=== PATIENT | female | born 1965 | race Caucasian/White ===

== ENCOUNTER → 2018-02-02 12:35 | Outpatient (CLI) | payer BC, SELFPAY ==
--- NOTE | 2018-02-02 12:40 | BI_ITS ---
MAMMOGRAPHY - BILATERAL SCREENING REASON FOR EXAM: Female, 52 years old. Routine annual screening examination. PERTINENT HISTORY: Aunt with breast cancer. TECHNIQUE: Digital bilateral breast good (3D mammographic acquisition) in the CC and MLO projections. 2-D mediolateral oblique (MLO) and craniocaudad (CC) views of both breasts were obtained. CAD: Full Field Digital Mammography with Computer Added Detection was performed. COMPARISON: Comparison is made with prior outside examination dated January 31, 2017. FINDINGS: Breast Composition: The breasts are extremely dense, which lowers the sensitivity of mammography. There are no dominant masses or suspicious calcifications. No other significant abnormalities are identified. There has been no significant change since the prior study. BI/SCREENING MAMM (CAD), BILAT IMPRESSION: Stable bilateral screening mammogram. Yearly follow-up mammogram recommended. (A) ASSESSMENT CATEGORY: BIRADS Category 1: Negative. A letter regarding these results will be sent to the patient by the facility within 30 days. Approximately 10% of breast cancers are not detected by mammography. A normal mammogram should not delay biopsy of a clinically suspicious abnormality. [id number] Electronically Signed: Parag Lai MD at 15:39 EST Tel [phone], Service support ,
== END ==
PROVIDERS: Visit Provider Obstetrics & Gynecology
DX: Z12.31 Encounter for screening mammogram for malignant neoplasm of breast (principal)
CPT/HCPCS: 77063; 77067

== ENCOUNTER → 2018-11-16 | Outpatient (CLI) | payer BC, SELFPAY ==
[2018-04-27 15:17] VITALS: BMI 30.4
[2018-11-16 17:30] LABS: Absolute Lymphocyte Count 2.49 X10^3/uL (0.83-4.51); Absolute Neutrophil Count 4.4 X10^3/uL (2.0-7.7); Basophil# 0.04 X10^3/uL; Basophil% 0.5 % (0-1); Eosinophil# 0.24 X10^3/uL; Eosinophils% 3.1 % (0-5); Hematocrit 43.7 % (37-47); Hemoglobin 14.9 g/dL (12.0-15.0); Lymphocyte # 2.49 X10^3/ul (4.0); Lymphocyte % 32.5 % (19-41); Mean Corp Hgb Conc 34.1 g/dL (32-36); Mean Corpuscular Volume 93.8 fL (81-99); Mean Platelet Vol. 10.4 fl (6.2-12.0); Monocyte# 0.48 X10^3/uL; Monocyte% 6.3 % (0-10); NRBC Flagged by Analyzer 0 % (0-5); Neutrophil % 57.3 % (47-70); Platelet Count 224 K/mm3 (150-450); RBC Distribution Width CV 11.9 % (11.6-14.6); RBC Distribution Width SD 40.6 fl (35.1-43.9); Red Blood Count 4.66 M/mm3 (4.2-5.4); White Blood Count 7.7 K/mm3 (4.4-11.0)
[2018-11-16 17:56] LABS: AST(SGOT) 21 U/L (15-37); Alanine Aminotransfer ALT/SGPT 28 U/L (13-56); Albumin, Serum 3.5 g/dL (3.2-5.0); Alkaline Phosphatase 62 U/L (45-117); Anion Gap 7 (5-15); BUN 20 mg/dL (7-18); BUN/Creat Ratio 23.6 RATIO (10-20); Calcium,Total 8.5 mg/dL (8.5-10.1); Chloride 108 mmol/L (98-107); Creatinine, Serum 0.85 mg/dL (0.55-1.02); EST Glomerular Filtration Rate 74 mL/min (>60); Est Glom Filt Rate - Afr Amer 90 mL/min (>60); Ferritin 294 ng/mL (8-252); Globulin 3.5 g/dL (2.2-4.2); Glucose 86 mg/dL (74-106); Potassium 3.9 mmol/L (3.5-5.1); Sodium Level 141 mmol/L (136-145)
[2018-11-23 12:50] LABS: Anti-Nuclear Antibody Test Negative (.)
== END | disposition home or self-care (01) ==
LOC: MTLAB 15:22
PROVIDERS: Family Provider Internal Medicine; PCP Internal Medicine; Referring Provider Physician Assistant; Visit Provider Physician Assistant
DX: L65.9 Nonscarring hair loss, unspecified (principal)
CPT/HCPCS: 36415; 80053; 82728; 85025; 86038

== ENCOUNTER → 2018-12-02 | Outpatient (CLI) | payer BC, SELFPAY ==
[2018-04-27 15:17] VITALS: BMI 30.4
[2018-12-02 14:26] LABS: T3 Uptake 35 % (30-39); T4 Free Direct 0.93 ng/dL (0.76-1.46); T4 Total, Thyroxin 8.1 ug/dL (4.8-13.9); T7 / Free Thyroxin Index 2.8 (1.4-4.5); Thyroid Stim Hormone (TSH) 2.08 uIU/mL (0.358-3.74)
== END | disposition home or self-care (01) ==
LOC: LAB.FUTURE 12:33
PROVIDERS: Family Provider Internal Medicine; PCP Internal Medicine; Referring Provider Physician Assistant; Visit Provider Physician Assistant
DX: L65.9 Nonscarring hair loss, unspecified (principal); L82.1 Other seborrheic keratosis; D18.01 Hemangioma of skin and subcutaneous tissue
CPT/HCPCS: 36415; 84436; 84439; 84443; 84479

== ENCOUNTER → 2019-02-03 12:55 | Outpatient (CLI) | payer OTHER, SELFPAY ==
[2018-04-27 15:17] VITALS: BMI 30.4
--- NOTE | 2019-02-03 12:59 | BI_ITS ---
MAMMOGRAPHY - BILATERAL SCREENING 3-D TOMOSYNTHESIS REASON FOR EXAM: Female, 53 years old. PERTINENT HISTORY: No significant family history. TECHNIQUE: 2-D mammograms and 3-D Tomosynthesis of the breast (s) were performed. CAD was performed. COMPARISON: February 02, 2018 FINDINGS: The breast composition is of heterogeneously dense fibroglandular tissue that may obscure subtle lesions. No dense spiculated masses or suspicious microcalcifications are identified. No architectural distortion is identified. There is no skin thickening or retraction. There has been no significant change since the prior study of February 02, 2018. BI/SCREEN MAMM (CAD) W/GEOFF BILAT IMPRESSION: No mammographic signs of malignancy. Routine yearly mammograms recommended. ASSESSMENT CATEGORY: BIRADS Category 1: Negative. A letter regarding these results will be sent to the patient by the facility within 30 days. FOLLOW UP RECOMMENDATION: Yearly follow up mammogram recommended. (A) Approximately 10% of breast cancers are not detected by mammography. A normal mammogram should not delay biopsy of a clinically suspicious abnormality. Electronically Signed: José Miguel Harman, at 13:20 EST Tel , Service support ,
== END ==
PROVIDERS: Family Provider Internal Medicine; PCP Internal Medicine; Referring Provider Obstetrics & Gynecology; Visit Provider Obstetrics & Gynecology
DX: Z12.31 Encounter for screening mammogram for malignant neoplasm of breast (principal)
CPT/HCPCS: 77063; 77067

== ENCOUNTER → 2019-09-22 12:44 | Outpatient (CLI) | payer OTHER, SELFPAY ==
[2019-03-25 15:23] VITALS: BMI 30.4
--- NOTE | 2019-09-22 12:49 | RAD_ITS ---
STUDY: X-RAY - RIGHT KNEE REASON FOR EXAM: Female, 54 years old. CHRONIC PAIN, NO INJURY TECHNIQUE: 4 view(s) of the knee. COMPARISON: None. FINDINGS: Normal visualized distal femur. Normal visualized proximal tibia and fibula. Normal proximal tibiofibular articulation. Normal medial femorotibial compartment. Normal lateral femorotibial compartment. There is moderate degenerative arthrosis of the patellofemoral articulation. The soft tissue structures are unremarkable. RAD/Knee 4 or More Views IMPRESSION: Isolated patellofemoral compartment arthrosis possibly from patellofemoral maltracking. MRI may be useful. Electronically Signed: Franky Dewitt MD at 13:25 EDT Tel , Service support ,
--- NOTE | 2019-09-22 12:49 | RAD_ITS ---
STUDY: X-RAY - LEFT KNEE REASON FOR EXAM: Female, 54 years old. CHRONIC PAIN, NO INJURY TECHNIQUE: 4 view(s) of the knee. COMPARISON: None. FINDINGS: Normal visualized distal femur. Normal visualized proximal tibia and fibula. Normal proximal tibiofibular articulation. Normal medial femorotibial compartment. Normal lateral femorotibial compartment. There is moderate degenerative arthrosis of the patellofemoral articulation. The soft tissue structures are unremarkable. RAD/Knee 4 or More Views IMPRESSION: Isolated patellofemoral compartment arthrosis possibly from patellofemoral maltracking. MRI may be useful. Electronically Signed: Franky Dewitt MD at 13:24 EDT Tel , Service support ,
[2019-09-22 16:24] LABS: Absolute Lymphocyte Count 2.44 X10^3/uL (0.83-4.51); Basophil# 0.03 X10^3/uL; Basophil% 0.4 % (0-1); Eosinophil# 0.25 X10^3/uL; Eosinophils% 3.4 % (0-5); Hematocrit 44.2 % (37-47); Hemoglobin 14.9 g/dL (12.0-15.0); Lymphocyte # 2.44 X10^3/ul (4.0); Lymphocyte % 33.6 % (19-41); Mean Corp Hgb Conc 33.7 g/dL (32-36); Mean Corpuscular Hgb 31.8 pg (27.0-32.0); Mean Corpuscular Volume 94.4 fL (81-99); Mean Platelet Vol. 10.2 fl (6.2-12.0); Monocyte% 6.9 % (0-10); NRBC Flagged by Analyzer 0 % (0-5); Neutrophil # 4.03 X10^3/uL (2.7-7.7); Neutrophil % 55.6 % (47-70); Platelet Count 246 K/mm3 (150-450); RBC Distribution Width CV 12.1 % (11.6-14.6); Red Blood Count 4.68 M/mm3 (4.2-5.4); White Blood Count 7.3 K/mm3 (4.4-11.0)
[2019-09-22 16:27] LABS: Vitamin B12 836 pg/mL (211-911); Vitamin D,25 Hydroxy 31.2 ng/mL
[2019-09-22 16:40] LABS: ALB/GLOB Ratio 1.1 RATIO (0.9-2.4); AST(SGOT) 23 U/L (15-37); Alanine Aminotransfer ALT/SGPT 31 U/L (13-56); Albumin, Serum 3.7 g/dL (3.2-5.0); Alkaline Phosphatase 55 U/L (45-117); Anion Gap 4 (5-15); BUN 12 mg/dL (7-18); BUN/Creat Ratio 16.8 RATIO (10-20); Chloride 110 mmol/L (98-107); Creatinine, Serum 0.72 mg/dL (0.55-1.02); EST Glomerular Filtration Rate 90 mL/min (>60); Est Glom Filt Rate - Afr Amer 108 mL/min (>60); Globulin 3.3 g/dL (2.2-4.2); Glucose 85 mg/dL (74-106); Potassium 3.9 mmol/L (3.5-5.1); Sodium Level 141 mmol/L (136-145); T4 Free Direct 1.02 ng/dL (0.76-1.46)
== END ==
PROVIDERS: PCP Family Medicine; Referring Provider Family Medicine; Visit Provider Family Medicine
DX: R53.83 Other fatigue (principal); E04.1 Nontoxic single thyroid nodule; M25.561 Pain in right knee; M25.562 Pain in left knee
CPT/HCPCS: 36415; 73564; 80053; 82306; 82607; 84439; 84443; 85025

== ENCOUNTER → 2019-10-04 09:05 | Outpatient (CLI) | payer OTHER, SELFPAY ==
[2019-03-25 15:23] VITALS: BMI 30.4
--- NOTE | 2019-10-04 09:12 | US_ITS ---
STUDY: THYROID ULTRASOUND REASON FOR EXAM: Female, 54 years old. NODULE FELT BY DOCTOR TECHNIQUE: Ultrasound evaluation of the thyroid was performed with real-time and static smith-scale imaging. COMPARISON: None. FINDINGS: RIGHT LOBE: The right lobe of the thyroid gland measures 4.2 x 1.5 x 1.9 cm. There is a homogeneous echotexture. Several primarily hypoechoic nodules are seen measuring 3 mm, 5 mm, and 10 mm. LEFT LOBE: The left lobe of the thyroid gland measures 4.2 x 1.8 x 1.4 cm. There is a homogeneous echotexture. There is a 1.5 cm solid lower pole nodule. ISTHMUS: The isthmus measures 3 mm . The regional lymph nodes are normal. US/Thyroid IMPRESSION: Several nodules as above including a dominant 1.5 cm nodule of the left lobe for which ultrasound-guided biopsy should be considered. Electronically Signed: Paras Ravi MD at 19:28 EDT , Service support ,
== END ==
PROVIDERS: PCP Family Medicine; Referring Provider Family Medicine; Visit Provider Family Medicine
DX: E04.1 Nontoxic single thyroid nodule (principal)
CPT/HCPCS: 76536

== ENCOUNTER → 2019-10-20 12:19 | Outpatient (CLI) | payer OTHER, SELFPAY ==
--- NOTE | 2019-10-20 08:50 | ASPS_PTH ---
PATIENT: MARCEL DUBON LOC: [facility] U#:[id number] AGE/SX: 59/F ROOM: RE10/20/[address]: Dr. Hayden Teran MD : 1965 BED: DIS: SPEC #: [id number] RECD: 10/20/19 12:12 STATUS: RUTHANN TESSY #: [id number] IZAIAH: 10/20/19 08:[address]: Hayden Teran DEPT: CYTOLOGY RECD BY: Armando Becker ENTERED: 10/20/19 12:31 SP TYPE: ASPIRATION OTHR DR: Dr. Alexander King MD Tissues: A - Thyroid gland, NOS B - Thyroid gland, NOS Procedures: Special Stain Group II Cytology Other HEADER OPERATION: Ultrasound-guided fine needle aspiration bilateral thyroid PRE-OP DIAGNOSIS: Multinodular goiter TISSUE SUBMITTED: A - Fine needle aspiration right thyroid slides x12, B - Fine needle aspiration left thyroid slides x12 DIAGNOSIS CYTOLOGY A. Right thyroid nodule, ultrasound-guided FNA (smears): Consistent with benign colloid nodule. Adequate for evaluation. B. Left thyroid nodule, ultrasound-guided FNA (smears): Consistent with benign follicular/colloid nodule with cystic changes. Adequate for evaluation. See comment. GEORGE:wero 10/21/19 COMMENT Correlation with clinical, radiologic findings and appropriate follow up are necessary. CYTOLOGY STUDY Slides are reviewed. CYTOLOGY GROSS A - Received are 12 smears labeled with the patient's name and designated per the requisition as right thyroid. Submitted for staining. B - Received are 12 smears labeled with the patient's name and designated per the requisition as left thyroid. Submitted for staining. / wero 10/20/19 TC:5 CPT: 74445 x2
[2019-10-20 08:54] VITALS: BMI 30.4
== END ==
PROVIDERS: PCP Family Medicine; Referring Provider Surgery; Visit Provider Surgery
DX: E04.2 Nontoxic multinodular goiter (principal)
CPT/HCPCS: 88161; 88313

== ENCOUNTER 2019-11-02 13:30 | Outpatient (RCR) | payer OTHER, SELFPAY ==
[2019-03-25 15:23] VITALS: BMI 30.4
--- NOTE | 2019-09-29 15:21 | HP.PTEVAL ---
Patient's Visit Information MARCEL DUBON is a 54 year old F referred to Physical Therapy by Dr. Alexander King MD with a diagnosis of B patellofemoral syndrome. Date of Evaluation: 09/29/19 Physical Therapist: Dino Arellano, PT, ATC - Visit Plan Frequency: 2-3x /Week Duration: 3 Weeks Plan: B LE stretching (IT band and HS's), strengthening (hip abd, VMO), balance and proprio, core strengthening, bike, and HEP - Subjective Pt reports B knee pain for several years. Pt [place] and attributes this pain to the type of work she has always had to do. Pt denies knees giving out, locking up, or popping in knees. Pt reports she does have a lot of crepitus in her knees. Pt reports running or squatting increases her pain. Pt also notes knee pain with stair negotiation. Pt denies any tingling or numbness in LE's. Pt reports sleep difficulty secondary to pain. 5/10 pain at rest, 7/10 pain at worst - Pain B knees Pain Intensity (Out of 10): 5 Pain Intensity Range: 7 - Objective Neuro: B LE sensation is WNL to light touch. B achilles reflex= 2/3. Palpation: Pt c/o pain on the medial joint line of B knees. Sig crepitus noted with B knee ROM. Pain on lateral border of B patellas. MMT: B knees 4+/5 throughout. ROM: R knee 0-126; L knee 0-128. Special testing: Pos Mcconnels sign - Goals Goal 1:: Decrease B knee pain x 50% to aid with sleep Goal Time Frame: 2-4 Weeks Goal 2:: Increase B knee strength x 1 grade to aid with work requirements Goal Time Frame: 2-4 Weeks Goal 3:: Increase B LE flexibility x 1 grade to aid with decreasing pain Goal Time Frame: 2-4 Weeks Goal 4:: I with HEP Goal Time Frame: 2-4 Weeks - Rehabilitation Potential Physical Therapy Diagnosis: B knee pain, weakness, and limited flexibility in B knees secondary to patellofemoral syndrome Rehabilitation Potential: Good - Anticipated Interventions Patient/Client Instruction: Educate patient on: Condition, Plan of Care For the Purpose of:: To improve self management Therapeutic Exercise to Include: Strength training, Endurance training, Balance training, Active ROM, Dynamic Lumbar Stabilization For the Purpose of:: To decrease pain, To increase ROM, To improve muscle performance and motor function Cryotherapy (ice pack, ice massage): Yes For the Purpose of:: To decrease pain Thank you for the opportunity to evaluate your patient. For Medicare and Medicare HMO plans, please review the plan of care and approve it. It will need to be FAXED BACK to us at [phone] for Medicare purposes. For Medicare only, by signing this I certify the plan of care. Please let me know if there are questions or concerns regarding this plan of care. Physician Signature: Date:
--- NOTE | 2019-10-22 17:07 | HP.PTREVAL ---
Dr. Alexander King MD, It has been my pleasure to treat MARCEL DUBON over the last 8 visits for B patellofemoral syndrome. Please see the progress note below for an update on the physical therapy plan of care! Subjective: Pt. reports being 60-70% better overall. Pt. has sore Objective/Function: ROM: Pt. has good ROM of B knees without increase in symptoms. Pt. does have some tigthness with end range B knee flexion but no pain. Pt. had great HS length and hip flexor length. MMT: 5/5 strength throughout, except hip abd 4+/5, and B hip ER/IR is 4/5. Gait: pt. had good gait pattern without increase in symptoms. STAIRS: Pt. is able to negotiate without HR, but does have increased B knee pain with descending. Squat: pt. has decent knee positoning with squating increased pain at ~70deg of knee flexion bilaterally. Increased tolerance with sumo squat positioning. Pt. is able to sleep throughout the night without incerase in symptoms, mo longer waking her up at night. Plan Plan: I would recommend that she come back for 2 visits with focus on hip ER/IR and abduction strengthening. She is doing well with HS and quad strength at this point in time. COnt. to progress HEP for all around B knee strengthening. She is going to alternate gym, but appears to be working mostly on cardio. Goals Goal 1:: Decrease B knee pain x 50% to aid with sleep Goal Time Frame: 2-4 Weeks Goal Progress: Progressing Goal 2:: Increase B knee strength x 1 grade to aid with work requirements Goal Time Frame: 2-4 Weeks Goal Progress: Progressing Goal 3:: Increase B LE flexibility x 1 grade to aid with decreasing pain Goal Time Frame: 2-4 Weeks Goal Progress: Goal Met Goal 4:: I with HEP Goal Time Frame: 2-4 Weeks Anticipated Interventions Patient/Client Instruction: Educate patient on: Condition, Plan of Care For the Purpose of:: To improve self management Therapeutic Exercise to Include: Strength training, Endurance training, Balance training, Active ROM, Dynamic Lumbar Stabilization For the Purpose of:: To decrease pain, To increase ROM, To improve muscle performance and motor function Cryotherapy (ice pack, ice massage): Yes For the Purpose of:: To decrease pain Please do not hesitate to contact me at [phone] by phone or if you have questions or concerns regarding this new plan of care! Sincerely, Alejo Hernández DPT
--- NOTE | 2019-11-02 16:33 | HP.PTDCSUM ---
It has been my pleasure to treat MARCEL DUBON referred by Dr. Alexander King MD, with the diagnosis of B patellofemoral syndrome for a total of 10 visit(s). Discharge Date: Please see the following information for a summary of their discharge status. Subjective: Minor pain today B knees Pain Intensity (Out of 10): 3 % Improvement: 75 Objective/Function: B knee pain is 3/10. B knee MMT: 5/5 throughout. B LE flexibility has improved. I with HEP, Rx goals achieved Goal 1:: Decrease B knee pain x 50% to aid with sleep Goal Progress: Goal Met Goal 2:: Increase B knee strength x 1 grade to aid with work requirements Goal Progress: Goal Met Goal 3:: Increase B LE flexibility x 1 grade to aid with decreasing pain Goal Progress: Goal Met Goal 4:: I with HEP Goal Progress: Goal Met Plan: Discharge If there are questions or concerns regarding this patient's physical therapy, please feel free to call me at [phone]. Thank you for the referral of this patient. Sincerely, Dino Arellano, PT, ATC
== END 2019-11-02 19:00 | disposition home or self-care (01) ==
LOC: PT 13:30
PROVIDERS: PCP Family Medicine; Referring Provider Family Medicine; Visit Provider Family Medicine
DX: M17.0 Bilateral primary osteoarthritis of knee (principal)
CPT/HCPCS: 97110; 97140; 97161; 97164

== ENCOUNTER → 2020-03-24 16:42 | Outpatient (CLI) | payer OTHER, SELFPAY ==
[2019-10-20 08:54] VITALS: BMI 30.4
[2020-03-24 18:09] LABS: Vitamin B12 910 pg/mL (211-911)
[2020-03-24 18:56] LABS: Thyroid Stim Hormone (TSH) 1.69 uIU/mL (0.358-3.74)
== END ==
PROVIDERS: PCP Family Medicine; Referring Provider Family Medicine; Visit Provider Family Medicine
DX: Q38.2 Macroglossia (principal); L65.9 Nonscarring hair loss, unspecified
CPT/HCPCS: 36415; 82607; 82746; 84443

== ENCOUNTER → 2020-04-12 12:56 | Outpatient (CLI) | payer OTHER, SELFPAY ==
[2019-10-20 08:54] VITALS: BMI 30.4
[2020-04-04 13:25] VITALS: BMI 25.7
--- NOTE | 2020-04-12 12:58 | BI_ITS ---
MAMMOGRAPHY - BILATERAL SCREENING REASON FOR EXAM: Female, 54 years old. Routine annual screening examination. PERTINENT HISTORY: Aunts with breast cancer. TECHNIQUE: Digital bilateral breast geoff (3D mammographic acquisition) in the CC and MLO projections. 2-D mediolateral oblique (MLO) and craniocaudad (CC) views of both breasts were obtained. CAD: Full Field Digital Mammography with Computer Added Detection was performed. COMPARISON: Comparison is made with prior study dated 02/03/2019 and 02/02/2018. FINDINGS: Breast Composition: The breasts are extremely dense, which lowers the sensitivity of mammography. There are no dominant masses or suspicious calcifications. No other significant abnormalities are identified. There has been no significant change since the prior study. BI/SCRN MAMM (CAD)W/GEOFF BILAT IMPRESSION: Stable bilateral screening mammogram. Yearly follow-up mammogram recommended. (A) ASSESSMENT CATEGORY: BIRADS Category 1: Negative. A letter regarding these results will be sent to the patient by the facility within 30 days. Approximately 10% of breast cancers are not detected by mammography. A normal mammogram should not delay biopsy of a clinically suspicious abnormality. [id number] Electronically Signed: Parag Lai MD at 13:43 EST , Service support ,
== END ==
PROVIDERS: PCP Family Medicine; Referring Provider Nurse Practitioner Women's Health; Visit Provider Nurse Practitioner Women's Health
DX: Z12.31 Encounter for screening mammogram for malignant neoplasm of breast (principal)
CPT/HCPCS: 77063; 77067

== ENCOUNTER → 2020-07-06 10:19 | Outpatient (CLI) | payer OTHER, SELFPAY ==
[2020-04-04 13:25] VITALS: BMI 25.7
[2020-07-06 10:26] LABS: Lyme Ab Screen Interpretation REF LAB
[2020-07-06 12:17] LABS: Erythrocyte Sedimentation Rate 2 mm/hr (0-30)
[2020-07-06 12:26] LABS: Rheumatoid Factor < 10.0 IU/mL (<15)
[2020-07-07 16:08] LABS: SJOGREN'S Anti-SS-A test < 0.2 AI (0.0-0.9); SJOGREN'S Anti-SS-B test < 0.2 AI (0.0-0.9)
[2020-07-07 16:47] LABS: ANTINUCLEAR ANTIBODIES DIRECT Negative (Negative)
[2020-07-07 16:48] LABS: Lyme Scn Total Ab w/Rflx <0.91 ISR (0.00-0.90)
== END ==
PROVIDERS: PCP Family Medicine; Referring Provider Family Medicine; Visit Provider Family Medicine
DX: M25.50 Pain in unspecified joint (principal)
CPT/HCPCS: 36415; 85652; 86038; 86235; 86431; 86618

== ENCOUNTER → 2020-12-07 10:16 | Outpatient (CLI) | payer OTHER, SELFPAY ==
[2020-12-07 12:38] LABS: ALB/GLOB Ratio 1.1 RATIO (0.9-2.4); AST(SGOT) 12 U/L (15-37); Alanine Aminotransfer ALT/SGPT 25 U/L (13-56); Albumin, Serum 3.4 g/dL (3.2-5.0); Alkaline Phosphatase 51 U/L (45-117); Anion Gap 4 (5-15); BUN 16 mg/dL (7-18); BUN/Creat Ratio 24.3 RATIO (10-20); Calcium,Total 8.7 mg/dL (8.5-10.1); Chloride 108 mmol/L (98-107); Creatinine, Serum 0.66 mg/dL (0.55-1.02); EST Glomerular Filtration Rate 98 mL/min (>60); Est Glom Filt Rate - Afr Amer 119 mL/min (>60); Globulin 3.1 g/dL (2.2-4.2); Glucose 92 mg/dL (74-106); Potassium 3.8 mmol/L (3.5-5.1); Protein, Total 6.5 g/dL (6.4-8.2); Sodium Level 140 mmol/L (136-145)
[2020-12-13 14:26] LABS: Zinc, Plasma or Serum 116 ug/dL (44-115)
== END ==
PROVIDERS: Psychiatry & Neurology Neurology; PCP Family Medicine; Referring Provider Family Medicine; Visit Provider Family Medicine
DX: K14.6 Glossodynia (principal)
CPT/HCPCS: 36415; 80053; 84630

== ENCOUNTER → 2020-12-12 12:17 | Outpatient (CLI) | payer OTHER, SELFPAY ==
--- NOTE | 2020-12-12 12:20 | MRI_ITS ---
EXAM: MR HEAD WITHOUT AND WITH INTRAVENOUS CONTRAST CLINICAL INDICATION: Tardive Dyskinesia: Rt Ear Pain TECHNIQUE: Multiplanar and multisequence MR images of the brain were obtained without and with intravenous contrast. This report was created using [employer] Simple[employer] Fast [employer] Elegant Tablet Sales App report GigDropper technology. CONTRAST: 16ml Dotarem via IV COMPARISON: None. FINDINGS: BRAIN AND EXTRA-AXIAL SPACES: 16 x 18 mm lesion along the left cerebellar extra-axial space. Series 11 image 9. There is no underlying cerebellar edema. However, there is mass effect upon the left cerebral hemisphere. No intra- or extra-axial hemorrhage. No evidence of acute infarct. There is preservation of the smith/white matter interface. Ventricles are appropriate for age. No hydrocephalus. Basal cisterns are patent. SELLA: Unremarkable. Normal sella turcica, pituitary gland, infundibular stalk, optic chiasm and hypothalamus. AUDITORY SYSTEM: Unremarkable. The internal auditory canals are patent. BONES/JOINTS: Unremarkable. No discrete lytic or blastic abnormalities. SINUSES: Unremarkable as visualized. Clear. MASTOID AIR CELLS: Unremarkable as visualized. Clear. ORBITS: Unremarkable as visualized. Both globes, extraocular muscles, optic nerves and retrobulbar fat appear unremarkable. VASCULATURE: Unremarkable as visualized. Normal flow voids in the major intracranial circulation. MRI/Brain W/WO Contrast IMPRESSION: Findings suggesting a left Tentorial meningioma. Electronically Signed: Dino Ku MD at 14:09 EDT , Service support ,
== END ==
PROVIDERS: PCP Family Medicine; Referring Provider Psychiatry & Neurology Neurology; Visit Provider Psychiatry & Neurology Neurology
DX: G24.01 Drug induced subacute dyskinesia (principal); H92.01 Otalgia, right ear
CPT/HCPCS: 70553; A9575

== ENCOUNTER → 2021-01-18 14:40 | Outpatient (CLI) | payer OTHER, SELFPAY ==
--- NOTE | 2021-01-18 14:42 | RAD_ITS ---
STUDY: XR Wrist Min 3 Views REASON FOR EXAM: Female, 55 years old. PAIN TECHNIQUE: XR Wrist Min 3 Views COMPARISON: None. FINDINGS: There are no acute findings of the visualized distal radius and ulna. There are no acute findings of the radiocarpal articulation. Normal distal radioulnar articulation. Normal carpal bones. Normal carpal articulations. There are no acute findings of the carpometacarpal articulation of the thumb. Normal second through fifth carpometacarpal articulations. There are no acute findings of the visualized metacarpal bones. The soft tissue structures are unremarkable. RAD/Wrist min 3 Views IMPRESSION: There are no acute findings of the wrist. Electronically Signed: Dino Ku MD at 16:53 EST , Service support ,
--- NOTE | 2021-01-18 14:42 | RAD_ITS ---
STUDY: XR Shoulder Min 2 Views REASON FOR EXAM: Female, 55 years old. PAIN TECHNIQUE: XR Shoulder Min 2 Views COMPARISON: None. FINDINGS: Normal glenohumeral articulation. There is degenerative arthrosis of the acromioclavicular joint without inferior osseous spur formation. Normal acromion. Normal humeral head and visualized proximal humerus. There is periarticular soft tissue calcification consistent with a calcific tendinitis. Normal visualized pulmonary apex. RAD/Shoulder min 2 Views IMPRESSION: There is periarticular soft tissue calcification consistent with a calcific tendinitis. Electronically Signed: Dino Ku MD at 16:53 EST , Service support ,
== END ==
PROVIDERS: PCP Family Medicine; Referring Provider Family Medicine; Visit Provider Family Medicine
DX: M25.511 Pain in right shoulder (principal); M25.531 Pain in right wrist
CPT/HCPCS: 73030; 73110

== ENCOUNTER → 2021-03-01 11:36 | Outpatient (CLI) | payer OTHER, SELFPAY ==
--- NOTE | 2021-03-01 11:38 | RAD_ITS ---
INDICATION: neck pain EXAMINATION/TECHNIQUE: X-RAY - XR Spine Cervical 2 or 3 Views COMPARISON: None. FINDINGS: VERTEBRAE: Preserved vertebral body height. No fracture. No spondylolisthesis. Preservation of the normal cervical lordosis. No significant facet arthropathy. DISCS: Minimal intervertebral disc height loss C4-5 C5-6 levels with trace degenerative endplate changes. Intact odontoid process and normal C1-C2 lateral patellar alignment. NECK SOFT TISSUES: No prevertebral soft tissue widening. LUNG APICES: Clear. RAD/Cerv Spine 2 or 3 Views IMPRESSION: No evidence of acute fracture or spondylolisthesis. Electronically Signed: Kashif Madrid DO at 22:00 EST Tel , Service support ,
== END ==
PROVIDERS: PCP Family Medicine; Referring Provider Psychiatry & Neurology Neurology; Visit Provider Psychiatry & Neurology Neurology
DX: M54.2 Cervicalgia (principal)
CPT/HCPCS: 72040

== ENCOUNTER 2021-03-21 17:14 | Outpatient (CLI) | payer OTHER, SELFPAY | END 2021-03-21 23:59 | disposition short-term general hospital (02) | PROVIDERS: PCP Family Medicine; Referring Provider Family Medicine; Visit Provider Family Medicine | DX: U07.1 COVID-19 (principal); B34.9 Viral infection, unspecified | CPT/HCPCS: 87635; U0003; U0005 ==

== ENCOUNTER 2021-04-13 11:42 | Outpatient (CLI) | payer OTHER, SELFPAY ==
--- NOTE | 2021-04-13 11:44 | BI_ITS ---
MAMMOGRAPHY - BILATERAL SCREENING REASON FOR EXAM: Female, 55 years old. Routine annual screening examination. PERTINENT HISTORY: Grandmother with breast cancer. Aunts with breast cancer. TECHNIQUE: Digital bilateral breast geoff (3D mammographic acquisition) in the CC and MLO projections. 2-D mediolateral oblique (MLO) and craniocaudad (CC) views of both breasts were obtained. CAD: Full Field Digital Mammography with Computer Added Detection was performed. COMPARISON: Comparison is made with prior study dated 04/12/2020 and 02/03/2019. FINDINGS: Breast Composition: The breasts are extremely dense, which lowers the sensitivity of mammography. There are no dominant masses or suspicious calcifications. No other significant abnormalities are identified. There has been no significant change since the prior study. BI/SCRN MAMM (CAD)W/GEOFF BILAT IMPRESSION: Stable bilateral screening mammogram. Yearly follow-up mammogram recommended. (A) ASSESSMENT CATEGORY: BIRADS Category 1: Negative. A letter regarding these results will be sent to the patient by the facility within 30 days. Approximately 10% of breast cancers are not detected by mammography. A normal mammogram should not delay biopsy of a clinically suspicious abnormality. [id number] Electronically Signed: Parag Lai MD at 11:17 EST ,
== END 2021-04-13 23:59 | disposition short-term general hospital (02) ==
LOC: OPBI 11:42
PROVIDERS: PCP Family Medicine; Referring Provider Nurse Practitioner Women's Health; Visit Provider Nurse Practitioner Women's Health
DX: Z12.31 Encounter for screening mammogram for malignant neoplasm of breast (principal)
CPT/HCPCS: 77063; 77067

== ENCOUNTER 2021-05-31 14:31 | Outpatient (CLI) | payer OTHER, SELFPAY ==
[2021-06-04 08:19] LABS: Vitamin D 1,25-Dihydroxy 50.4 pg/mL (19.9-79.3)
== END 2021-05-31 23:59 | disposition home or self-care (01) ==
LOC: MTLAB 14:31
PROVIDERS: PCP Family Medicine; Referring Provider Psychiatry & Neurology Neurology; Visit Provider Psychiatry & Neurology Neurology
DX: K14.6 Glossodynia (principal)
CPT/HCPCS: 36415; 82652

== ENCOUNTER 2021-06-18 15:19 | Outpatient (CLI) | payer OTHER, SELFPAY ==
--- NOTE | 2021-06-18 15:33 | MRI_ITS ---
STUDY: MRI BRAIN WITH AND WITHOUT CONTRAST REASON FOR EXAM: Female, 56 years old. intracranial meningioma follow-up scan TECHNIQUE: Standardized multiplanar fat and water weighted pulse sequences were obtained. IV 16mL DOTAREM was administered for the contrast portion of the examination. COMPARISON: MRI of the brain dated December 12, 2020 FINDINGS: Normal size of the ventricles and extra-axial spaces for the patient''s age. Normal white matter tracts of the supratentorial brain. Normal T2* images of the brain without demonstrated susceptibility artifact. There is no demonstrated hemosiderin stain. There is no evidence for recent intracranial ischemia or other cause of cytotoxic edema on diffusion weighted imaging (DWI). Normal bilateral basal ganglia. Normal thalami. There is no extra-axial fluid accumulation. Normal flow voids within the major intracranial circulation suggesting patency by spin echo criteria. Normal venous enhancement. There is no enhancing intra-axial or extra-axial abnormality. Normal sella turcica, pituitary gland, infundibular stalk, optic chiasm and hypothalamus. Normal tectal plate and pineal gland. Normal midbrain, jayy and medulla. Stable benign 1.76 x 1.74 cm small meningioma in the posterior midline extra-axial space of the left cerebellar lobe. Normal remaining aspects of the cerebellum. Normal basal cisterns. Normal bilateral temporal bones. Normal bilateral internal auditory canals. No demonstrated orbital abnormality, within the constraints of a routine brain study. Normal visualized paranasal sinuses. Normal calvarium and skull base. Normal visualized soft tissue structures. Normal visualized upper cervical spine. MRI/Brain W/WO Contrast IMPRESSION: 1. Stable benign 1.76 x 1.74 cm small meningioma in the posterior midline extra-axial space of the left cerebellar lobe. Normal remaining aspects of the cerebellum. Electronically Signed: Armando Magdaleno MD at 13:50 EDT ,
== END 2021-06-18 23:59 | disposition home or self-care (01) ==
PROVIDERS: PCP Family Medicine; Visit Provider Psychiatry & Neurology Neurology
DX: D32.0 Benign neoplasm of cerebral meninges (principal)
CPT/HCPCS: 70553; A9581

== ENCOUNTER → 2021-07-31 | Outpatient (CLI) | payer OTHER, SELFPAY ==
--- NOTE | 2021-07-31 10:11 | RAD_ITS ---
EXAM: XR RIGHT KNEE, 3 VIEWS CLINICAL INDICATION: PAIN TECHNIQUE: Three views of the right knee. This report was created using [employer] report generation technology. COMPARISON: None. FINDINGS: BONES/JOINTS: Mild posterior periarticular osteophytes of the patella on the lateral view. No acute fracture. No subluxation. Normal alignment. Preservation of the joint space. No sclerotic or destructive changes observed. SOFT TISSUES: Unremarkable. No soft tissue swelling or gas. No radiopaque foreign body. RAD/Knee 3 Views IMPRESSION: Mild degenerative change involving patellofemoral joint. Otherwise unremarkable exam. Electronically Signed: Amanda Dhillon MD at 5:08 EDT ,
--- NOTE | 2021-07-31 10:11 | RAD_ITS ---
STUDY: X-RAY - LEFT KNEE REASON FOR EXAM: Female, 56 years old. PAIN TECHNIQUE: 3 view(s) of the knee. COMPARISON: Left knee x-rays 09/22/2019. FINDINGS: BONES: No fracture demonstrated. Degenerative changes predominantly at the patellofemoral joint space. Mild spurring at the tibial spines. JOINTS: No dislocation. SOFT TISSUES: Unremarkable. RAD/Knee 3 Views IMPRESSION: Degenerative changes. No evidence of fracture. Electronically Signed: Chelsie Ramey MD at 6:45 EDT ,
== END | disposition home or self-care (01) ==
LOC: MTRAD 10:10
PROVIDERS: PCP Family Medicine; Referring Provider Family Medicine; Visit Provider Family Medicine
DX: M25.561 Pain in right knee (principal); M25.562 Pain in left knee
CPT/HCPCS: 73562

== ENCOUNTER → 2021-10-03 | Outpatient (CLI) | payer OTHER, SELFPAY ==
[2021-10-03 17:40] LABS: Absolute Lymphocyte Count 2.55 X10^3/uL (0.83-4.51); Absolute Neutrophil Count 4.9 X10^3/uL (2.0-7.7); Basophil# 0.04 X10^3/uL; Basophil% 0.5 % (0-1); Eosinophil# 0.25 X10^3/uL; Hematocrit 42.2 % (37-47); Hemoglobin 14.3 g/dL (12.0-15.0); Lymphocyte # 2.55 X10^3/ul (0.83-4.51); Lymphocyte % 30.5 % (19-41); Mean Corp Hgb Conc 33.9 g/dL (32-36); Mean Corpuscular Hgb 31.6 pg (27.0-32.0); Mean Corpuscular Volume 93.2 fL (81-99); Mean Platelet Vol. 9.9 fl (6.2-12.0); Monocyte# 0.56 X10^3/uL; Monocyte% 6.7 % (0-10); NRBC Flagged by Analyzer 0 % (0-5); Neutrophil # 4.92 X10^3/uL (2.7-7.7); Neutrophil % 58.9 % (47-70); Platelet Count 248 K/mm3 (150-450); RBC Distribution Width CV 11.9 % (11.6-14.6); RBC Distribution Width SD 40.6 fl (35.1-43.9); Red Blood Count 4.53 M/mm3 (4.2-5.4); White Blood Count 8.4 K/mm3 (4.4-11.0)
[2021-10-03 18:16] LABS: ALB/GLOB Ratio 1.2 RATIO (0.9-2.4); AST(SGOT) 17 U/L (15-37); Alanine Aminotransfer ALT/SGPT 24 U/L (13-56); Albumin, Serum 3.6 g/dL (3.2-5.0); Alkaline Phosphatase 55 U/L (45-117); Anion Gap 4 (5-15); BUN 19 mg/dL (7-18); BUN/Creat Ratio 25.5 RATIO (10-20); Calcium,Total 8.7 mg/dL (8.5-10.1); Chloride 108 mmol/L (98-107); Creatinine, Serum 0.74 mg/dL (0.55-1.02); EST Glomerular Filtration Rate 85 mL/min (>60); Est Glom Filt Rate - Afr Amer 103 mL/min (>60); Globulin 3.1 g/dL (2.2-4.2); Glucose 112 mg/dL (74-106); Potassium 3.6 mmol/L (3.5-5.1); Protein, Total 6.7 g/dL (6.4-8.2); Sodium Level 140 mmol/L (136-145); T4 Free Direct 0.94 ng/dL (0.76-1.46); Thyroid Stim Hormone (TSH) 1.38 uIU/mL (0.358-3.74)
[2021-10-04 13:58] LABS: Hemoglobin A1c 5.1 % (3.8-5.6)
== END | disposition home or self-care (01) ==
PROVIDERS: PCP Family Medicine; Referring Provider Family Medicine; Visit Provider Family Medicine
DX: E04.2 Nontoxic multinodular goiter (principal)
CPT/HCPCS: 36415; 80053; 83036; 84439; 84443; 85025

== ENCOUNTER → 2021-10-12 | Outpatient (CLI) | payer OTHER, SELFPAY ==
--- NOTE | 2021-10-12 11:59 | US_ITS ---
INDICATION: NODULES EXAMINATION: Ultrasound US Thyroid (eg thyroid, parathyroid, parotid) TECHNIQUE: Anderson scale and color doppler imaging was performed of the thyroid gland. COMPARISON: 10/20/2019.. FINDINGS: FINDINGS: RIGHT THYROID LOBE: The right lobe of the thyroid gland is unremarkable in size demonstrates homogeneous echogenicity with unremarkable vascularity, The right lobe of the thyroid gland measures 4.5 x 1.7 x 1.9 cm. Multiple colloid cysts measuring less than 0.5 cm are visualized in the right lobe. There is a single nodule visualized in the midpole of the right lobe, #1- Location: Midpole Size: 0.6 x 0.6 x 0.6 cm Composition: 0 Echogenicity: 0 Shape: 0 Margins: 0 Echogenic Foci: The Total points 0, TIRADS level TR1 LEFT THYROID LOBE: The left lobe of the thyroid gland is unremarkable in size demonstrating homogenous echogenicity and unremarkable vascularity. The left lobe of the thyroid gland measures 3.5 x 1.7 x 1.4 cm. Multiple colloid cysts measuring less than 0.5 cm are visualized in the left lobe. A single nodule is visualized within the lower pole of the left lobe, this nodule demonstrates increased vascularity. #2- Location: Lower pole Size: 1.5 x 1.5 x 1.2. Composition: 2 Echogenicity: 1 Shape: 0 Margins: 0 Echogenic Foci: 0 Total points 3, TIRADS level TR3 ISTHMUS: The isthmus demonstrates homogenous echogenicity and measures 0.3 cm in AP diameter. No evidence of nodules within the isthmus. US/Thyroid IMPRESSION: Enlargement of both lobes of the thyroid gland. A 0.6 cm TR 1 nodule is visualized in the midpole of the right lobe. A 1.5 cm TR 3 hypervascular nodule in the lower pole of the left lobe. TI-RADS follow up recommendations: TR1: Benign (0pts) No FNA biopsy. TR2: Not suspicious (2 pts) No FNA biopsy. TR3: Mildly suspicious (3 pts) FNA biopsy if nodule at least 2.5cm; follow if at least 1.5cm. TR4: Moderately suspicious (4-6 pts) FNA biopsy if nodule at least 1.5cm; follow if at least 1 cm. TR5: Highly suspicious (at least 7 pts) FNA if nodule at least 1cm; follow if at least 0.5cm. Electronically Signed: Jovany Valdez MD at 16:10 EDT Reading Location ID and State: [facility] / [place] Tel , Service support ,
== END | disposition home or self-care (01) ==
PROVIDERS: PCP Family Medicine; Referring Provider Family Medicine; Visit Provider Family Medicine
DX: E04.2 Nontoxic multinodular goiter (principal)
CPT/HCPCS: 76536

== ENCOUNTER → 2022-03-26 | Outpatient (CLI) | payer OTHER, SELFPAY ==
--- NOTE | 2022-03-26 08:49 | BI_ITS ---
MAMMOGRAPHY - BILATERAL DIAGNOSTIC REASON FOR EXAM: Female, 56 years old. Right retroareolar breast pain. PERTINENT HISTORY: Grandmother with breast cancer. Aunt with breast cancer. TECHNIQUE: Digital bilateral breast good (3D mammographic acquisition) in the CC and MLO projections. 2-D mediolateral oblique (MLO) and craniocaudad (CC) views of both breasts were obtained. CAD: Full Field Digital Mammography with Computer Added Detection was performed. COMPARISON: Comparison is made with prior study dated 04/13/2021 and 04/12/2020. FINDINGS: Breast Composition: The breasts are extremely dense, which lowers the sensitivity of mammography. There are no dominant masses or suspicious calcifications. No other significant abnormalities are identified. There has been no significant change since the prior study. BI/DIAG MAMM W/CAD, BILAT IMPRESSION: Stable bilateral diagnostic mammogram. With the patient''s history of right retroareolar breast pain, targeted ultrasound of the breast is recommended. ASSESSMENT CATEGORY: BIRADS Category 0: Incomplete. Need additional imaging evaluation. A letter regarding these results will be sent to the patient by the facility within 30 days. Approximately 10% of breast cancers are not detected by mammography. A normal mammogram should not delay biopsy of a clinically suspicious abnormality. Electronically Signed: Parag Lai MD at 15:53 EST ,
--- NOTE | 2022-03-26 08:49 | US_ITS ---
STUDY: ULTRASOUND BREAST - RIGHT REASON FOR EXAM: Female, 56 years old. Pain adjacent to the areolar region. TECHNIQUE: Axial and longitudinal images of the RIGHT breast were performed with a high resolution ultrasound transducer. # OF IMAGES: 27 COMPARISON: Comparison is made with prior mammogram done earlier in the day. FINDINGS: RIGHT Breast: The retroareolar region of the breast was examined with ultrasound. No sonographic abnormality is seen. US/Breast Limited Unilateral IMPRESSION: No sonographic abnormality is seen. ASSESSMENT CATEGORY: BIRADS Category 1: Negative. A letter regarding these results will be sent to the patient by the facility within 30 days. Electronically Signed: Parag Lai MD at 14:10 EST ,
== END | disposition home or self-care (01) ==
PROVIDERS: PCP Family Medicine; Visit Provider Nurse Practitioner Women's Health
DX: N64.4 Mastodynia (principal)
CPT/HCPCS: 76642; 77062; 77066; G0279

== ENCOUNTER → 2022-11-13 | Outpatient (CLI) | payer OTHER, SELFPAY ==
--- NOTE | 2022-11-13 12:33 | MRI_ITS ---
EXAM: MR HEAD WITHOUT AND WITH INTRAVENOUS CONTRAST CLINICAL INDICATION: Monitor meningioma TECHNIQUE: Multiplanar and multisequence MR images of the brain were obtained without and with intravenous contrast. CONTRAST: IV clariscan 16ml COMPARISON: Previous MRI brain 06/18/2021 FINDINGS: BRAIN AND EXTRA-AXIAL SPACES: Stable extra-axial enhancing lesion consistent with a meningioma in the left posterior fossa measuring up to 1.8 x 1.7 cm. No other abnormal areas of enhancement identified after contrast administration. No edema in the adjacent cerebellar parenchyma or elsewhere. No intra- or extra-axial hemorrhage. No evidence of acute infarct. There is preservation of the smith/white matter interface. Ventricles are appropriate for age. No hydrocephalus. Basal cisterns are patent. SELLA: Unremarkable. Normal sella turcica, pituitary gland, infundibular stalk, optic chiasm and hypothalamus. AUDITORY SYSTEM: Unremarkable. The internal auditory canals are patent. BONES/JOINTS: Unremarkable. No discrete lytic or blastic abnormalities. SINUSES: Unremarkable as visualized. Clear. MASTOID AIR CELLS: Unremarkable as visualized. Clear. ORBITS: Unremarkable as visualized. Both globes, extraocular muscles, optic nerves and retrobulbar fat appear unremarkable. VASCULATURE: Unremarkable as visualized. Normal flow voids in the major intracranial circulation. MRI/Brain W/WO Contrast IMPRESSION: Stable extra-axial enhancing lesion consistent with a meningioma in the left posterior fossa measuring up to 1.8 x 1.7 cm. Electronically Signed: Dino Escalante MD at 0:35 EDT ,
== END | disposition home or self-care (01) ==
PROVIDERS: PCP Family Medicine; Referring Provider Psychiatry & Neurology Neurology; Visit Provider Psychiatry & Neurology Neurology
DX: D32.0 Benign neoplasm of cerebral meninges (principal)
CPT/HCPCS: 70553; A9575

== ENCOUNTER → 2023-05-29 | Outpatient (CLI) | payer OTHER, SELFPAY ==
[2023-05-29 14:04] LABS: Bacteria 0 SEEN /hpf (None Seen); Mucous, Urine 0 SEEN /hpf (<or=2+); Red Blood Cells-Urine 0 SEEN /hpf (0-5); Squamous Epithelial Cells - UA 0 SEEN /hpf (5-10); White Blood Cells 0 SEEN /hpf (0-5)
[2023-05-29 15:15] LABS: Absolute Lymphocyte Count 2.34 X10^3/uL (0.83-4.51); Absolute Neutrophil Count 4.8 X10^3/uL (2.0-7.7); Basophil# 0.04 X10^3/uL; Basophil% 0.5 % (0-1); Eosinophil# 0.18 X10^3/uL; Eosinophils% 2.3 % (0-5); Hematocrit 43.2 % (37-47); Hemoglobin 14.7 g/dL (12.0-15.0); Lymphocyte # 2.34 X10^3/ul (0.83-4.51); Mean Corpuscular Hgb 31.7 pg (27.0-32.0); Mean Corpuscular Volume 93.1 fL (81-99); Monocyte# 0.47 X10^3/uL; NRBC Flagged by Analyzer 0 % (0-5); Neutrophil # 4.75 X10^3/uL (2.7-7.7); Neutrophil % 60.9 % (47-70); Platelet Count 247 K/mm3 (150-450); RBC Distribution Width CV 11.8 % (11.6-14.6); RBC Distribution Width SD 40.3 fl (35.1-43.9); Red Blood Count 4.64 M/mm3 (4.2-5.4); White Blood Count 7.8 K/mm3 (4.4-11.0)
[2023-05-29 15:29] LABS: Color, Urine Yellow (Yellow); Glucose, Dipstick Normal (Normal); Ketone-Dipstick 5 mg/dl (Negative); Leukocyte Esterase-Dipstick Negative /ul (Negative); Nitrite-Dipstick Negative (Negative); Occult Blood-Urine Negative /ul (Negative); Protein-Dipstick Negative (Negative); Urine Bilirubin Dipstick Negative (Negative); Urine Clarity Clear (Clear); Urine Urobilinogen Normal (Normal)
[2023-05-29 15:48] LABS: ALB/GLOB Ratio 1.2 RATIO (0.9-2.4); AST(SGOT) 29 U/L (15-37); Alanine Aminotransfer ALT/SGPT 29 U/L (13-56); Albumin, Serum 3.7 g/dL (3.2-5.0); Alkaline Phosphatase 52 U/L (45-117); Anion Gap 5 (5-15); BUN 16 mg/dL (7-18); BUN/Creat Ratio 23.8 RATIO (10-20); Calcium,Total 8.9 mg/dL (8.5-10.1); Chloride 108 mmol/L (98-107); Cholesterol 253 mg/dL (200); Creatinine, Serum 0.67 mg/dL (0.55-1.02); EST Glomerular Filtration Rate 95 mL/min (>60); Est Glom Filt Rate - Afr Amer 115 mL/min (>60); Globulin 3.2 g/dL (2.2-4.2); Glucose 88 mg/dL (74-106); High Density Lipoprotein 84 mg/dL; Magnesium 2.3 mg/dL (1.6-2.6); Protein, Total 6.9 g/dL (6.4-8.2); Sodium Level 140 mmol/L (136-145); Thyroid Stim Hormone (TSH) 1.55 uIU/mL (0.358-3.74); Triglycerides 117 mg/dL; Very Low Density Lipoprotein 23 mg/dL (5-40)
== END | disposition home or self-care (01) ==
LOC: MTLAB 13:59
PROVIDERS: PCP Family Medicine; Referring Provider Family Medicine; Visit Provider Family Medicine
DX: R03.0 Elevated blood-pressure reading, without diagnosis of hypertension (principal)
CPT/HCPCS: 80053; 80061; 81001; 83735; 84443; 85025

== ENCOUNTER → 2023-06-26 | Outpatient (CLI) | payer OTHER, SELFPAY ==
--- NOTE | 2023-06-26 14:19 | RAD_ITS ---
STUDY: X-RAY - LEFT KNEE REASON FOR EXAM: Female, 58 years old. PAIN TECHNIQUE: 3 views of the left knee. COMPARISON: Left knee radiographs dated 07/31/2021. FINDINGS: Normal visualized distal femur. Normal visualized proximal tibia and fibula. Normal proximal tibiofibular articulation. There is no demonstrated fracture. Normal medial femorotibial compartment. Normal lateral femorotibial compartment. There is persistent minimal degenerative arthrosis of the patellofemoral articulation. The soft tissue structures are unremarkable. 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 Electronically Signed: Isrrael Gonzalez MD at 16:01 EDT ,
--- NOTE | 2023-06-26 14:20 | RAD_ITS ---
STUDY: X-RAY - RIGHT KNEE REASON FOR EXAM: Female, 58 years old. Pain. TECHNIQUE: 3 views of the right knee. COMPARISON: None. FINDINGS: Normal visualized distal femur. Normal visualized proximal tibia and fibula. Normal proximal tibiofibular articulation. There is no demonstrated fracture. Normal medial femorotibial compartment. Normal lateral femorotibial compartment. There is minimal degenerative arthrosis of the patellofemoral articulation. The soft tissue structures are unremarkable. RAD/Knee 3 Views IMPRESSION: Minimal degenerative arthrosis of the patellofemoral joint. No demonstrated fracture. Electronically Signed: Isrrael Gonzalez MD at 15:59 EDT ,
== END | disposition home or self-care (01) ==
LOC: MTRAD 14:18
PROVIDERS: PCP Family Medicine; Referring Provider Family Medicine; Visit Provider Family Medicine
DX: M25.561 Pain in right knee (principal); M25.562 Pain in left knee
CPT/HCPCS: 73562

== ENCOUNTER → 2023-07-29 | Outpatient (CLI) | payer OTHER, SELFPAY | END | disposition home or self-care (01) | LOC: LABSPEC 17:50 | PROVIDERS: PCP Family Medicine; Visit Provider Physician Assistant | DX: L03.116 Cellulitis of left lower limb (principal) | CPT/HCPCS: 87070; 87077; 87186; 87205 ==

== ENCOUNTER → 2023-07-31 | Outpatient (CLI) | payer OTHER, SELFPAY ==
--- NOTE | 2023-07-31 12:34 | US_ITS ---
EXAM: US LEFT LOWER EXTREMITY NON-VASCULAR, COMPLETE CLINICAL INDICATION: non-healing puncture wound left lower extremity TECHNIQUE: Real-time ultrasound scan of the left lower extremity with image documentation. COMPARISON: No relevant prior studies available. FINDINGS: SOFT TISSUES: 2.6 x 1.9 x 1.1 cm complex fluid collection noted within the left lower leg at the site of puncture wound. Collection is avascular and is consistent with hematoma. Underlying infection is not excluded. US/Ext Non Vasc Limited/Soft Tiss IMPRESSION: Complex left leg collection as described. Electronically Signed: Virgilio Sanabria MD at 17:03 EDT ,
== END | disposition home or self-care (01) ==
PROVIDERS: PCP Family Medicine; Referring Provider Family Medicine; Visit Provider Family Medicine
DX: T14.8XXA Other injury of unspecified body region, initial encounter (principal)
CPT/HCPCS: 76882

== ENCOUNTER 2023-08-01 10:02 | Emergency (ER) | payer OTHER, SELFPAY ==
[2023-08-01 10:02] VITALS: BP 160/96; PULSE 81; RESP 14; TEMP 36.1; O2SAT 97; BMI 29.2
--- NOTE | 2023-08-01 10:16 | ED.VIS.LOWEX ---
HPI History of Present Illness Chief Complaint: Wound Detail of Chief Complaint: Infection left leg requiring IV antibiotics Informant: patient Occured/Mechanism Mechanism/Context: Yes injury Comment: Bit by dog approximately 5 weeks ago Onset/Context/Timing Onset: Weeks Context: Sudden Onset Timing: Continuous and Waxes and wanes Location: Pressure medial mid left leg Current Severity: Mild Maximum Severity: Mild Worsened by: Abscess that needs to be drained Relieved by: Presently nothing Narrative Narrative: Patient is a 58-year-old woman. She denies history of rheumatic fever, heart murmur mitral valve collapse or she had a culture on any immunosuppressive agents. She was bit by her dog 5 weeks ago. It was accidental. Performed on July 28 that grew Staph aureus, MSSA. Patient denies fever, chills night sweats. Patient does have allergy to sulfa with hives. Patient has noted some drainage. She states the person at the now clinic pushed on it and took a swab of the surface. Prior similar symptoms: Yes Recent Illness/Hospitalization: Yes [facility] Medical History Cellulitis of left lower leg Burning mouth syndrome Multinodular goiter Arthritis Symptomatic menopausal or female climacteric states Rosacea Osteoarthritis of both knees Lump of breast Disorder of left rotator cuff Candidal vulvovaginitis Home Medications ?Medication ?Instructions ?Recorded ?Last Taken ?Type estradiol 0.05 mg/24 hr weekly 1 patch transdermal QWEEK #12 ea 07/08/22 07/27/23 Rx transdermal patch gabapentin 100 mg capsule See Rx Instructions .Route 12/16/22 07/31/23 Rx .COMPLEX #30 caps doxycycline monohydrate 100 mg 100 mg PO BID #20 caps 07/29/23 08/01/23 Rx capsule amoxicillin 875 mg-potassium 875 mg PO Q12H #14 TABLETS 08/01/23 Unknown Rx clavulanate 125 mg tablet Allergy/AdvReac Type Severity Reaction Status Date / Time insect venom (yellow jacket) Allergy Severe Swelling Verified 08/01/23 10:03 Sulfa (Sulfonamide Allergy Intermediate Hives Verified 08/01/23 10:03 Antibiotics) Family History Mother Diabetes Alzheimer's dementia Father Heart disease Diabetes Grandmother Diabetes COPD (chronic obstructive pulmonary disease) Breast cancer Colon cancer Aunt Breast cancer Brother Diabetes Grandfather CVA (cerebral vascular accident) Brother Kidney malignant neoplasm Other Hypertension Surgical History dental laser surgery history of thyroid biopsy (~10/20/19) History of total abdominal hysterectomy History of bilateral ligation of fallopian tubes H/O colonoscopy Social History Smoking Status: Never smoker Electronic Cigarette Use: not used second hand exposure: No alcohol intake: former substance use type: does not use caffeine: Yes what type of physical activity do you participate in: walking seatbelt use: always do you feel safe at home: Yes additional social history: 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 ROS ROS ED Constitutional Constitutional ED: Denies chills, fever(s), subjective or sweats Musculoskeletal Musculoskeletal: Denies arthralgias or myalgias Integumentary Reports abscess and rash Hematologic/Lymphatic Hematologic/Lymphatic: Denies easy bleeding or easy bruising EXAM Physical Exam Const Vital Signs: 08/01/23 10:02 Temperature 97 F L Temperature Source Temporal Pulse Rate 81 Respiratory Rate 14 Blood Pressure 160/96 H Blood Pressure Mean 117 Pulse Ox 97 Oxygen Delivery Method Room Air Positive well nourished and well developed General Appearance ED: well developed and NAD HEENT Reports moist mucous membranes normocephalic and atraumatic Eyes PERRL Eyes Narrative: Extract muscles intact. Sclera is anicteric. Neck full ROM Resp normal respiratory effort, no retractions and clear to auscultation bilaterally Cardio regular rate, regular rhythm, S1 normal heart sound, S2 normal heart sound and no murmurs Extremity full ROM; Negative for normal to inspection Extremity Narrative: Patient has a wound that has healed near the knee. There is a small opening with purulent drainage noted medial mid left calf region. There is fluctuance around the area. There is also mild induration with mild erythema. There is slight warmth compared to the uninvolved area. There is no lymphangitis. There is no popliteal lymphadenopathy. PT pulses palpable. Neuro oriented x3, CN's II-XII intact bilaterally and moves all extremities Sensorium / Orientation: alert Psych mental status grossly normal Skin Skin Narrative: Documented under the extremity portion of the medical record MDM MDM MDM Narrative Medical decision making narrative: Patient has an abscess. The wound will not heal until the area is open. Patient was informed this needs to be done. Since there appears to be surrounding cellulitis and a wound culture from 521 that reveals MS SSA appropriate treatment will be cephalexin. Will obtain wound culture since this was initially due to a dog bite. When also could consider treating with Augmentin which would cover MSSA and Eikenella which is common with dog bites. Procedures Other Procedures Procedure(s): I&D of abscess. Patient was prepped draped sterile manner. The area was anesthetized with 1% lidocaine without epinephrine. Total of 7 cc was infiltrated. Incision was made with a 10 blade. Blunt dissection was undertaken to the other bite landaverde that have healed over. There is approximately 2 to 3 cc of purulent material. Cavity was irrigated with 200 cc of saline. 1 inch iodoform gauze was placed as a wick. Nurse will dress the wound. Patient was changed to Augmentin since she does have surrounding cellulitis. 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 Discharge Plan Triage Chief Complaint: Wound ED Provider: Luis Fernando Gaxiola Dx/Rx/DC Orders Clinical Impression: Cellulitis and abscess of left leg, Infected dog bite of lower leg Instructions: ED Abscess Incision And Drainage Prescriptions: New amoxicillin-pot clavulanate 875-125 mg tablet 875 mg PO Q12H Qty: 14 0RF No Action estradiol 0.05 mg/24 hr patch weekly 1 patch transdermal QWEEK Qty: 12 4RF doxycycline monohydrate 100 mg capsule 100 mg PO BID Qty: 20 0RF gabapentin 100 mg capsule See Rx Instructions .ROUTE .COMPLEX Qty: 30 8RF Dose Instruction: TAKE 1 CAPSULE DAILY NEEDED FOR BURNING PAIN Rx Instructions: TAKE 1 CAPSULE DAILY NEEDED FOR BURNING PAIN Primary Care Provider: Alexander King Referrals: Alexander King MD [Primary Care Provider] - 3-5 Days if not improving Activity Restrictions/Additional Instructions: 1. Keep wound clean and dry for 72 hours, thereafter keep area clean until wound closes off 2. Change dressing twice a day 3. Take antibiotics until gone 4. Remove the wick in 72 hours Print Language: Niuean Disposition Disposition: Home, Self Care
[2023-08-01] MEDS: Lidocaine 1% (20 ml mdv) 20 ML Vial INFILT (10:30)
[2023-08-01 11:09] VITALS: BP 145/97; PULSE 80; RESP 16; TEMP 36.8; O2SAT 98
== END 2023-08-01 11:11 | disposition home or self-care (01) ==
PROVIDERS: Emergency Provider Emergency Medicine; PCP Family Medicine; Visit Provider Emergency Medicine
DX: L03.116 Cellulitis of left lower limb (principal); L02.416 Cutaneous abscess of left lower limb
CPT/HCPCS: 10060; 99282

== ENCOUNTER 2023-08-08 07:04 | Outpatient (RCR) | payer OTHER, SELFPAY ==
[2023-08-08 10:06] VITALS: BP 127/80; PULSE 76; RESP 18; TEMP 36.1; BMI 29.0
--- NOTE | 2023-08-08 11:08 | PCM.WC.HP ---
History of Present Illness Date of Service: 08/08/23 Chief Complaint: Dog bite wound?left medial calf History of Wound: This is a 58-year-old female who sustained a dog bite to her left medial calf approximately 6 weeks ago. She was subsequently seen and evaluated at the urgent care center on July 29, 2023, where it was noted that the dog bite wound had failed to heal appropriately, and was involved with erythema and swelling, consistent with cellulitis. A wound culture was obtained, and a prescription was provided for doxycycline orally. Three days later, on August 01, 2023, the patient presented to the [facility] Emergency Department for further evaluation and treatment. At that time, fluctuance, erythema, and induration were noted, thought to be indicative of an abscess. At that time, lymphangitis and lymphadenopathy were not noted. An abscess was drained, and the patient was placed on Augmentin 875 mg p.o. every 12 hours, to be taken for 7 days. Thereafter, the patient's primary care physician indicated his preference for the patient to continue with doxycycline, and the patient was advised to discontinue Augmentin. At the patient's initial evaluation at this facility, the patient remains on doxycycline orally. She denies fever sweats or chills. She has been using Ammy-Hex to cleanse the wound. The results of the wound cultures, obtained on July 29, 2023, indicate the isolation of Staphylococcus aureus, which is sensitive to doxycycline, as well as multiple other oral agents. The patient is active and functional. She participates in [employer] for exercise. She is of relatively normal body habitus. [facility] Medical History (Updated 08/08/23 @ 11:[address] Demetrio Grant MD) Dog bite of calf Cellulitis of left lower leg Burning mouth syndrome Multinodular goiter Arthritis Symptomatic menopausal or female climacteric states Rosacea Osteoarthritis of both knees Lump of breast Disorder of left rotator cuff Candidal vulvovaginitis Home Medications ?Medication ?Instructions ?Recorded ?Last Taken ?Type estradiol 0.05 mg/24 hr weekly 1 patch transdermal QWEEK #12 ea 07/08/22 07/27/23 Rx transdermal patch gabapentin 100 mg capsule See Rx Instructions .Route 12/16/22 07/31/23 Rx .COMPLEX #30 caps doxycycline monohydrate 100 mg 100 mg PO BID #20 caps 07/29/23 08/01/23 Rx capsule amoxicillin 875 mg-potassium 875 mg PO Q12H #14 TABLETS 08/01/23 Unknown Rx clavulanate 125 mg tablet flurbiprofen 100 mg tablet 100 mg PO TID 08/08/23 Unknown History ivermectin 1 % topical cream applic topical 08/08/23 Unknown History (Soolantra) Allergy/AdvReac Type Severity Reaction Status Date / Time insect venom (yellow jacket) Allergy Severe Swelling Verified 08/08/23 10:25 Sulfa (Sulfonamide Allergy Intermediate Hives Verified 08/08/23 10:25 Antibiotics) Family History Mother Diabetes Alzheimer's dementia Father Heart disease Diabetes Grandmother Diabetes COPD (chronic obstructive pulmonary disease) Breast cancer Colon cancer Aunt Breast cancer Brother Diabetes Grandfather CVA (cerebral vascular accident) Brother Kidney malignant neoplasm Other Hypertension Surgical History history of thyroid biopsy (~10/20/19) dental laser surgery History of total abdominal hysterectomy History of bilateral ligation of fallopian tubes H/O colonoscopy Social History Smoking Status: Never smoker Electronic Cigarette Use: not used second hand exposure: No alcohol intake: former substance use type: does not use caffeine: Yes what type of physical activity do you participate in: walking seatbelt use: always do you feel safe at home: Yes additional social history: 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 General Appearance: cooperative, comfortable, well kempt and well developed Orientation / Consciousness: awake, oriented to person, oriented to place and oriented to time Exam Limitations: no limitations HEENT normocephalic, head/scalp atraumatic, hearing grossly normal bilaterally and external ears normal Head and Scalp: normal to inspection, normocephalic and atraumatic Face and Sinus: normal facial exam Nose: external nose normal External Ear: external ears normal Mouth: lips normal Eyes PERRL and EOMs intact bilaterally General Eye: normal appearance of both eyes Neck full ROM Resp normal respiratory effort, normal air movement, no retractions and no use of accessory muscles Effort and Inspection: able to speak in complete sentences Extremity no calf tenderness General Extremity: Negative for clubbing or cyanosis Skin Wound Narrative: A dog bite wound is noted on the patient's left medial calf. Dimensions are documented elsewhere. Of note, there is some depth to the wound, which tunnels slightly anteriorly to a depth of 1.6 cm. The depths of the wound appears pink and healthy, with evidence of active granulation tissue. There is little or no surrounding erythema. There is no drainage or odor. There is no obvious sign of infection or cellulitis. The distal left lower extremity appears warm and well-perfused. Pedal pulses are palpable. Neuro oriented x3, CN's II-XII intact bilaterally, moves all extremities and no focal motor deficits Sensorium / Orientation: awake, alert, oriented to person, oriented to place and oriented to time Psych Appearance: grossly normal and appropriate Attitude: calm Activity / Motor Behavior: appropriate eye contact Speech: normal speech Mood & Affect: euthymic mood Thought Process: normal thought process Thought Content: normal thought content Attention / Concentration: attention grossly intact Debridement Note Debridement Note Wound debrided: Dog bite wound-left medial calf No debridement was completed: No debridement was completed today Post-Debridement Measurements and Additional Note: Post-Debridement Measurements/Treatment - Nurse 1 - General Ulcer Assessment Start: 08/08/23 10:05 Freq: Status: Active Protocol: SWATI.LOWEXT Activity Type Activity Date Activity User E-sign Co-sign Detail Recorded Client Recorded Date Recorded By Document 08/08/23 10:06 wound center 08/08/23 10:23 08/08/23 10:06 - Today's Visit Information Type of service Initial Visit Arrival Mode Ambulatory Patient Identification Verified (Name & Yes ) Height and Weight Height 5 ft 7 in Weight 185 lb Weight in Pounds 185.0 lbs Body Mass Index (BMI) 29.0 BMI Classification Overweight BSA - Gregor 1.96 Vital Signs Temperature (97.8 F-99.1 F) 96.9 F L Temperature Source Temporal Pulse Rate (60-100) 76 Pulse Location Monitor Respiratory Rate (12-18) 18 Respiratory rate source Observation Oxygen Delivery Method Room Air Blood Pressure (90/60-120/80) 127/80 H Blood Pressure Mean 95 Source Monitor Position Semi-Fowlers Blood Pressure Location Right Arm History Since Last Visit- (Skip if this is Patient's initial visit) Left Footwear Regular Shoe Right Footwear Regular Shoe Pain Scale: 0-10 Numeric Is Patient Pain Free? Yes Communication Assessment Preferred language Guatemalan Agronomy Location Manager Required No Able to Read Yes Able to Write Yes Communication Tools None Caregiver Communication Skills No Impairment Impairment Right Hearing Abillity Normal Left Hearing Abillity Normal Visual Assistive Devices None Teaching Assessment Preferences Verbal,Written, Demonstration Barriers to Learning None Readiness To Learn Excellent Willingness to Engage in Self Management High Activies Readiness to Engage in Self Management High Activities Anxiety Level Calm Cooperation Cooperative Perception Coherent Interest in Health Problem Asks Questions Education Importance Acknowledges Need Does Patient Smoke tobacco or other Yes substances Smoking Status Never smoker Is Patient Diabetic No Functional Assessment Recent Decline in Ability to Perform Denies Any Declines Culture/Jehovah'S Witness/Occupational Therapy Assistant Cultural/Jehovah'S Witness Needs that may affect No Treatment Plan Would you allow our hospital automobile engine assembler to No meet you for the purpose of spiritual/ emotional support? Occupational Therapy Assistant to contact place of denominational No WC - Nurse 1 - General Ulcer Measurement Start: 08/08/23 10:05 Freq: Status: Active Protocol: Activity Type Activity Date Activity User E-sign Co-sign Detail Recorded Client Recorded Date Recorded By Document 08/08/23 10:06 wound center 08/08/23 10:23 08/08/23 10:06 Wound Center Nurse 1 #1 LT MED LE -Current Size (cm) - Length 0.7 -Current Size (cm) - Width 2 -Current Size (cm) - Depth 0.3 -Total Square Cm 1.4 -Date of Last Picture (Recall this 08/08/23 field) -Exudate Amt Small -Exudate Type Serosanguineous -Wound Margin Distinct, Outline Attached -Granulation Amt Medium (34-66%) -Granulation Quality Bandon -Necrosis Amt Medium (34-66%) -Necrotic Tissue Type Adherent Slough -Texture (Azra-wound Skin Appearance) Assessed, Localized Edema -Moisture (Azra-wound Skin Appearance) Assessed -Color (Azra-wound Skin Appearance) Assessed, Erythema -Temperature (Azra-wound Skin No Abnormality Appearance) (Pt Warm) -Tenderness on Palpation (Azra-wound No Skin Appearance) -Ulcer Cleansing Rinsed/ Irrigated with Saline -Foul Odor after Cleansing No -Anesthetic Used 5% Lidocaine Gel -Wound Comment(s) PT CHANGES DRSG 2XS DAILY Left Calf (cm) 41.5 Left Ankle (cm) 21.5 - Nurse 2 - General Ulcer CM Notes Start: 08/08/23 10:05 Freq: Status: Active Protocol: Activity Type Activity Date Activity User E-sign Co-sign Detail Recorded Client Recorded Date Recorded By Document 08/08/23 10:32 [facility] 08/08/23 10:40 08/08/23 10:32 Wound Center Nurse 2 #1 LT MED LE -Time 10:32 -Correct Patient Yes -Correct Side, Site, Position Yes -Wound/Ulcer Outcome Not Healed -Wound Comment(s) wound is 1.6 deep Pain Scale: 0-10 Numeric Is Patient Pain Free? Yes - Nurse 3 - General Ulcer D/C NN Start: 08/08/23 10:05 Freq: Status: Active Protocol: Activity Type Activity Date Activity User E-sign Co-sign Detail Recorded Client Recorded Date Recorded By Document 08/08/23 10:58 [facility] 08/08/23 10:59 08/08/23 10:58 Wound Care Center Nurse 3 #1 LT MED LE -Ulcer Cleansing Not Cleansed -Primary Dressing Applied Nugauze, Iodoform 1/4in -Primary Dressing Covered/Secured with Dry Gauze, Secured with Tape -Nugauze, Iodoform 1/4in 2 Left -Compression Wrap Ben Wrap Pain Scale: 0-10 Numeric Is Patient Pain Free? Yes - Visit Discharge Discharge Condition Stable Ambulatory Status Ambulatory Transportation Private Auto Clinical Summary of Care Provided Yes Assessment/Plan Assessment/Plan (1) Dog bite of calf: CODE(S): S81.859A - Open bite, unspecified lower leg, initial encounter; W54.0XXA - Bitten by dog, initial encounter QUALIFIERS: Encounter type: initial encounter Laterality: left Qualified Code(s): S81.852A - Open bite, left lower leg, initial encounter; W54.0XXA - Bitten by dog, initial encounter (2) Infected dog bite of lower leg: CODE(S): S81.859A - Open bite, unspecified lower leg, initial encounter; L08.9 - Local infection of the skin and subcutaneous tissue, unspecified; W54.0XXA - Bitten by dog, initial encounter QUALIFIERS: Encounter type: initial encounter Laterality: left Qualified Code(s): S81.852A - Open bite, left lower leg, initial encounter; L08.9 - Local infection of the skin and subcutaneous tissue, unspecified; W54.0XXA - Bitten by dog, initial encounter (3) Cellulitis and abscess of left leg: CODE(S): L03.116 - Cellulitis of left lower limb; L02.416 - Cutaneous abscess of left lower limb (4) Wound abscess: (5) Arthritis: CODE(S): M19.90 - Unspecified osteoarthritis, unspecified site (6) Depression with anxiety: CODE(S): F41.8 - Other specified anxiety disorders (7) Intracranial meningioma: CODE(S): D32.0 - Benign neoplasm of cerebral meninges (8) Burning mouth syndrome: CODE(S): K14.6 - Glossodynia (9) History of bilateral ligation of fallopian tubes: CODE(S): Z98.51 - Tubal ligation status (10) History of total abdominal hysterectomy: CODE(S): Z90.710 - Acquired absence of both cervix and uterus (11) history of thyroid biopsy: (12) Disorder of left rotator cuff: CODE(S): M67.912 - Unspecified disorder of synovium and tendon, left shoulder (13) Multinodular goiter: CODE(S): E04.2 - Nontoxic multinodular goiter (14) Osteoarthritis of both knees: CODE(S): M17.0 - Bilateral primary osteoarthritis of knee (15) Rosacea: CODE(S): L71.9 - Rosacea, unspecified PLAN: Plan This is a 58-year-old generally healthy and active female who sustained a dog bite to her left medial calf approximately 6 weeks ago. The dog bite wound has failed to heal appropriately, and had developed an abscess which required incision and drainage, performed in the [facility] Emergency Department on August 01, 2023. She remains on doxycycline orally, and has been advised to complete that course. There is no obvious indication of infection or cellulitis at this time. We are to implement the use of packing of the dog bite wound using moistened 1/4 inch Nu Gauze on a daily basis. The patient has been instructed in the appropriate means of packing. She has been advised to seek medical attention should the wound site develop signs of infection. She has been advised to elevate her lower extremities is much as possible, and to wear compression stockings to minimize the risk of lower extremity swelling. She is scheduled to drive to [place] with her this coming week on dizziness, and has been advised of the hazards of prolonged idle sitting. She is to return for reevaluation in approximately 10 days. Total time: 50 minutes
--- NOTE | 2023-08-12 08:42 | WC ---
08/08/2023 (I) LEFT MEDIAL LE
== END 2023-08-08 23:59 | disposition home or self-care (01) ==
LOC: WC 07:04
PROVIDERS: PCP Family Medicine; Referring Provider Physician Assistant; Visit Provider Surgery
DX: S81.852A Open bite, left lower leg, initial encounter (principal); D32.0 Benign neoplasm of cerebral meninges; L03.116 Cellulitis of left lower limb; W54.0XXA Bitten by dog, initial encounter; E04.2 Nontoxic multinodular goiter; L02.416 Cutaneous abscess of left lower limb; M17.0 Bilateral primary osteoarthritis of knee; L71.9 Rosacea, unspecified; Z79.899 Other long term (current) drug therapy
CPT/HCPCS: 99213; G0463

== ENCOUNTER 2023-09-02 14:15 | Outpatient (RCR) | payer OTHER, SELFPAY ==
[2023-08-09 01:27] VITALS: BP 127/80; PULSE 76; RESP 18; TEMP 36.1; BMI 29.0
[2023-08-19 13:53] VITALS: BP 145/90; PULSE 86; RESP 18; TEMP 36.7; BMI 29.0
--- NOTE | 2023-08-19 17:52 | PCM.WC.HP ---
History of Present Illness Date of Service: 08/19/23 Chief Complaint: Dog bite wound?left medial calf History of Wound: This is a 58-year-old female who sustained a dog bite to her left medial calf approximately 6 weeks ago. She was subsequently seen and evaluated at the urgent care center on July 29, 2023, where it was noted that the dog bite wound had failed to heal appropriately, and was involved with erythema and swelling, consistent with cellulitis. A wound culture was obtained, and a prescription was provided for doxycycline orally. Three days later, on August 01, 2023, the patient presented to the [facility] Emergency Department for further evaluation and treatment. At that time, fluctuance, erythema, and induration were noted, thought to be indicative of an abscess. At that time, lymphangitis and lymphadenopathy were not noted. An abscess was drained, and the patient was placed on Augmentin 875 mg p.o. every 12 hours, to be taken for 7 days. Thereafter, the patient's primary care physician indicated his preference for the patient to continue with doxycycline, and the patient was advised to discontinue Augmentin. She completed her course of doxycycline. She had been using Ammy-Hex to cleanse the wound. The results of the wound cultures, obtained on July 29, 2023, indicated the presence of Staphylococcus aureus, which was sensitive to doxycycline, as well as multiple other oral agents. The patient is active and functional. She participates in [employer] for exercise. She is of relatively normal body habitus. [facility] Medical History (Updated 08/20/23 @ 12:[address] Demetrio Grant MD) Open wound of left lower leg Dog bite of calf Cellulitis of left lower leg Burning mouth syndrome Multinodular goiter Arthritis Symptomatic menopausal or female climacteric states Rosacea Osteoarthritis of both knees Lump of breast Disorder of left rotator cuff Candidal vulvovaginitis Home Medications ?Medication ?Instructions ?Recorded ?Last Taken ?Type estradiol 0.05 mg/24 hr weekly 1 patch transdermal QWEEK #12 ea 07/08/22 07/27/23 Rx transdermal patch gabapentin 100 mg capsule See Rx Instructions .Route 12/16/22 07/31/23 Rx .COMPLEX #30 caps doxycycline monohydrate 100 mg 100 mg PO BID #20 caps 07/29/23 08/01/23 Rx capsule amoxicillin 875 mg-potassium 875 mg PO Q12H #14 TABLETS 08/01/23 Unknown Rx clavulanate 125 mg tablet flurbiprofen 100 mg tablet 100 mg PO TID 08/08/23 Unknown History ivermectin 1 % topical cream applic topical 08/08/23 Unknown History (Soolantra) Allergy/AdvReac Type Severity Reaction Status Date / Time insect venom (yellow jacket) Allergy Severe Swelling Verified 08/08/23 10:25 Sulfa (Sulfonamide Allergy Intermediate Hives Verified 08/08/23 10:25 Antibiotics) Family History Mother Diabetes Alzheimer's dementia Father Heart disease Diabetes Grandmother Diabetes COPD (chronic obstructive pulmonary disease) Breast cancer Colon cancer Aunt Breast cancer Brother Diabetes Grandfather CVA (cerebral vascular accident) Brother Kidney malignant neoplasm Other Hypertension Surgical History history of thyroid biopsy (~10/20/19) dental laser surgery History of total abdominal hysterectomy History of bilateral ligation of fallopian tubes H/O colonoscopy Social History Smoking Status: Never smoker Electronic Cigarette Use: not used second hand exposure: No alcohol intake: former substance use type: does not use caffeine: Yes what type of physical activity do you participate in: walking seatbelt use: always do you feel safe at home: Yes additional social history: 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 General Appearance: cooperative, comfortable, well kempt and well developed Orientation / Consciousness: awake, oriented to person, oriented to place and oriented to time Exam Limitations: no limitations HEENT normocephalic, head/scalp atraumatic, hearing grossly normal bilaterally and external ears normal Head and Scalp: normal to inspection, normocephalic and atraumatic Face and Sinus: normal facial exam Nose: external nose normal External Ear: external ears normal Mouth: lips normal Eyes PERRL and EOMs intact bilaterally General Eye: normal appearance of both eyes Neck full ROM Resp normal respiratory effort, normal air movement, no retractions and no use of accessory muscles Effort and Inspection: able to speak in complete sentences Extremity no calf tenderness General Extremity: Negative for clubbing or cyanosis Skin Wound Narrative: A dog bite wound is noted on the patient's left medial calf. Dimensions are documented elsewhere. Of note, there is some depth to the wound, which tunnels slightly anteriorly. The depth has changed very little since the patient's prior visit. The depths of the wound appear pink and healthy, with evidence of active granulation tissue. There is no surrounding erythema. There is no drainage or odor. There is no obvious sign of infection or cellulitis. The distal left lower extremity appears warm and well-perfused. Pedal pulses are palpable. Slight swelling is noted in the patient's left lower extremity. Neuro oriented x3, CN's II-XII intact bilaterally, moves all extremities and no focal motor deficits Sensorium / Orientation: awake, alert, oriented to person, oriented to place and oriented to time Psych Appearance: grossly normal and appropriate Attitude: calm Activity / Motor Behavior: appropriate eye contact Speech: normal speech Mood & Affect: euthymic mood Thought Process: normal thought process Thought Content: normal thought content Attention / Concentration: attention grossly intact Debridement Note Debridement Note Wound debrided: Dog bite wound-left medial calf Laterality: Left Type of Debridement: Excisional debridement Anesthesia Used: 5% Lidocaine Gel Depth: Down to and including healthy tissue and in the subcutaneous layer Percentage of wound debrided: 100 Instrument Used: 3mm curette Severity: Fat Layer Exposed Amount of bleeding with debridement: Mild Bleeding Controlled with: Compression and gauze Patient tolerated procedure: Patient tolerated procedure well Post-Debridement Measurements and Additional Note: Post-Debridement Measurements/Treatment - Nurse 1 - General Ulcer Assessment Start: 08/19/23 13:53 Freq: Status: Active Protocol: CHILO Activity Type Activity Date Activity User E-sign Co-sign Detail Recorded Client Recorded Date Recorded By Document 08/19/23 13:53 RB wound 08/19/23 13:57 RB 08/19/23 13:53 - Today's Visit Information Type of service Follow-up Visit (Physician/COMMAND AND CONTROL OFFICER ) Arrival Mode Ambulatory Transfer Assistance None Patient Identification Verified (Name & Yes ) Patient Requires Transmission-Based No Precautions Height and Weight Body Mass Index (BMI) 29.0 BMI Classification Overweight Vital Signs Temperature (97.8 F-99.1 F) 98.1 F Temperature Source Temporal Pulse Rate (60-100) 86 Pulse Location Monitor Respiratory Rate (12-18) 18 Respiratory rate source Observation Blood Pressure (90/60-120/80) 145/90 H Blood Pressure Mean 108 Source Monitor Position Semi-Fowlers Blood Pressure Location Left Arm History Since Last Visit- (Skip if this is Patient's initial visit) Have you changed medications since your No last visit? Any new allergies or adverse reactions No Had a fall/change in ADL's that may No increase risk of falls Signs or symptoms of abuse and/or No neglect since last visit Have you been in the hospital since your No last visit? Has dressing in place as prescribed Yes Has compression in place as prescribed Yes Has offloadiing in place as prescribed No Experienced any changes in pain level or No management Pain Scale: 0-10 Numeric Is Patient Pain Free? Yes WC - Nurse 1 - General Ulcer Measurement Start: 08/19/23 13:53 Freq: Status: Active Protocol: Activity Type Activity Date Activity User E-sign Co-sign Detail Recorded Client Recorded Date Recorded By Document 08/19/23 13:53 RB wound 08/19/23 13:57 RB 08/19/23 13:53 Wound Center Nurse 1 #1 LT MED LE -Combined with other wound No -Current Size (cm) - Length 0.3 -Current Size (cm) - Width 0.9 -Current Size (cm) - Depth 1.1 -Total Square Cm 0.27 -Tunneling No -Undermining/Tunneling No -Circular Undermining No -Exudate Amt Medium -Exudate Type Serosanguineous -Wound Margin Thickened & Rolled Under -Granulation Amt Medium (34-66%) -Granulation Quality [place] -Slough/Fibrin Yes -Necrosis Amt Medium (34-66%) -Necrotic Tissue Type Adherent Slough -Structure Exposed N/A -Texture (Azra-wound Skin Appearance) Assessed, Scarring -Moisture (Azra-wound Skin Appearance) Assessed -Color (Azra-wound Skin Appearance) Assessed -Temperature (Azra-wound Skin No Abnormality Appearance) (Pt Warm) -Tenderness on Palpation (Azra-wound No Skin Appearance) -Ulcer Cleansing Wound Cleanser -Foul Odor after Cleansing No -Anesthetic Used 5% Lidocaine Gel Lower Limb Edema Present Yes Left Calf (cm) 43 Left Ankle (cm) 24.8 WC - Nurse 2 - General Ulcer CM Notes Start: 08/19/23 13:53 Freq: Status: Active Protocol: Activity Type Activity Date Activity User E-sign Co-sign Detail Recorded Client Recorded Date Recorded By Document 08/19/23 14:05 [id number] 08/19/23 14:08 VIC 08/19/23 14:05 Wound Center Nurse 2 #1 LT MED LE -Time 14:06 -Correct Patient Yes -Correct Side, Site, Position Yes -Correct Procedure Yes -Procedure Performed Yes -Type of Procedure Debridement -Clinical Debridement Subcutaneous -Tissue Removed Subcutaneous -Post Debridement (cm) - Length 0.3 -Post Debridement (cm) - Width 1.0 -Post Debridement (cm) - Depth 1.7 -Total Square (Post) (cm) 0.30 -Area of Debridement (cm) - Length 0.3 -Area of Debridement (cm) - Width 1.0 -Total Square (Area) (cm) 0.30 -Tunneling No -Undermining/Tunneling No -Circular Undermining No -Wound/Ulcer Outcome Not Healed -Ulcer Cleansing Rinsed/ Irrigated with Saline -Foul Odor after Cleansing No -Bioengineered Tissue No -Bleeding Controlled with Pressure -Treatment Response Procedure Tolerated Well -Offloading No -Debridement - Subq, 1st 20sq cm Yes Pain Scale: 0-10 Numeric Is Patient Pain Free? Yes Charges/Coding Procedures Integumentary [id number]: [id number] Sara subq tissue 20 sq cm/< Assessment/Plan Assessment/Plan (1) Dog bite of calf: CODE(S): S81.859A - Open bite, unspecified lower leg, initial encounter; W54.0XXA - Bitten by dog, initial encounter QUALIFIERS: Encounter type: subsequent encounter Laterality: left Qualified Code(s): S81.852D - Open bite, left lower leg, subsequent encounter; W54.0XXD - Bitten by dog, subsequent encounter (2) Open wound of left lower leg: CODE(S): S81.802A - Unspecified open wound, left lower leg, initial encounter QUALIFIERS: Encounter type: subsequent encounter Qualified Code(s): S81.802D - Unspecified open wound, left lower leg, subsequent encounter (3) Arthritis: CODE(S): M19.90 - Unspecified osteoarthritis, unspecified site (4) Depression with anxiety: CODE(S): F41.8 - Other specified anxiety disorders (5) Intracranial meningioma: CODE(S): D32.0 - Benign neoplasm of cerebral meninges (6) Burning mouth syndrome: CODE(S): K14.6 - Glossodynia (7) History of bilateral ligation of fallopian tubes: CODE(S): Z98.51 - Tubal ligation status (8) History of total abdominal hysterectomy: CODE(S): Z90.710 - Acquired absence of both cervix and uterus (9) history of thyroid biopsy: (10) Disorder of left rotator cuff: CODE(S): M67.912 - Unspecified disorder of synovium and tendon, left shoulder (11) Multinodular goiter: CODE(S): E04.2 - Nontoxic multinodular goiter (12) Osteoarthritis of both knees: CODE(S): M17.0 - Bilateral primary osteoarthritis of knee (13) Rosacea: CODE(S): L71.9 - Rosacea, unspecified PLAN: Plan This is a 58-year-old generally healthy and active female who sustained a dog bite to her left medial calf approximately 6 weeks prior to presentation. The dog bite wound failed to heal appropriately, and had developed an abscess which required incision and drainage, performed in the [facility] Emergency Department on August 01, 2023. She has completed a course of doxycycline orally. There is no obvious indication of infection or cellulitis at this time. We are to continue the use of packing of the dog bite wound using moistened 1/4 inch Nu Gauze on a daily basis. The patient has been instructed in the appropriate means of packing. She has been advised to elevate her lower extremities as much as possible to minimize swelling. In addition, she is to be fitted with double layer Tubigrip's, which she is to wear on a daily basis. She has recently returned from a trip to [place], traveling by automobile. It appears as though the long periods of idle sitting have resulted in mild swelling of the patient's lower extremities. She is to return for reevaluation in approximately 1 week. Total time: 25 minutes
[2023-08-26 13:59] VITALS: BP 141/86; PULSE 78; RESP 16; BMI 29.0
--- NOTE | 2023-08-26 15:36 | PCM.WC.HP ---
History of Present Illness Date of Service: 08/26/23 Chief Complaint: Dog bite wound?left medial calf History of Wound: This is a 58-year-old female who sustained a dog bite to her left medial calf approximately 6 weeks ago. She was subsequently seen and evaluated at the urgent care center on July 29, 2023, where it was noted that the dog bite wound had failed to heal appropriately, and was involved with erythema and swelling, consistent with cellulitis. A wound culture was obtained, and a prescription was provided for doxycycline orally. Three days later, on August 01, 2023, the patient presented to the [facility] Emergency Department for further evaluation and treatment. At that time, fluctuance, erythema, and induration were noted, thought to be indicative of an abscess. At that time, lymphangitis and lymphadenopathy were not noted. An abscess was drained, and the patient was placed on Augmentin 875 mg p.o. every 12 hours, to be taken for 7 days. Thereafter, the patient's primary care physician indicated his preference for the patient to continue with doxycycline, and the patient was advised to discontinue Augmentin. She completed her course of doxycycline. She had been using Ammy-Hex to cleanse the wound. The results of the wound cultures, obtained on July 29, 2023, indicated the presence of Staphylococcus aureus, which was sensitive to doxycycline, as well as multiple other oral agents. The patient is active and functional. She participates in [employer] for exercise. She is of relatively normal body habitus. [facility] Medical History Open wound of left lower leg Dog bite of calf Cellulitis of left lower leg Burning mouth syndrome Multinodular goiter Arthritis Symptomatic menopausal or female climacteric states Rosacea Osteoarthritis of both knees Lump of breast Disorder of left rotator cuff Candidal vulvovaginitis Home Medications ?Medication ?Instructions ?Recorded ?Last Taken ?Type estradiol 0.05 mg/24 hr weekly 1 patch transdermal QWEEK #12 ea 07/08/22 07/27/23 Rx transdermal patch gabapentin 100 mg capsule See Rx Instructions .Route 12/16/22 07/31/23 Rx .COMPLEX #30 caps doxycycline monohydrate 100 mg 100 mg PO BID #20 caps 07/29/23 08/01/23 Rx capsule amoxicillin 875 mg-potassium 875 mg PO Q12H #14 TABLETS 08/01/23 Unknown Rx clavulanate 125 mg tablet flurbiprofen 100 mg tablet 100 mg PO TID 08/08/23 Unknown History ivermectin 1 % topical cream applic topical 08/08/23 Unknown History (Soolantra) Allergy/AdvReac Type Severity Reaction Status Date / Time insect venom (yellow jacket) Allergy Severe Swelling Verified 08/08/23 10:25 Sulfa (Sulfonamide Allergy Intermediate Hives Verified 08/08/23 10:25 Antibiotics) Family History Mother Diabetes Alzheimer's dementia Father Heart disease Diabetes Grandmother Diabetes COPD (chronic obstructive pulmonary disease) Breast cancer Colon cancer Aunt Breast cancer Brother Diabetes Grandfather CVA (cerebral vascular accident) Brother Kidney malignant neoplasm Other Hypertension Surgical History history of thyroid biopsy (~10/20/19) dental laser surgery History of total abdominal hysterectomy History of bilateral ligation of fallopian tubes H/O colonoscopy Social History Smoking Status: Never smoker Electronic Cigarette Use: not used second hand exposure: No alcohol intake: former substance use type: does not use caffeine: Yes what type of physical activity do you participate in: walking seatbelt use: always do you feel safe at home: Yes additional social history: 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 General Appearance: cooperative, comfortable, well kempt and well developed Orientation / Consciousness: awake, oriented to person, oriented to place and oriented to time Exam Limitations: no limitations HEENT normocephalic, head/scalp atraumatic, hearing grossly normal bilaterally and external ears normal Head and Scalp: normal to inspection, normocephalic and atraumatic Face and Sinus: normal facial exam Nose: external nose normal External Ear: external ears normal Mouth: lips normal Eyes PERRL and EOMs intact bilaterally General Eye: normal appearance of both eyes Neck full ROM Resp normal respiratory effort, normal air movement, no retractions and no use of accessory muscles Effort and Inspection: able to speak in complete sentences Extremity no calf tenderness General Extremity: Negative for clubbing or cyanosis Skin Wound Narrative: A dog bite wound is noted on the patient's left medial calf. Dimensions are documented elsewhere. Of note, there is some depth to the wound, which tunnels slightly anteriorly. The depth has diminished slightly, and measures approximately 7 mm. The wound appears pink and healthy, with evidence of active granulation tissue. There is no surrounding erythema. There is no drainage or odor. There is no obvious sign of infection or cellulitis. The distal left lower extremity appears warm and well-perfused. Pedal pulses are palpable. There is no significant swelling or edema. Neuro oriented x3, CN's II-XII intact bilaterally, moves all extremities and no focal motor deficits Sensorium / Orientation: awake, alert, oriented to person, oriented to place and oriented to time Psych Appearance: grossly normal and appropriate Attitude: calm Activity / Motor Behavior: appropriate eye contact Speech: normal speech Mood & Affect: euthymic mood Thought Process: normal thought process Thought Content: normal thought content Attention / Concentration: attention grossly intact Debridement Note Debridement Note Wound debrided: Dog bite wound-left medial calf Laterality: Left Type of Debridement: Excisional debridement Anesthesia Used: 5% Lidocaine Gel Depth: Down to and including healthy tissue and in the subcutaneous layer Percentage of wound debrided: 100 Instrument Used: - (1 mm curette) Tissue Removed: Bioburden Severity: Fat Layer Exposed Amount of bleeding with debridement: Mild Bleeding Controlled with: Compression and gauze Patient tolerated procedure: Patient tolerated procedure well Post-Debridement Measurements and Additional Note: Post-Debridement Measurements/Treatment SWATI - Nurse 1 - General Ulcer Assessment Start: 08/19/23 13:53 Freq: Status: Active Protocol: CHILO Activity Type Activity Date Activity User E-sign Co-sign Detail Recorded Client Recorded Date Recorded By Document 08/19/23 13:53 RB wound 08/19/23 13:57 RB Document 08/26/23 13:59 KW g 08/26/23 14:03 KW 08/19/23 08/26/23 13:53 13:59 WC - Today's Visit Information Type of service Follow-up Visit Follow-up Visit (Physician/STATISTICAL REPORTING ANALYST (Physician/STATISTICAL REPORTING ANALYST ) ) Arrival Mode Ambulatory Ambulatory Transfer Assistance None Patient Identification Verified (Name & Yes Yes ) Patient Requires Transmission-Based No Precautions Height and Weight Body Mass Index (BMI) 29.0 29.0 BMI Classification Overweight Overweight Vital Signs Temperature (97.8 F-99.1 F) 98.1 F Temperature Source Temporal Pulse Rate (60-100) 86 78 Pulse Location Monitor Monitor Respiratory Rate (12-18) 18 16 Respiratory rate source Observation Observation Oxygen Delivery Method Room Air Blood Pressure (90/60-120/80) 145/90 H 141/86 H Blood Pressure Mean 108 104 Source Monitor Monitor Position Semi-Fowlers Semi-Fowlers Blood Pressure Location Left Arm Left Arm History Since Last Visit- (Skip if this is Patient's initial visit) Have you changed medications since your No No last visit? Any new allergies or adverse reactions No No Had a fall/change in ADL's that may No No increase risk of falls Signs or symptoms of abuse and/or No neglect since last visit Have you been in the hospital since your No last visit? Has dressing in place as prescribed Yes Has compression in place as prescribed Yes Has offloadiing in place as prescribed No Experienced any changes in pain level or No management Pain Scale: 0-10 Numeric Is Patient Pain Free? Yes No WC - Nurse 1 - General Ulcer Measurement Start: 08/19/23 13:53 Freq: Status: Active Protocol: Activity Type Activity Date Activity User E-sign Co-sign Detail Recorded Client Recorded Date Recorded By Document 08/19/23 13:53 RB wound 08/19/23 13:57 RB Document 08/26/23 13:59 KW g 08/26/23 14:03 KW 08/19/23 08/26/23 13:53 13:59 Wound Center Nurse 1 #1 LT MED LE -Combined with other wound No -Current Size (cm) - Length 0.3 0.2 -Current Size (cm) - Width 0.9 0.3 -Current Size (cm) - Depth 1.1 0.2 -Total Square Cm 0.27 0.06 -Date of Last Picture (Recall this 08/26/23 field) -Tunneling No -Undermining/Tunneling No -Circular Undermining No -Exudate Amt Medium -Exudate Type Serosanguineous -Wound Margin Thickened & Rolled Under -Granulation Amt Medium (34-66%) -Granulation Quality [place] -Slough/Fibrin Yes -Necrosis Amt Medium (34-66%) -Necrotic Tissue Type Adherent Slough -Structure Exposed N/A -Texture (Azra-wound Skin Appearance) Assessed, Assessed Scarring -Moisture (Azra-wound Skin Appearance) Assessed Assessed -Color (Azra-wound Skin Appearance) Assessed Assessed -Temperature (Azra-wound Skin No Abnormality No Abnormality Appearance) (Pt Warm) (Pt Warm) -Tenderness on Palpation (Azra-wound No No Skin Appearance) -Ulcer Cleansing Wound Cleanser Rinsed/ Irrigated with Saline -Foul Odor after Cleansing No No -Anesthetic Used 5% Lidocaine 5% Lidocaine Gel Gel Lower Limb Edema Present Yes Point of Measurement (cm from the distal 42.8 point) Left Calf (cm) 43 Point of measurement (cm from the medial 25 instep) Left Ankle (cm) 24.8 WC - Nurse 2 - General Ulcer CM Notes Start: 08/19/23 13:53 Freq: Status: Active Protocol: Activity Type Activity Date Activity User E-sign Co-sign Detail Recorded Client Recorded Date Recorded By Document 08/19/23 14:05 [id number] 08/19/23 14:08 Document 08/26/23 14:12 DS 1 08/26/23 14:16 DS 08/19/23 08/26/23 14:05 14:12 Wound Center Nurse 2 #1 LT MED LE -Time 14:06 14:13 -Correct Patient Yes Yes -Correct Side, Site, Position Yes Yes -Correct Procedure Yes Yes -Procedure Performed Yes Yes -Type of Procedure Debridement Debridement -Clinical Debridement Subcutaneous Subcutaneous -Tissue Removed Subcutaneous Subcutaneous -Post Debridement (cm) - Length 0.3 0.3 -Post Debridement (cm) - Width 1.0 0.9 -Post Debridement (cm) - Depth 1.7 0.7 -Total Square (Post) (cm) 0.30 0.27 -Area of Debridement (cm) - Length 0.3 0.3 -Area of Debridement (cm) - Width 1.0 0.9 -Total Square (Area) (cm) 0.30 0.27 -Tunneling No No -Undermining/Tunneling No No -Circular Undermining No No -Wound/Ulcer Outcome Not Healed Not Healed -Ulcer Cleansing Rinsed/ Rinsed/ Irrigated with Irrigated with Saline Saline -Foul Odor after Cleansing No -Bioengineered Tissue No -Bleeding Controlled with Pressure Pressure -Treatment Response Procedure Procedure Tolerated Well Tolerated Well -Offloading No -Debridement - Subq, 1st 20sq cm Yes Yes Pain Scale: 0-10 Numeric Is Patient Pain Free? Yes Yes - Nurse 3 - General Ulcer D/C NN Start: 08/19/23 13:53 Freq: Status: Active Protocol: Activity Type Activity Date Activity User E-sign Co-sign Detail Recorded Client Recorded Date Recorded By Document 08/26/23 14:33 [id number] 08/26/23 14:34 08/26/23 14:33 Wound Care Center Nurse 3 #1 LT MED LE -Ulcer Cleansing Rinsed/ Irrigated with Saline -Foul Odor after Cleansing No -Primary Dressing Applied Nugauze, Plain 1/4in -Primary Dressing Covered/Secured with Dry Gauze, Secured with Tape -Nugauze, Iodoform 1/4in 1 -Nugauze, Plain 1/4in 1 Left -Tubular Bandage Double Layer -Size of Tubigrip Used Size E -Size E ($) 2 Pain Scale: 0-10 Numeric Is Patient Pain Free? Yes - Visit Discharge Discharge Condition Stable Ambulatory Status Ambulatory Transportation Private Auto Medication Reconcilliation completed & Yes provided to patient/care provider Clinical Summary of Care Provided Yes Charges/Coding Procedures Integumentary [id number]: [id number] Sara subq tissue 20 sq cm/< Assessment/Plan Assessment/Plan (1) Dog bite of calf: CODE(S): S81.859A - Open bite, unspecified lower leg, initial encounter; W54.0XXA - Bitten by dog, initial encounter QUALIFIERS: Encounter type: subsequent encounter Laterality: left Qualified Code(s): S81.852D - Open bite, left lower leg, subsequent encounter; W54.0XXD - Bitten by dog, subsequent encounter (2) Open wound of left lower leg: CODE(S): S81.802A - Unspecified open wound, left lower leg, initial encounter QUALIFIERS: Encounter type: subsequent encounter Qualified Code(s): S81.802D - Unspecified open wound, left lower leg, subsequent encounter (3) Arthritis: CODE(S): M19.90 - Unspecified osteoarthritis, unspecified site (4) Depression with anxiety: CODE(S): F41.8 - Other specified anxiety disorders (5) Intracranial meningioma: CODE(S): D32.0 - Benign neoplasm of cerebral meninges (6) Burning mouth syndrome: CODE(S): K14.6 - Glossodynia (7) History of bilateral ligation of fallopian tubes: CODE(S): Z98.51 - Tubal ligation status (8) History of total abdominal hysterectomy: CODE(S): Z90.710 - Acquired absence of both cervix and uterus (9) history of thyroid biopsy: (10) Disorder of left rotator cuff: CODE(S): M67.912 - Unspecified disorder of synovium and tendon, left shoulder (11) Multinodular goiter: CODE(S): E04.2 - Nontoxic multinodular goiter (12) Osteoarthritis of both knees: CODE(S): M17.0 - Bilateral primary osteoarthritis of knee (13) Rosacea: CODE(S): L71.9 - Rosacea, unspecified PLAN: Plan This is a 58-year-old generally healthy and active female who sustained a dog bite to her left medial calf approximately 6 weeks prior to presentation. The dog bite wound failed to heal appropriately, and had developed an abscess which required incision and drainage, performed in the [facility] Emergency Department on August 01, 2023. She has completed a course of doxycycline orally. There is no obvious indication of infection or cellulitis at this time. We are to continue the use of packing of the dog bite wound using moistened 1/4 inch Nu Gauze on a daily basis. The patient has been instructed in the appropriate means of packing. Because the wound dimensions have decreased significantly, packing of the wound has become more difficult. She has been advised to elevate her lower extremities as much as possible to minimize swelling. In addition, she is to continue wearing double layer Tubigrip's on a daily basis. She is to return for reevaluation in approximately 1 week. Total time: 24 minutes
--- NOTE | 2023-08-29 11:45 | WC ---
08/26/2023 LT MED LEG
[2023-09-02 14:42] VITALS: BP 161/97; PULSE 68; RESP 18; BMI 29.0
--- NOTE | 2023-09-02 15:16 | PCM.WC.HP ---
History of Present Illness Date of Service: 09/02/23 Chief Complaint: Dog bite wound?left medial calf History of Wound: This is a 58-year-old female who sustained a dog bite to her left medial calf approximately 6 weeks ago. She was subsequently seen and evaluated at the urgent care center on July 29, 2023, where it was noted that the dog bite wound had failed to heal appropriately, and was involved with erythema and swelling, consistent with cellulitis. A wound culture was obtained, and a prescription was provided for doxycycline orally. Three days later, on August 01, 2023, the patient presented to the [facility] Emergency Department for further evaluation and treatment. At that time, fluctuance, erythema, and induration were noted, thought to be indicative of an abscess. At that time, lymphangitis and lymphadenopathy were not noted. An abscess was drained, and the patient was placed on Augmentin 875 mg p.o. every 12 hours, to be taken for 7 days. Thereafter, the patient's primary care physician indicated his preference for the patient to continue with doxycycline, and the patient was advised to discontinue Augmentin. She completed her course of doxycycline. She had been using Ammy-Hex to cleanse the wound. The results of the wound cultures, obtained on July 29, 2023, indicated the presence of Staphylococcus aureus, which was sensitive to doxycycline, as well as multiple other oral agents. The patient is active and functional. She participates in [employer] for exercise. She is of relatively normal body habitus. [facility] Medical History Open wound of left lower leg Dog bite of calf Cellulitis of left lower leg Burning mouth syndrome Multinodular goiter Arthritis Symptomatic menopausal or female climacteric states Rosacea Osteoarthritis of both knees Lump of breast Disorder of left rotator cuff Candidal vulvovaginitis Home Medications ?Medication ?Instructions ?Recorded ?Last Taken ?Type estradiol 0.05 mg/24 hr weekly 1 patch transdermal QWEEK #12 ea 07/08/22 07/27/23 Rx transdermal patch gabapentin 100 mg capsule See Rx Instructions .Route 12/16/22 07/31/23 Rx .COMPLEX #30 caps doxycycline monohydrate 100 mg 100 mg PO BID #20 caps 07/29/23 08/01/23 Rx capsule amoxicillin 875 mg-potassium 875 mg PO Q12H #14 TABLETS 08/01/23 Unknown Rx clavulanate 125 mg tablet flurbiprofen 100 mg tablet 100 mg PO TID 08/08/23 Unknown History ivermectin 1 % topical cream applic topical 08/08/23 Unknown History (Soolantra) Allergy/AdvReac Type Severity Reaction Status Date / Time insect venom (yellow jacket) Allergy Severe Swelling Verified 08/08/23 10:25 Sulfa (Sulfonamide Allergy Intermediate Hives Verified 08/08/23 10:25 Antibiotics) Family History Mother Diabetes Alzheimer's dementia Father Heart disease Diabetes Grandmother Diabetes COPD (chronic obstructive pulmonary disease) Breast cancer Colon cancer Aunt Breast cancer Brother Diabetes Grandfather CVA (cerebral vascular accident) Brother Kidney malignant neoplasm Other Hypertension Surgical History history of thyroid biopsy (~10/20/19) dental laser surgery History of total abdominal hysterectomy History of bilateral ligation of fallopian tubes H/O colonoscopy Social History Smoking Status: Never smoker Electronic Cigarette Use: not used second hand exposure: No alcohol intake: former substance use type: does not use caffeine: Yes what type of physical activity do you participate in: walking seatbelt use: always do you feel safe at home: Yes additional social history: 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 General Appearance: cooperative, comfortable, well kempt and well developed Orientation / Consciousness: awake, oriented to person, oriented to place and oriented to time Exam Limitations: no limitations HEENT normocephalic, head/scalp atraumatic, hearing grossly normal bilaterally and external ears normal Head and Scalp: normal to inspection, normocephalic and atraumatic Face and Sinus: normal facial exam Nose: external nose normal External Ear: external ears normal Mouth: lips normal Eyes PERRL and EOMs intact bilaterally General Eye: normal appearance of both eyes Neck full ROM Resp normal respiratory effort, normal air movement, no retractions and no use of accessory muscles Effort and Inspection: able to speak in complete sentences Extremity no calf tenderness General Extremity: Negative for clubbing or cyanosis Skin Wound Narrative: A dog bite wound is noted on the patient's left medial calf. Dimensions are documented elsewhere. The wound is now quite small, with absence of tunneling which had been previously noted. The wound appears pink and healthy, with evidence of active granulation tissue. There is no surrounding erythema. There is no drainage or odor. There is no obvious sign of infection or cellulitis. The distal left lower extremity appears warm and well-perfused. Pedal pulses are palpable. There is no significant swelling or edema. Neuro oriented x3, CN's II-XII intact bilaterally, moves all extremities and no focal motor deficits Sensorium / Orientation: awake, alert, oriented to person, oriented to place and oriented to time Psych Appearance: grossly normal and appropriate Attitude: calm Activity / Motor Behavior: appropriate eye contact Speech: normal speech Mood & Affect: euthymic mood Thought Process: normal thought process Thought Content: normal thought content Attention / Concentration: attention grossly intact Debridement Note Debridement Note Wound debrided: Dog bite wound-left medial calf Laterality: Left Type of Debridement: Excisional debridement Anesthesia Used: 5% Lidocaine Gel Depth: Down to and including healthy tissue and in the subcutaneous layer Percentage of wound debrided: 100 Instrument Used: - (1 mm sterile curette) Tissue Removed: Bioburden Severity: Fat Layer Exposed Amount of bleeding with debridement: Mild Bleeding Controlled with: Compression and gauze Patient tolerated procedure: Patient tolerated procedure well Post-Debridement Measurements and Additional Note: Post-Debridement Measurements/Treatment SWATI - Nurse 1 - General Ulcer Assessment Start: 08/19/23 13:53 Freq: Status: Active Protocol: CHILO Activity Type Activity Date Activity User E-sign Co-sign Detail Recorded Client Recorded Date Recorded By Document 08/19/23 13:53 RB wound 08/19/23 13:57 RB Document 08/26/23 13:59 KW g 08/26/23 14:03 KW Document 09/02/23 14:42 KW h 09/02/23 14:44 KW 08/19/23 08/26/23 09/02/23 13:53 13:59 14:42 WC - Today's Visit Information Type of service Follow-up Visit Follow-up Visit Follow-up Visit (Physician/TRAILER CHIEF (Physician/TRAILER CHIEF (Physician/TRAILER CHIEF ) ) ) Arrival Mode Ambulatory Ambulatory Ambulatory Transfer Assistance None Patient Identification Verified (Name & Yes Yes Yes ) Patient Requires Transmission-Based No Precautions Height and Weight Body Mass Index (BMI) 29.0 29.0 29.0 BMI Classification Overweight Overweight Overweight Vital Signs Temperature (97.8 F-99.1 F) 98.1 F Temperature Source Temporal Pulse Rate (60-100) 86 78 68 Pulse Location Monitor Monitor Monitor Respiratory Rate (12-18) 18 16 18 Respiratory rate source Observation Observation Observation Oxygen Delivery Method Room Air Room Air Blood Pressure (90/60-120/80) 145/90 H 141/86 H 161/97 H Blood Pressure Mean 108 104 118 Source Monitor Monitor Monitor Position Semi-Fowlers Semi-Fowlers Semi-Fowlers Blood Pressure Location Left Arm Left Arm Right Arm History Since Last Visit- (Skip if this is Patient's initial visit) Have you changed medications since your No No No last visit? Any new allergies or adverse reactions No No No Had a fall/change in ADL's that may No No No increase risk of falls Signs or symptoms of abuse and/or No No neglect since last visit Have you been in the hospital since your No No last visit? Has dressing in place as prescribed Yes Yes Has compression in place as prescribed Yes Yes Has offloadiing in place as prescribed No N/A Experienced any changes in pain level or No No management Left Footwear Regular Shoe Right Footwear Regular Shoe Pain Scale: 0-10 Numeric Is Patient Pain Free? Yes No Yes WC - Nurse 1 - General Ulcer Measurement Start: 08/19/23 13:53 Freq: Status: Active Protocol: Activity Type Activity Date Activity User E-sign Co-sign Detail Recorded Client Recorded Date Recorded By Document 08/19/23 13:53 RB wound 08/19/23 13:57 RB Document 08/26/23 13:59 KW g 08/26/23 14:03 KW Document 09/02/23 14:42 KW h 09/02/23 14:44 KW 08/19/23 08/26/2309/01/24 13:53 13:59 14:42 Wound Center Nurse 1 #1 LT MED LE -Combined with other wound No -Current Size (cm) - Length 0.3 0.2 0.1 -Current Size (cm) - Width 0.9 0.3 0.1 -Current Size (cm) - Depth 1.1 0.2 0.1 -Total Square Cm 0.27 0.06 0.01 -Date of Last Picture (Recall this 08/26/23 09/02/23 field) -Tunneling No -Undermining/Tunneling No -Circular Undermining No -Exudate Amt Medium None Present -Exudate Type Serosanguineous -Wound Margin Thickened & Distinct, Rolled Under Outline Attached -Granulation Amt Medium (34-66%) Small (1-33%) -Granulation Quality [place] Red -Slough/Fibrin Yes -Necrosis Amt Medium (34-66%) -Necrotic Tissue Type Adherent Slough -Structure Exposed N/A -Texture (Azra-wound Skin Appearance) Assessed, Assessed Assessed Scarring -Moisture (Azra-wound Skin Appearance) Assessed Assessed Assessed -Color (Azra-wound Skin Appearance) Assessed Assessed Assessed -Temperature (Azra-wound Skin No Abnormality No Abnormality No Abnormality Appearance) (Pt Warm) (Pt Warm) (Pt Warm) -Tenderness on Palpation (Azra-wound No No No Skin Appearance) -Ulcer Cleansing Wound Cleanser Rinsed/ Rinsed/ Irrigated with Irrigated with Saline Saline -Foul Odor after Cleansing No No No -Anesthetic Used 5% Lidocaine 5% Lidocaine 5% Lidocaine Gel Gel Gel Lower Limb Edema Present Yes Point of Measurement (cm from the distal 42.8 point) Left Calf (cm) 43 44.5 Point of measurement (cm from the medial 25 instep) Left Ankle (cm) 24.8 24.5 WC - Nurse 2 - General Ulcer CM Notes Start: 08/19/23 13:53 Freq: Status: Active Protocol: Activity Type Activity Date Activity User E-sign Co-sign Detail Recorded Client Recorded Date Recorded By Document 08/19/23 14:05 JF [id number] 08/19/23 14:08 JF Document 08/26/23 14:12 DS 1 08/26/23 14:16 DS Document 09/02/23 14:55 JF 0000 09/02/23 14:56 JF 08/19/23 08/26/23 09/02/23 14:05 14:12 14:55 Wound Center Nurse 2 #1 LT MED LE -Time 14:06 14:13 14:55 -Correct Patient Yes Yes Yes -Correct Side, Site, Position Yes Yes Yes -Correct Procedure Yes Yes Yes -Procedure Performed Yes Yes Yes -Type of Procedure Debridement Debridement Debridement -Clinical Debridement Subcutaneous Subcutaneous Subcutaneous -Tissue Removed Subcutaneous Subcutaneous Dermis -Post Debridement (cm) - Length 0.3 0.3 0.1 -Post Debridement (cm) - Width 1.0 0.9 0.5 -Post Debridement (cm) - Depth 1.7 0.7 0.1 -Total Square (Post) (cm) 0.30 0.27 0.05 -Area of Debridement (cm) - Length 0.3 0.3 0.1 -Area of Debridement (cm) - Width 1.0 0.9 0.5 -Total Square (Area) (cm) 0.30 0.27 0.05 -Tunneling No No No -Undermining/Tunneling No No No -Circular Undermining No No No -Wound/Ulcer Outcome Not Healed Not Healed Not Healed -Ulcer Cleansing Rinsed/ Rinsed/ Rinsed/ Irrigated with Irrigated with Irrigated with Saline Saline Saline -Foul Odor after Cleansing No No -Bioengineered Tissue No No -Bleeding Controlled with Pressure Pressure Pressure -Treatment Response Procedure Procedure Procedure Tolerated Well Tolerated Well Tolerated Well -Offloading No No -Debridement - Subq, 1st 20sq cm Yes Yes Yes Pain Scale: 0-10 Numeric Is Patient Pain Free? Yes Yes Yes WC - Nurse 3 - General Ulcer D/C NN Start: 08/19/23 13:53 Freq: Status: Active Protocol: Activity Type Activity Date Activity User E-sign Co-sign Detail Recorded Client Recorded Date Recorded By Document 08/26/23 14:33 [id number] 08/26/23 14:34 Document 09/02/23 14:59 JF 0000 09/02/23 15:00 08/26/23 09/02/23 14:33 14:59 Wound Care Center Nurse 3 #1 LT MED LE -Ulcer Cleansing Rinsed/ Rinsed/ Irrigated with Irrigated with Saline Saline -Foul Odor after Cleansing No No -Primary Dressing Applied Nugauze, Plain C Hydrogel ($) 1/4in -Primary Dressing Covered/Secured with Dry Gauze, Dry Gauze, Secured with Secured with Tape Tape -Nugauze, Iodoform 1/4in 1 -Nugauze, Plain 1/4in 1 Left -Tubular Bandage Double Layer Double Layer -Size of Tubigrip Used Size E Size D -Size D ($) 0 -Size E ($) 2 Pain Scale: 0-10 Numeric Is Patient Pain Free? Yes Yes WC - Visit Discharge Discharge Condition Stable Stable Ambulatory Status Ambulatory Ambulatory Transportation Private Auto Private Auto Medication Reconcilliation completed & Yes Yes provided to patient/care provider Clinical Summary of Care Provided Yes Yes Charges/Coding Procedures Integumentary [id number]: [id number] Sara subq tissue 20 sq cm/< Assessment/Plan Assessment/Plan (1) Dog bite of calf: CODE(S): S81.859A - Open bite, unspecified lower leg, initial encounter; W54.0XXA - Bitten by dog, initial encounter QUALIFIERS: Encounter type: subsequent encounter Laterality: left Qualified Code(s): S81.852D - Open bite, left lower leg, subsequent encounter; W54.0XXD - Bitten by dog, subsequent encounter (2) Open wound of left lower leg: CODE(S): S81.802A - Unspecified open wound, left lower leg, initial encounter QUALIFIERS: Encounter type: subsequent encounter Qualified Code(s): S81.802D - Unspecified open wound, left lower leg, subsequent encounter (3) Arthritis: CODE(S): M19.90 - Unspecified osteoarthritis, unspecified site (4) Depression with anxiety: CODE(S): F41.8 - Other specified anxiety disorders (5) Intracranial meningioma: CODE(S): D32.0 - Benign neoplasm of cerebral meninges (6) Burning mouth syndrome: CODE(S): K14.6 - Glossodynia (7) History of bilateral ligation of fallopian tubes: CODE(S): Z98.51 - Tubal ligation status (8) History of total abdominal hysterectomy: CODE(S): Z90.710 - Acquired absence of both cervix and uterus (9) history of thyroid biopsy: (10) Disorder of left rotator cuff: CODE(S): M67.912 - Unspecified disorder of synovium and tendon, left shoulder (11) Multinodular goiter: CODE(S): E04.2 - Nontoxic multinodular goiter (12) Osteoarthritis of both knees: CODE(S): M17.0 - Bilateral primary osteoarthritis of knee (13) Rosacea: CODE(S): L71.9 - Rosacea, unspecified PLAN: Plan This is a 58-year-old generally healthy and active female who sustained a dog bite to her left medial calf approximately 6 weeks prior to presentation. The dog bite wound failed to heal appropriately, and had developed an abscess which required incision and drainage, performed in the [facility] Emergency Department on August 01, 2023. She has completed a course of doxycycline orally. There is no obvious indication of infection or cellulitis at this time. The wound is now nearly healed, having decreased in size significantly since the patient's last visit. We are to implement the use of collagen hydrogel topically, which will be applied by the patient on a daily basis. The patient has been instructed in the appropriate means of application. The patient has been advised to elevate her lower extremities as much as possible to minimize swelling. In addition, she is to continue wearing double layer Tubigrip's on a daily basis. She is to return for reevaluation in approximately 1 week. Total time: 22 minutes
== END 2023-09-07 23:59 | disposition home or self-care (01) ==
LOC: WC 14:15
PROVIDERS: PCP Family Medicine; Referring Provider Physician Assistant; Visit Provider Surgery
DX: S81.852A Open bite, left lower leg, initial encounter (principal); D32.0 Benign neoplasm of cerebral meninges; W54.0XXA Bitten by dog, initial encounter; L71.9 Rosacea, unspecified; E04.2 Nontoxic multinodular goiter; M17.0 Bilateral primary osteoarthritis of knee; Z79.899 Other long term (current) drug therapy
CPT/HCPCS: 11042

== ENCOUNTER 2023-09-09 14:13 | Outpatient (RCR) | payer OTHER, SELFPAY ==
[2023-09-08 00:17] VITALS: BP 127/80; PULSE 76; RESP 18; TEMP 36.1; BMI 29.0
[2023-09-09 14:19] VITALS: BP 145/93; PULSE 70; RESP 18; TEMP 36.1; BMI 29.0
--- NOTE | 2023-09-09 16:49 | HP.PCM_ITS ---
History of Present Illness Date of Service: 09/09/23 Chief Complaint: Dog bite wound?left medial calf History of Wound: This is a 58-year-old female who sustained a dog bite to her left medial calf approximately 6 weeks prior to presentation. She was subsequently seen and evaluated at an urgent care center on July 29, 2023, where it was noted that the dog bite wound had failed to heal appropriately, and was involved with erythema and swelling, consistent with cellulitis. A wound culture was obtained, and a prescription was provided for doxycycline orally. Three days later, on August 01, 2023, the patient presented to the [facility] Emergency Department for further evaluation and treatment. At that time, fluctuance, erythema, and induration were noted, thought to be indicative of an abscess. At that time, lymphangitis and lymphadenopathy were not noted. An abscess was drained, and the patient was placed on Augmentin 875 mg p.o. every 12 hours, to be taken for 7 days. Thereafter, the patient's primary care physician indicated his preference for the patient to continue with doxycycline, and the patient was advised to discontinue Augmentin. She completed her course of doxycycline. She had been using Ammy-Hex to cleanse the wound. The results of the wound cultures, obtained on July 29, 2023, indicated the presence of Staphylococcus aureus, which was sensitive to doxycycline, as well as multiple other oral agents. The patient is active and functional. She participates in [employer] for exercise. She is of relatively normal body habitus. [facility] Medical History Open wound of left lower leg Dog bite of calf Cellulitis of left lower leg Burning mouth syndrome Multinodular goiter Arthritis Symptomatic menopausal or female climacteric states Rosacea Osteoarthritis of both knees Lump of breast Disorder of left rotator cuff Candidal vulvovaginitis Home Medications ?Medication ?Instructions ?Recorded ?Last Taken ?Type estradiol 0.05 mg/24 hr weekly 1 patch transdermal QWEEK #12 ea 07/08/22 07/27/23 Rx transdermal patch gabapentin 100 mg capsule See Rx Instructions .Route 12/16/22 07/31/23 Rx .COMPLEX #30 caps doxycycline monohydrate 100 mg 100 mg PO BID #20 caps 07/29/23 08/01/23 Rx capsule amoxicillin 875 mg-potassium 875 mg PO Q12H #14 TABLETS 08/01/23 Unknown Rx clavulanate 125 mg tablet flurbiprofen 100 mg tablet 100 mg PO TID 08/08/23 Unknown History ivermectin 1 % topical cream applic topical 08/08/23 Unknown History (Soolantra) Allergy/AdvReac Type Severity Reaction Status Date / Time insect venom (yellow jacket) Allergy Severe Swelling Verified 08/08/23 10:25 Sulfa (Sulfonamide Allergy Intermediate Hives Verified 08/08/23 10:25 Antibiotics) Family History Mother Diabetes Alzheimer's dementia Father Heart disease Diabetes Grandmother Diabetes COPD (chronic obstructive pulmonary disease) Breast cancer Colon cancer Aunt Breast cancer Brother Diabetes Grandfather CVA (cerebral vascular accident) Brother Kidney malignant neoplasm Other Hypertension Surgical History history of thyroid biopsy (~10/20/19) dental laser surgery History of total abdominal hysterectomy History of bilateral ligation of fallopian tubes H/O colonoscopy Social History Smoking Status: Never smoker Electronic Cigarette Use: not used second hand exposure: No alcohol intake: former substance use type: does not use caffeine: Yes what type of physical activity do you participate in: walking seatbelt use: always do you feel safe at home: Yes additional social history: 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 General Appearance: cooperative, comfortable, well kempt and well developed Orientation / Consciousness: awake, oriented to person, oriented to place and oriented to time Exam Limitations: no limitations HEENT normocephalic, head/scalp atraumatic, hearing grossly normal bilaterally and external ears normal Head and Scalp: normal to inspection, normocephalic and atraumatic Face and Sinus: normal facial exam Nose: external nose normal External Ear: external ears normal Mouth: lips normal Eyes PERRL and EOMs intact bilaterally General Eye: normal appearance of both eyes Neck full ROM Resp normal respiratory effort, normal air movement, no retractions and no use of accessory muscles Effort and Inspection: able to speak in complete sentences Extremity no calf tenderness General Extremity: Negative for clubbing or cyanosis Skin Wound Narrative: The patient's left medial calf dog bite wound is now completely healed and epithelialized. There is no sign of infection or cellulitis. Neuro oriented x3, CN's II-XII intact bilaterally, moves all extremities and no focal motor deficits Sensorium / Orientation: awake, alert, oriented to person, oriented to place and oriented to time Psych Appearance: grossly normal and appropriate Attitude: calm Activity / Motor Behavior: appropriate eye contact Speech: normal speech Mood & Affect: euthymic mood Thought Process: normal thought process Thought Content: normal thought content Attention / Concentration: attention grossly intact Debridement Note Debridement Note No debridement was completed: No debridement was completed today (The patient's dog bite wound is completely healed and epithelialized.) Post-Debridement Measurements and Additional Note: Post-Debridement Measurements/Treatment - Nurse 1 - General Ulcer Assessment Start: 09/09/23 14:19 Freq: Status: Active Protocol: CHILO Activity Type Activity Date Activity User E-sign Co-sign Detail Recorded Client Recorded Date Recorded By Document 09/09/23 14:19 KW z 09/09/23 14:21 KW 09/09/23 14:19 - Today's Visit Information Type of service Follow-up Visit (Physician/PROPERTY INSPECTOR ) Arrival Mode Ambulatory Patient Identification Verified (Name & Yes ) Height and Weight Body Mass Index (BMI) 29.0 BMI Classification Overweight Vital Signs Temperature (97.8 F-99.1 F) 97.0 F L Temperature Source Temporal Pulse Rate (60-100) 70 Pulse Location Monitor Respiratory Rate (12-18) 18 Respiratory rate source Observation Oxygen Delivery Method Room Air Blood Pressure (90/60-120/80) 145/93 H Blood Pressure Mean 110 Source Monitor Position Semi-Fowlers Blood Pressure Location Left Arm History Since Last Visit- (Skip if this is Patient's initial visit) Have you changed medications since your No last visit? Any new allergies or adverse reactions No Had a fall/change in ADL's that may No increase risk of falls Signs or symptoms of abuse and/or No neglect since last visit Have you been in the hospital since your No last visit? Has dressing in place as prescribed Yes Has compression in place as prescribed N/A Has offloadiing in place as prescribed N/A Experienced any changes in pain level or No management Left Footwear Regular Shoe Right Footwear Regular Shoe Pain Scale: 0-10 Numeric Is Patient Pain Free? Yes WC - Nurse 1 - General Ulcer Measurement Start: 09/09/23 14:19 Freq: Status: Active Protocol: Activity Type Activity Date Activity User E-sign Co-sign Detail Recorded Client Recorded Date Recorded By Document 09/09/23 14:19 KW z 09/09/23 14:21 KW 09/09/23 14:19 Wound Center Nurse 1 #1 LT MED LE -Current Size (cm) - Length 0.1 -Current Size (cm) - Width 0.1 -Current Size (cm) - Depth 0.1 -Total Square Cm 0.01 -Date of Last Picture (Recall this 09/09/23 field) -Epithelialization Large 67-100% -Exudate Amt None Present -Texture (Azra-wound Skin Appearance) Assessed -Moisture (Azra-wound Skin Appearance) Assessed -Color (Azra-wound Skin Appearance) Assessed -Temperature (Azra-wound Skin No Abnormality Appearance) (Pt Warm) -Tenderness on Palpation (Azra-wound No Skin Appearance) -Ulcer Cleansing Rinsed/ Irrigated with Saline -Foul Odor after Cleansing No -Anesthetic Used 5% Lidocaine Gel SWATI - Nurse 2 - General Ulcer CM Notes Start: 09/09/23 14:19 Freq: Status: Active Protocol: Activity Type Activity Date Activity User E-sign Co-sign Detail Recorded Client Recorded Date Recorded By Document 09/09/23 14:27 [id number] 09/09/23 14:28 JF 09/09/23 14:27 Wound Center Nurse 2 -Correct Patient No -Correct Side, Site, Position No -Correct Procedure No -Type of Procedure Debridement -Post Debridement (cm) - Length 0 -Post Debridement (cm) - Width 0 -Post Debridement (cm) - Depth 0 -Total Square (Post) (cm) 0 -Area of Debridement (cm) - Length 0 -Area of Debridement (cm) - Width 0 -Total Square (Area) (cm) 0 -Wound/Ulcer Outcome Healed- Epithelialized Pain Scale: 0-10 Numeric Is Patient Pain Free? Yes - Nurse 3 - General Ulcer D/C NN Start: 09/09/23 14:19 Freq: Status: Active Protocol: Activity Type Activity Date Activity User E-sign Co-sign Detail Recorded Client Recorded Date Recorded By Document 09/09/23 14:28 [id number] 09/09/23 14:28 09/09/23 14:28 Is Patient Pain Free? Yes - Visit Discharge Discharge Condition Stable Ambulatory Status Ambulatory Transportation Private Auto Medication Reconcilliation completed & Yes provided to patient/care provider Clinical Summary of Care Provided Yes Notes: Dry gauze applied. Charges/Coding Visit Charges Office Visits / Consults: 90629 OV L3 Est 20min Assessment/Plan Assessment/Plan (1) Dog bite of calf: CODE(S): S81.859A - Open bite, unspecified lower leg, initial encounter; W54.0XXA - Bitten by dog, initial encounter QUALIFIERS: Encounter type: subsequent encounter Laterality: left Qualified Code(s): S81.852D - Open bite, left lower leg, subsequent encounter; W54.0XXD - Bitten by dog, subsequent encounter (2) Open wound of left lower leg: CODE(S): S81.802A - Unspecified open wound, left lower leg, initial encounter QUALIFIERS: Encounter type: subsequent encounter Qualified Code(s): S81.802D - Unspecified open wound, left lower leg, subsequent encounter (3) Arthritis: CODE(S): M19.90 - Unspecified osteoarthritis, unspecified site (4) Depression with anxiety: CODE(S): F41.8 - Other specified anxiety disorders (5) Intracranial meningioma: CODE(S): D32.0 - Benign neoplasm of cerebral meninges (6) Burning mouth syndrome: CODE(S): K14.6 - Glossodynia (7) History of bilateral ligation of fallopian tubes: CODE(S): Z98.51 - Tubal ligation status (8) History of total abdominal hysterectomy: CODE(S): Z90.710 - Acquired absence of both cervix and uterus (9) history of thyroid biopsy: (10) Disorder of left rotator cuff: CODE(S): M67.912 - Unspecified disorder of synovium and tendon, left shoulder (11) Multinodular goiter: CODE(S): E04.2 - Nontoxic multinodular goiter (12) Osteoarthritis of both knees: CODE(S): M17.0 - Bilateral primary osteoarthritis of knee (13) Rosacea: CODE(S): L71.9 - Rosacea, unspecified PLAN: Plan This is a 58-year-old generally healthy and active female who sustained a dog bite to her left medial calf approximately 6 weeks prior to presentation. The dog bite wound failed to heal appropriately, and had developed an abscess which required incision and drainage, performed in the [facility] Emergency Department on August 01, 2023. She has been treated at this facility since her initial presentation, and presents today where it is noted that her dog bite wound is completely healed and epithelialized. The patient is to be discharged, and is to follow-up henceforth on an as-needed basis. Total time: 22 minutes
== END 2023-09-23 08:05 | disposition home or self-care (01) ==
LOC: WC 14:13
PROVIDERS: PCP Family Medicine; Referring Provider Physician Assistant; Visit Provider Surgery
DX: Z09 Encounter for follow-up examination after completed treatment for conditions other than malignant neoplasm (principal); D32.0 Benign neoplasm of cerebral meninges; E04.2 Nontoxic multinodular goiter; M17.0 Bilateral primary osteoarthritis of knee; L71.9 Rosacea, unspecified
CPT/HCPCS: 99213; G0463

== ENCOUNTER → 2023-09-30 | Outpatient (CLI) | payer OTHER, SELFPAY ==
--- NOTE | 2023-09-30 14:43 | BI_ITS ---
MAMMOGRAPHY - BILATERAL SCREENING REASON FOR EXAM: Female, 58 years old. Routine annual screening examination. PERTINENT HISTORY: Grandmother with breast cancer. Aunts with breast cancer. TECHNIQUE: Digital bilateral breast geoff (3D mammographic acquisition) in the CC and MLO projections. 2-D mediolateral oblique (MLO) and craniocaudad (CC) views of both breasts were obtained. CAD: Full Field Digital Mammography with Computer Added Detection was performed. COMPARISON: Comparison is made with prior study dated March 26, 2022 and April 13, 2021. FINDINGS: Breast Composition: The breasts are extremely dense, which lowers the sensitivity of mammography. There are no dominant masses or suspicious calcifications. No other significant abnormalities are identified. There has been no significant change since the prior study. BI/SCRN MAMM (CAD)W/GEOFF BILAT IMPRESSION: Stable bilateral screening mammogram. Yearly follow-up mammogram recommended. (A) ASSESSMENT CATEGORY: BIRADS Category 1: Negative. A letter regarding these results will be sent to the patient by the facility within 30 days. Approximately 10% of breast cancers are not detected by mammography. A normal mammogram should not delay biopsy of a clinically suspicious abnormality. [id number] Electronically Signed: Parag Lai MD at 15:40 EDT ,
== END | disposition home or self-care (01) ==
LOC: OPBI 14:43
PROVIDERS: PCP Family Medicine; Referring Provider Nurse Practitioner Women's Health; Visit Provider Nurse Practitioner Women's Health
DX: Z12.31 Encounter for screening mammogram for malignant neoplasm of breast (principal)
CPT/HCPCS: 77063; 77067

== ENCOUNTER → 2024-05-24 | Outpatient (CLI) | payer OTHER, SELFPAY ==
--- NOTE | 2024-05-24 13:16 | MRI_ITS ---
PROCEDURE: BRAIN W/WO CONTRAST REASON FOR EXAM: FOLLOW-UP MENINGIOMA TECHNIQUE: Multiplanar, multisequence MRI of the brain performed with intravenous gadolinium-based contrast. CONTRAST: 18 cc Clariscan COMPARISON: 11/2022 FINDINGS: Extra-axial lesion again detected measuring 19 x 20 mm with enhancement who with imaging characteristics of a meningioma. This has not changed. This abuts the left cerebellar hemisphere and is located just below the tentorium. No midline shift. No mass effect. No acute infarct. No acute hemorrhage. Mastoid air cells and paranasal sinuses otherwise clear MRI/Brain W/WO Contrast IMPRESSION: Stable left posterior fossa meningioma Reading Location: [id number]
== END | disposition home or self-care (01) ==
PROVIDERS: PCP Family Medicine; Referring Provider Psychiatry & Neurology Neurology; Visit Provider Psychiatry & Neurology Neurology
DX: D32.9 Benign neoplasm of meninges, unspecified (principal)
CPT/HCPCS: 70553; A9575

== ENCOUNTER 2024-06-22 14:08 | Outpatient (CLI) | payer OTHER, SELFPAY ==
[2024-06-22 14:12] LABS: Bacteria 0 SEEN /hpf (None Seen); Mucous, Urine 0 SEEN /hpf (<or=2+)
[2024-06-22 18:33] LABS: Absolute Lymphocyte Count 2.25 X10^3/uL (0.83-4.51); Absolute Neutrophil Count 4.6 X10^3/uL (2.0-7.7); Basophil# 0.03 X10^3/uL; Basophil% 0.4 % (0-1); Eosinophil# 0.21 X10^3/uL; Eosinophils% 2.8 % (0-5); Hematocrit 42.5 % (37-47); Hemoglobin 14.6 g/dL (12.0-15.0); Lymphocyte # 2.25 X10^3/ul (0.83-4.51); Lymphocyte % 29.9 % (19-41); Mean Corp Hgb Conc 34.4 g/dL (32-36); Mean Corpuscular Hgb 31.7 pg (27.0-32.0); Mean Corpuscular Volume 92.2 fL (81-99); Monocyte# 0.43 X10^3/uL; Monocyte% 5.7 % (0-10); NRBC Flagged by Analyzer 0 % (0-5); Neutrophil # 4.58 X10^3/uL (2.7-7.7); Neutrophil % 60.9 % (47-70); Platelet Count 242 K/mm3 (150-450); Red Blood Count 4.61 M/mm3 (4.2-5.4); White Blood Count 7.5 K/mm3 (4.4-11.0)
[2024-06-22 18:40] LABS: Color, Urine Yellow (Yellow); Glucose, Dipstick Normal (Normal); Ketone-Dipstick Negative (Negative); Leukocyte Esterase-Dipstick Negative /ul (Negative); Nitrite-Dipstick Negative (Negative); Occult Blood-Urine Negative /ul (Negative); Protein-Dipstick 15 mg/dl (Negative); Urine Bilirubin Dipstick Negative (Negative); Urine Clarity Clear (Clear); Urine Urobilinogen Normal (Normal); Urine pH 6.5 (5.0 - 8.0)
[2024-06-22 19:19] LABS: ALB/GLOB Ratio 1.8 RATIO (0.9-2.4); AST(SGOT) 22 U/L (<=31); Alanine Aminotransfer ALT/SGPT 25 U/L (<=34); Albumin, Serum 4.5 g/dL (3.4-4.8); Alkaline Phosphatase 54 U/L (35-104); Anion Gap 12 (5-15); BUN 22 mg/dL (4-19); BUN/Creat Ratio 27.9 RATIO (10-20); Calcium,Total 10.2 mg/dL (7.6-11.0); Carbon Dioxide 25.3 mmol/L (21.0-32.0); Chloride 103 mmol/L (98-108); Creatinine, Serum 0.78 mg/dL (0.70-1.20); EST Glomerular Filtration Rate 86 (>60); Globulin 2.5 g/dL (2.2-4.2); Glucose 87 mg/dL (70-99); Magnesium 2.4 mg/dL (1.5-2.2); Potassium 3.8 mmol/L (3.3-5.1); Protein, Total 6.9 g/dL (5.9-8.4); Sodium Level 140 mmol/L (133-145); Total Bilirubin 0.35 mg/dL (0.00-1.30); Vitamin D,25 Hydroxy 32.1 ng/mL (30-100)
[2024-06-22 19:56] LABS: Red Blood Cells-Urine 0-5 SEEN /hpf (0-5); Squamous Epithelial Cells - UA 0-5 SEEN /hpf (5-10); White Blood Cells 0-5 SEEN /hpf (0-5)
== END 2024-06-22 23:59 | disposition home or self-care (01) ==
LOC: MFPLAB 14:09
PROVIDERS: PCP Family Medicine; Referring Provider Family Medicine; Visit Provider Family Medicine
DX: R03.0 Elevated blood-pressure reading, without diagnosis of hypertension (principal); E55.9 Vitamin D deficiency, unspecified
CPT/HCPCS: 36415; 80053; 81001; 82306; 83735; 85025

== ENCOUNTER → 2024-09-30 | Outpatient (CLI) | payer OTHER, SELFPAY ==
--- NOTE | 2024-09-30 13:30 | BI_ITS ---
EXAM: SCRN MAMM (CAD)W/GEOFF BILAT DATE: 09/30/2024 CLINICAL HISTORY: F, Age 59 y/o , SCREEN TECHNIQUE: SCRN MAMM (CAD)W/GEOFF BILAT COMPARISON: Prior exam(s) were compared FINDINGS: TISSUE DENSITY: The breasts are heterogeneously dense, which may obscure small masses. Bilateral Breast Mammographic Findings: No suspicious masses, calcifications or other abnormalities are identified. BI/SCRN MAMM (CAD)W/GEOFF BILAT IMPRESSION: No mammographic evidence of malignancy in either breast. OVERALL FINAL ASSESSMENT BI-RADS 1: NEGATIVE. RECOMMENDATION: Routine annual follow-up in 1 Year A letter with findings and recommendations will be mailed to the patient. Reading Location: [id number]
== END | disposition home or self-care (01) ==
LOC: OPBI 13:29
PROVIDERS: PCP Family Medicine; Referring Provider Nurse Practitioner Women's Health; Visit Provider Nurse Practitioner Women's Health
DX: Z12.31 Encounter for screening mammogram for malignant neoplasm of breast (principal)
CPT/HCPCS: 77063; 77067

== ENCOUNTER → 2024-12-23 | Outpatient (CLI) | payer OTHER, SELFPAY ==
--- OUTSIDE RECORDS SUMMARY | 2024-12-23 14:42 | XMS RPT_ITS | CCD ---
Author Organization [facility] CliniSyvt Care Team Providers Care Gate Watchman Name Role Phone NAIK, ROBERT Unavailable Unavailable NAIK, ROBERT Unavailable Unavailable NAIK, ROBERT Unavailable Unavailable NAIK, ROBERT Unavailable Unavailable NEYHART COLEMAN, ASHELY Unavailable Unavail able NEYHART COLEMAN, ASHELY Unavailable Unavail able NEYHART COLEMAN, ASHELY Unavailable Unavail able DOMINIQUE LAZO Unavailable Unavailable NEYHART COLEMAN, ASHELY Unavailable Unavail able NAIK, ROBERT Unavailable Unavailable NAIK, ROBERT Unavailable Unavailable NAIK, ROBERT Unavailable Unavailable NAIK, ROBERT Unavailable Unavailable Dr. Alexander iKng Primary Care Provider Dr. Alexander King Referring Provider [phone] Dr. Manuel Henderson Attending Provider Raiza NUCLEAR EQUIPMENT RESEARCH ENGINEER, NUCLEAR EQUIPMENT RESEARCH ENGINEER-C Ni Attending Provider [phone] Dr. Alexander King Primary Care Provider Dr. Alexander King Referring Provider Dr. Manuel Henderson Attending Provider Dr. Jessica Guido Attending Provider [phone] Dr. Alexander King Primary Care Provider Dr. Alexander King Referring Provider Dr. Manuel Henderson Attending Provider [phone] Echo NUCLEAR EQUIPMENT RESEARCH ENGINEER, NUCLEAR EQUIPMENT RESEARCH ENGINEER-C Merary Attending Provider [phone] Dr. Alexander King MD Primary Care Provider [phone]. Manuel Henderson MD Attending Provider Santiago ROSALES, Dr. Jackson Referring Provider Fernando ROSALES, Dr. Alexander Harris Attending Provider Fernando ROSALES, Dr. Alexander Harris Referring Provider Echo NUCLEAR EQUIPMENT RESEARCH ENGINEER-C, Merary Attending Provider Fernando ROSALES, Dr. Alexander Harris Primary Care Provider Santiago ROSALES, Dr. Jackson Attending Provider Echo NUCLEAR EQUIPMENT RESEARCH ENGINEER-C, Merary Referring Provider Alexander King Primary Care Unavailable [place] NUCLEAR EQUIPMENT RESEARCH ENGINEER, Merary Attending Unavailable Schinner, Alexander E Referring Unavailable Schinner, Alexander E Primary Care Unavailable Manuel Henderson Attending Unavailable Schinner, Alexander E Referring Unavailable Schinner, Alexander E Primary Care Unavailable [place] NUCLEAR EQUIPMENT RESEARCH ENGINEER, Merary Attending Unavailable Schinner, Alexander E Referring Unavailable Schinner, Alexander E Primary Care Unavailable Schinner, Alexander E Attending Unavailable Schinner, Alexander E Referring Unavailable Schinner, Alexander E Primary Care Unavailable [place] NUCLEAR EQUIPMENT RESEARCH ENGINEER, Merary Attending Unavailable [place] NUCLEAR EQUIPMENT RESEARCH ENGINEER, Merary Referring Unavailable Manuel Henderson Attending Unavailable Manuel Henderson Referring Unavailable Schinner, Alexander E Primary Care Unavailable Allergies Allergy Classification Reported Allergen(s) Allergy Type Date of Onset Reaction(s) Facility (1 source) Honey; Translations: [HONEY] Propensity to adverse reactions to drug (disorder) [facility]) Sulfonamides (Antibiotic); Translations: [SULFA (SULFONAMIDE ANTIBIOTICS)] Propensity to adverse reactions to drug (disorder) 5 [facility], Hives [facility] Repository (4 sources) YELLOW JACKETS Allergy to substance 2 [facility] Work Phone: (10 sources) insect venom; Translations: [insect venom] Allergy to substance [address] [facility] Medications Current Medications Medication Drug Class(es) Dates Sig (Normalized) Sig (Original) 168 hr estradiol 0.97344 mg/hr transdermal system (20 sources) Estrogen Start: 10-05-2024 Estradiol 0.05 mg/24 hr patch weekly Active 1 NMA TD EVERY WEEK 12 4 October 05, 2024 1:32pm Start: 07-15-2024 End: 10-05-2024 Estradiol 0.01 % (0.1 mg/gra m) cream Discontinued 0 VAGINAL .COMPLEX 42.5 2 July 15, 2024 12:00am October 05, 2024 1:26pm Menopausal syndrome Menopausal and female climacteric states small amount(.25mg) as directed vaginal every other day X 4 weeks then twice a week; Start: 11-05-2021 End: 07-15-2024 Estradiol 0.05 mg/24 hr patc h weekly Discontinued 1 NMA TD EVERY WEEK 12 4 September 24, 2023 1:34pm July 15, 2024 8:39am Start: 11-05-2021 End: 07-08-2022 apply 1 dose transdermal route every week Estradiol Active 1 PATCH TD EVERY WEEK July 08, 2022 2:01pm Start: 07-05-2021 End: 10-29-2021 Estradiol 0.025 mg/24 hr pat ch weekly Discontinued 1 NMA TD EVERY WEEK 4 4 July 05, 2021 3:48pm October 29, 2021 12:18pm Start: 07-05-2021 End: 11-05-2021 apply 1 dose transdermal route every week Estradiol 0.025 mg/24 hr patch weekly Discontinued 0 .ROUTE .COMPLEX 13 3 October 29, 2021 12:18pm November 05, 2021 11:07am APPLY 1 PATCH TRANSDERMALLY EVERY WEEK Start: 03-25-2019 End: 07-05-2021 Estradiol (Climara) 0.05 mg/ 24 hr patch weekly Discontinued 1 NMA TD EVERY WEEK 12 4 March 30, 2019 3:13pm April 04, 2020 2:32pm Start: 03-25-2019 End: 07-05-2021 Estradiol (Climara) 0.05 mg/ 24 hr patch weekly Discontinued 1 PATCH TD EVERY WEEK March 30, 2019 3:13pm April 04, 2020 2:32pm Start: 04-27-2018 End: 03-25-2019 Estradiol 0.05 mg/24 hr patc h weekly Discontinued 1 NMA TD EVERY WEEK 12 4 March 08, 2019 1:19pm March 25, 2019 4:21pm Start: 04-27-2018 End: 03-25-2019 apply 1 dose transdermal route every week Estradiol Discontinued 1 PATCH TD EVERY WEEK March 08, 2019 1:19pm March 25, 2019 4:21pm ivermectin 10 mg/ml topical cream (20 sources) Antiparasitic, Pediculicide Start: 08-08-2023 Ivermectin (Ivermectin 1 % Topical Cream) 1 % cream Active NMA TOPICAL August 08, 2023 12:00am Start: 10-12-2019 End: 07-29-2023 Ivermectin (Soolantra) 1 % c ream Discontinued 1 NMA TOPICAL DAILY July 05, 2021 12:00am July 29, 2023 2:15pm meloxicam 1.5 mg/ml oral suspension (3 sources) Nonsteroidal Anti-inflammatory Drug Start: 07-15-2024 take 7.5 mg by mouth once daily Meloxicam 7.5 mg/5 mL suspension Active 7.5 mg PO daily July 15, 2024 12:00am Multivitamin preparation (8 sources) Start: 11-16-2020 take 1 tablet by mouth once daily Multivitamin Active 1 TABLET PO DAILY November 16, 2020 8:56am Start: 11-16-2020 take 1 tablet by cynthia th once daily Multivitamin Active 1 TABLET PO DAILY November 15, 2020 11:00pm Start: 11-16-2020 take 1 tablet by cynthia th once daily Multivitamin Active 1 TABLET PO DAILY November 16, 2020 12:00am Completed/Discontinued Medications Medication Drug Class(es) Dates Sig (Normalized) Sig (Original) Alpha Lipoic Acid-Biotin (Alamax Cr) 600 mg- 450 mcg tablet extended release (13 sources) Start: 11-16-2020 End: 07-05-2021 take 1 tablet by mouth once daily Alpha Lipoic Acid-Biotin (Alamax Cr) 600 mg- 450 mcg tablet extended release Discontinued 1 TABLET PO DAILY November 16, 2020 8:56am July 05, 2021 2:45pm Start: 11-16-2020 take 1 tablet by cynthia th once daily Alpha Lipoic Acid-Biotin (Alamax Cr) 600 mg- 450 mcg tablet extended release Active 1 TABLET PO DAILY November 16, 2020 8:56am Start: 11-16-2020 End: 07-05-2021 Alpha Lipoic Acid-Biotin (Al amax Cr) 600 mg- 450 mcg tablet extended release Discontinued 1 {tbl} PO DAILY November 16, 2020 12:00am July 05, 2021 2:45pm Start: 11-16-2020 End: 07-05-2021 take 1 tablet by mouth once daily Alpha Lipoic Acid-Biotin (Alamax Cr) 600 mg- 450 mcg tablet extended release Discontinued 1 TABLET PO DAILY November 15, 2020 11:00pm July 05, 2021 1:45pm Start: 11-16-2020 End: 07-05-2021 take 1 tablet by mouth once daily Alpha Lipoic Acid-Biotin (Alamax Cr) 600 mg- 450 mcg tablet extended release Discontinued 1 TABLET PO DAILY November 16, 2020 12:00am July 05, 2021 2:45pm amantadine hydrochloride 100 mg oral capsule (10 sources) Influenza A M2 Protein Inhibitor Start: 10-16-2021 End: 03-07-2022 take 1 capsule by mouth once daily, then take 1 capsule by mouth twice daily Amantadine Hcl 100 mg capsule Discontinued 100 mg .ROUTE .COMPLEX 180 1 October 16, 2021 12:00am March 07, 2022 2:02pm Take 1 capsule PO daily for 1 week then 1 capsule BID thereafter amoxicillin 875 mg / clavulanate 125 mg oral tablet (5 sources) Penicillin-class Antibacterial Start: 08-01-2023 End: 09-24-2023 take 1 tablet by mouth every twelve hours Amoxicillin-Pot Clavulanate 875-125 mg tablet Discontinued 875 mg PO Q12H 14 0 August 01, 2023 12:00am September 24, 2023 1:36pm On Hold: Order Changed baclofen 10 mg oral tablet (13 sources) gamma-Aminobutyric Acid-ergic Agonist Start: 03-01-2021 End: 03-07-2022 take 1 tablet by mouth three times daily as needed for pain Baclofen 10 mg tablet Discontinued 10 mg PO THREE TIMES A DAY as needed for neck pain/headache 90 0 March 01, 2021 1:00am March 07, 2022 2:26pm benztropine mesylate 1 mg oral tablet (20 sources) Anticholinergic, Antihistamine Start: 06-21-2021 End: 06-21-2021 take 1 tablet by mouth once daily Benztropine 1 mg tablet Discontinued 1 mg PO DAILY June 21, 2021 1:39pm June 21, 2021 2:18pm Start: 01-18-2021 End: 06-21-2021 take 1 tablet by mouth twice daily Benztropine 1 mg tablet Discontinued 1 mg PO TWICE A DAY 180 1 January 18, 2021 1:00am June 21, 2021 1:39pm Start: 12-14-2020 End: 01-18-2021 take 1 tablet by mouth twice daily Benztropine 0.5 mg tablet Discontinued 0.5 mg PO TWICE A DAY 180 0 December 14, 2020 4:42pm January 18, 2021 2:36pm Start: 11-16-2020 End: 12-14-2020 take 1 tablet by mouth once daily Benztropine 0.5 mg tablet Discontinued 0.5 mg PO DAILY 90 1 November 21, 2020 12:55pm December 14, 2020 4:42pm betamethasone 0.5 mg/ml / clotrimazole 10 mg/ml topical cream (20 sources) Azole Antifungal, Corticosteroid Start: 04-04-2020 End: 07-05-2021 Clotrimazole-Betamethasone 1-0.05 % cream Discontinued 1 NMA TOPICAL TWICE A DAY as needed November 16, 2020 8:56am July 05, 2021 2:46pm Start: 04-04-2020 End: 07-05-2021 Clotrimazole-Betamethasone D iscontinued 1 APPLIC TOPICAL TWICE A DAY November 16, 2020 8:56am July 05, 2021 2:46pm 24 hr buPROPion hydrochloride 150 mg extended release oral tablet (13 sources) Aminoketone Start: 04-27-2018 End: 03-25-2019 take 1 tablet by mouth once daily in the morning Bupropion Hcl (Wellbutrin Xl) 150 mg tablet extended release 24 hr Discontinued 150 mg PO EVERY MORNING 30 April 27, 2018 1:00am March 25, 2019 4:21pm cholecalciferol 1.25 mg oral capsule (13 sources) Vitamin D Start: 11-16-2020 End: 04-14-2022 take 1 capsule by mouth every week Cholecalciferol (Vitamin D3) 1,250 mcg (50,000 unit) capsule Discontinued 1250 ug PO EVERY WEEK 4 November 16, 2020 12:00am June 21, 2021 7:23pm doxycycline monohydrate 100 mg oral capsule (5 sources) Tetracycline-clas s Drug Start: 07-29-2023 End: 09-24-2023 take 1 capsule by mouth twice daily Doxycycline Monohydrate 100 mg capsule Discontinued 100 mg PO TWICE A DAY July 29, 2023 12:00am September 24, 2023 1:36pm Estradiol (Vivelle-Dot) 0.05 mg/24 hr patch semiweekly (2 sources) Start: 10-05-2024 End: 10-05-2024 Estradiol (Vivelle-Dot) 0.05 mg/24 hr patch semiweekly Discontinued 1 NMA TD TWICE A WEEK October 05, 2024 12:00am October 05, 2024 1:32pm apply 1 patch for 3 days alternating with 1 patch for 4 days each week for 3 wks per 4-wk cycle flurbiprofen 100 mg oral tablet (20 sources) Nonsteroidal Anti-inflammatory Drug Start: 08-08-2023 End: 10-15-2023 take 1 tablet by mouth three times daily Flurbiprofen 100 mg tablet Discontinued 100 mg PO THREE TIMES A DAY August 08, 2023 12:00am October 15, 2023 11:48am Start: 02-26-2021 End: 07-29-2023 take 1 tablet by mouth three times daily as needed for pain Flurbiprofen 100 mg tablet Discontinued 100 mg PO THREE TIMES A DAY as needed for pain 90 November 27, 2022 12:27pm July 29, 2023 2:15pm gabapentin 100 mg oral capsule (20 sources) Anti-epileptic Agent Start: 11-27-2022 End: 09-15-2024 Gabapentin 100 mg capsule Discontinued 0 .ROUTE .COMPLEX 30 December 16, 2022 5:00pm October 15, 2023 11:48am TAKE 1 CAPSULE DAILY NEEDED FOR BURNING PAIN Start: 03-20-2022 End: 11-27-2022 Gabapentin 300 mg capsule Discontinued 300 mg PO .prn March 20, 2022 1:00am November 27, 2022 12:25pm Start: 11-16-2020 End: 01-18-2021 take 1 capsule by mouth once daily Gabapentin 300 mg capsule Discontinued 300 mg PO DAILY November 16, 2020 12:00am January 18, 2021 2:36pm Ginkgo Biloba (13 sources) Start: 11-16-2020 End: 07-05-2021 take 40 mg by mouth three times daily Ginkgo Biloba Discontinued 40 MG PO THREE TIMES A DAY November 16, 2020 8:57am July 05, 2021 2:46pm give with meal/snack Start: 11-16-2020 take 40 mg by mouth three times daily Ginkgo Biloba Active 40 MG PO THREE TIMES A DAY November 16, 2020 8:57am give with meal/snack Start: 11-16-2020 End: 07-05-2021 take 1 tablet by mouth three times daily Ginkgo Biloba 40 mg tablet Discontinued 40 mg PO THREE TIMES A DAY November 16, 2020 12:00am July 05, 2021 2:46pm give with meal/snack Start: 11-16-2020 End: 07-05-2021 take 40 mg by mouth three times daily Ginkgo Biloba Discontinued 40 MG PO THREE TIMES A DAY November 15, 2020 11:00pm July 05, 2021 1:46pm give with meal/snack Start: 11-16-2020 End: 07-05-2021 take 40 mg by mouth three times daily Ginkgo Biloba Discontinued 40 MG PO THREE TIMES A DAY November 16, 2020 12:00am July 05, 2021 2:46pm give with meal/snack minocycline 100 mg oral capsule (13 sources) Tetracycline-class Drug Start: 11-16-2020 End: 07-05-2021 take 1 capsule by mouth once daily Minocycline 100 mg capsule Discontinued 100 mg PO DAILY November 16, 2020 12:00am July 05, 2021 2:46pm Multivitamin tablet (5 sources) Start: 11-16-2020 End: 07-29-2023 Multivitamin tablet Discontinued 1 {tbl} PO DAILY November 16, 2020 12:00am July 29, 2023 2:15pm nystatin 575218 unt/ml / triamcinolone acetonide 1 mg/ml topical cream (20 sources) Polyene Antifungal, Corticosteroid Start: 04-11-2019 End: 04-18-2019 Nystatin-Triamcin olone 100,000-0.1 unit/g-% cream Discontinued 1 NMA TOPICAL TWICE A DAY as needed for itching 30 7 0 April 11, 2019 1:00am April 17, 2019 1:00am April 18, 2019 1:08am Start: 04-11-2019 End: 04-18-2019 Nystatin-Triamcinolone Disco ntinued 1 APPLIC TOPICAL TWICE A DAY 30 7 April 11, 2019 1:00am April 18, 2019 1:08am Start: 03-25-2019 End: 04-11-2019 nystatin-triamcinolone Disco ntinued APPLIC TOPICAL March 25, 2019 4:22pm April 11, 2019 5:08pm Start: 03-25-2019 End: 04-11-2019 Nystatin-Triamcinolone cream Discontinued NMA TOPICAL March 25, 2019 1:00am April 11, 2019 5:08pm Start: 03-25-2019 End: 04-11-2019 nystatin-triamcinolone Disco ntinued APPLIC TOPICAL March 25, 2019 12:00am April 11, 2019 4:08pm Start: 03-25-2019 End: 04-11-2019 nystatin-triamcinolone Disco ntinued APPLIC TOPICAL March 25, 2019 1:00am April 11, 2019 5:08pm ondansetron 4 mg oral tablet (13 sources) Serotonin-3 Receptor Antagonist Start: 02-26-2021 End: 07-05-2021 take 1 tablet by mouth three times daily as needed for nausea and vomiting Ondansetron Hcl (Zofran) 4 mg tablet Discontinued 4 mg PO THREE TIMES A DAY as needed for nausea and vomiting 90 0 February 26, 2021 1:00am July 05, 2021 2:47pm oxazepam 15 mg oral capsule (20 sources) Benzodiazepine Start: 03-24-2018 End: 07-05-2021 take 1 capsule by mouth at bedtime as needed Oxazepam 15 mg capsule Discontinued 15 mg PO AT BEDTIME as needed for insomnia October 12, 2019 9:06am July 05, 2021 2:46pm saccharomyces boulardii 250 mg oral capsule (13 sources) Start: 11-16-2020 End: 07-05-2021 take 1 capsule by mouth twice daily Saccharomyces Boulardii (Daily Probiotic (S. Boulardii)) 250 mg capsule Discontinued 250 mg PO TWICE A DAY November 16, 2020 12:00am July 05, 2021 2:47pm traZODone hydrochloride 50 mg oral tablet (13 sources) Serotonin Reuptake Inhibitor Start: 03-24-2018 End: 03-25-2019 take 1 tablet by mouth once daily Trazodone 50 mg tablet Discontinued 50 mg PO DAILY March 24, 2018 1:00am March 25, 2019 4:21pm trihexyphenidyl hydrochloride 2 mg oral tablet (13 sources) Start: 06-21-2021 End: 10-16-2021 take 1 tablet by mouth once daily, then take 1 tablet by mouth twice daily Trihexyphenidyl 2 mg tablet Discontinued 2 mg PO .COMPLEX 180 1 June 21, 2021 12:00am October 16, 2021 1:24pm 2 mg PO daily for one week then 2mg twice a day thereafter 24 hr venlafaxine 75 mg extended release oral capsule (20 sources) Serotonin and Norepinephrine Reuptake Inhibitor Start: 03-24-2018 End: 04-27-2018 take 1 capsule by mouth once daily Venlafaxine (Effexor Xr) 75 mg capsule,extended release 24hr Discontinued 75 mg PO DAILY 30 April 27, 2018 1:40pm April 27, 2018 4:55pm Problems Active Problems Problem Classification Problem Date Documented Da te Episodic/Chronic Anxiety disorders (13 sources) Mixed anxiety and depressive disorder; Translations: [Other specified anxiety disorders] 03-25-2019 Chronic Comment on above: oxazepam PRN, 1-2x m onth Diseases of mouth; excluding dental (16 sources) Burning mouth syndrome ; Translations: [Glossodynia] Episodic Comment on above: 04/30 Headache; including migraine (19 sources) Headache; Translations: [Headache] Episodic Menopausal disorders (20 sources) Menopausal syndrome; Translations: [Menopausal and female climacteric states] Onset: 07-15-2024 Chronic Comment on above: estradiol patch estradiol patch PCP d/c'd patch Nonmalignant breast conditions (10 sources) Mastodynia; Translations: [Pain of right breast] 03-20-2022 Episodic Open wounds of extremities (15 sources) Open bite, unspecified lower leg, initial encounter; Translations: [Infected dog bite of lower leg] 08-19-2023 Episodic Open wounds of head; neck; and trunk (2 sources) Wound abscess; Translations: [Open wound(s) (multiple) of unspecified site(s), complicated] 07-29-2023 Episodic Osteoarthritis (15 sources) Arthritis; Translations: [Unspecified osteoarthritis, unspecified site] 03-07-2022 Chronic Other and unspecified benign neoplasm (15 sources) Intracranial meningioma; Translations: [Benign neoplasm of cerebral meninges] 03-01-2021 Chronic Other and unspecified benign neoplasm (7 sources) Benign neoplasm of cerebral meninges; Translations: [Benign neoplasm of cerebral meninges] Chronic Other and unspecified benign neoplasm (5 sources) Neoplasm of meninges; Translations: [Benign neoplasm of meninges, unspecified] 10-15-2023 Chronic Other and unspecified benign neoplasm (1 source) Benign neoplasm of meninges, unspecified; Translations: [Benign neoplasm of meninges, unspecified] Onset: 10-13-2024 Chronic Other connective tissue disease (5 sources) Disorder of rotator cuff; Translations: [Unspecified disorder of synovium and tendon, left shoulder] 08-08-2023 Episodic Other female genital disorders (6 sources) Dyspareunia; Translations: [Dyspareunia] 07-15-2024 Chronic Comment on above: managed with estradi ol patch Other hereditary and degenerative nervous system conditions (15 sources) Oral dyskinesia; 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] 03-01-2021 Chronic Other hereditary and degenerative nervous system conditions (7 sources) Idiopathic orofacial dystonia; Translations: [Orofacial dyskinesia] Chronic Other inflammatory condition of skin (5 sources) Rosacea; Translations: [Rosacea, unspecified] 08-08-2023 Chronic Other liver diseases (1 source) Abnormal levels of other serum enzymes; Translations: [Abnormal levels of other serum enzymes] Onset: 07-08-2017 Episodic Other nutritional; endocrine; and metabolic disorders (5 sources) Obesity; Translations: [Obesity, unspecified] 09-24-2023 Chronic Skin and subcutaneous tissue infections (10 sources) Cellulitis of lower leg; Translations: [Cellulitis of left lower limb] 07-29-2023 Episodic Spondylosis; intervertebral disc disorders; other back problems (19 sources) Neck pain; Translations: [Cervicalgia] Episodic Thyroid disorders (5 sources) Multinodular goiter; Translations: [Nontoxic multinodular goiter] 08-08-2023 Chronic Unclassified (4 sources) Encounter for screening mammogram for malignant neoplasm of breast; Translations: [Encounter for screening for malignant neoplasm of colon] Onset: 01-28-2017 Episodic Unclassified (1 source) Unknown / UNK(Unknown) Onset: 01-31-2017 Unclassified (11 sources) history of thyroid biopsy Onset: 10-09-2019 09-28-2021 Viral infection (14 sources) Disease caused by 2019-nCoV; Translations: [COVID-19] Episodic Past or Other Problems Problem Classification Problem Date Documented Da te Episodic/Chronic Malaise and fatigue (2 sources) Other malaise; Translations: [Other fatigue] Onset: 01-28-2017 Episodic Other circulatory disease (1 source) Elevated blood-pressure reading, without diagnosis of hypertension; Translations: [Elevated blood-pressure reading, without diagnosis of hypertension] Onset: 07-02-2024 Episodic Other lower respiratory disease (1 source) Cough; Translations: [Cough] Onset: 01-28-2017 Episodic Unclassified (11 sources) dental laser surgery 09-28-2021 Results Test Name Value Interpretation Reference Range Facility Assistant Professor Of Life Sciences Office Visit Reporton 10-05-2024 Assistant Professor Of Life Sciences Office Visit Report [facility] [address], [address] [place] [address] OFFICE VISIT Date of Service: 10/05/24 MR#: [id number] Acct: [id number] Name: TRINA DAVIS Rep #: [id number] : 1965 Provider: JUAN DIEGO luciano Age/Sex: 59/F Location: [facility] Status: Signed Intake Vital Signs 07/15/24 08:40 09/15/24 10:30 10/05/24 13:18 Height 5 ft 7 in 5 ft 7 in 5 ft 7 in Weight: 178 lb 176 lb 8 oz BMI 27.8 27.6 BP 129/86 H 124/84 H Blood Pressure Location Lt brachial Position Sitting Respiration 16 Pulse 73 Pulse Source Monitor Temp 98.4 F Pulse Oximetry (%) 98 Oxygen Delivery Method room air 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 Required: No Is patient in pain?: No Allergies insect venom (yellow jacket) Allergy (Severe, Verified 10/05/24 13:29) Swelling Sulfa (Sulfonamide Antibiotics) Allergy (Intermediate, Verified 10/05/24 13:29) Hives Medications ???Medication ???Instructions ???Recorded ???Confirmed ???Type ivermectin 1 % topical cream applic topical 08/08/23 10/05/24 H istory (Soolantra) meloxicam 7.5 mg/5 mL oral 7.5 mg PO QDAY 07/15/24 10/05/24 H istory suspension gabapentin 100 mg capsule See Rx Instructions .Route 5 10/05/24 Rx .COMPLEX #180 caps estradiol 0.05 mg/24 hr weekly 1 patch transdermal QWEEK #12 ea 0 10/05/24 10/05/24 Rx transdermal patch Is last menstrual period known: No Post menopausal: Yes Patient : No : No PFSH Medical History (Updated 10/05/24 @ 13:41 by Merary Dodge NUCLEAR EQUIPMENT RESEARCH ENGINEER, NUCLEAR EQUIPMENT RESEARCH ENGINEER-C) Open wound of left lower leg Dog bite of calf Cellulitis of left lower leg Burning mouth syndrome Multinodular goiter Arthritis Symptomatic menopausal or female climacteric states Rosacea Osteoarthritis of both knees Disorder of left rotator cuff Candidal vulvovaginitis Surgical History (Updated 10/05/24 @ 13:41 by Merary Dodge NUCLEAR EQUIPMENT RESEARCH ENGINEER, NUCLEAR EQUIPMENT RESEARCH ENGINEER-C) S/P hysterectomy history of thyroid biopsy ( 10/20/19) dental laser surgery H/O colonoscopy Family History Mother Diabetes Alzheimer's dementia Father Heart disease Diabetes Grandmother Diabetes COPD (chronic obstructive pulmonary disease) Breast cancer Colon cancer Aunt Breast cancer Brother Diabetes Grandfather CVA (cerebral vascular accident) Brother Kidney malignant neoplasm Other Hypertension Social History Smoking Status: Never smoker Electronic Cigarette Use: not used second hand exposure: No alcohol intake: former substance use type: does not use caffeine: Yes what type of physical activity do you participate in: walking seatbelt use: always do you feel safe at home: Yes additional social history: 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 She had estrogen patches left from last visit and went back on them in August. Could not stand the hot flashes, sleep disturbance and brain fog. She is not using the estradiol cream, states does not need it with patches. Last PAP: hyst History of abnormal PAP: no Last mammogram: 09/2024 History of abnormal mammogram: no Colon cancer screenin Other preventative health care screenings: Marco A Female Reproductive History Questions: metorrhagia: No, sexually active: Yes, dyspareunia: No and PCB: No Menopausal Treatment: Yes HRT ROS Const Constitutional: Reports system reviewed and no additional complaints, except as documented Eyes Eyes: Reports system reviewed and no additional complaints, except as documented GI GI: Denies abdominal pain or change in bowel habits : Reports as per HPI Exam Const General: cooperative, healthy appearing, no acute distress and well developed Orientation: alert, oriented to person and oriented to place HENPR Head: normal to inspection Neck Neck: normal visual inspection Thyroid: thyroid normal Lymphatic: no lymphadenopathy noted Chest Breast inspection: normal inspection of the breasts and normal inspection of the axillae Breast palpation: normal palpation of the breasts, normal palpation of the axillae and no axillary lymphadenopathy Resp Effort Inspection: normal respiratory effort GI Palpation: soft, no masses and nontender Rectal Exam: deferred External Female Exam: normal external appearance and normal appearance of the urethra Urethra: normal appearance of the urethra (more content not included)... Normal [facility] Breast imaging reportOrdered By: Charleen Trimble on 09-30-2024 Study report [facility] Imaging Services [address] [place] [address] SCRN MAMM (CAD)W/GEOFF BILVERNON MR#: [id number] Acct: [id number] Name: TRINA DAVIS Rep #: [id number] : 1965 F 59 From: Beau Bloom MD PCP: Dr. Alexander King MD Status: RE G CLI Study:SCRN MAMM (CAD)W/GEOFF BILAT Date of Exa m: 09/30/24 Exam# [id number] Ordering Dr: Merary Dodge NUCLEAR EQUIPMENT RESEARCH ENGINEER NUCLEAR EQUIPMENT RESEARCH ENGINEER-C EXAM: SCRN MAMM (CAD)W/GEOFF BILAT DATE: 09/30/2024 CLINICAL HISTORY: F, Age 59 y/o , SCREEN TECHNIQUE: SCRN MAMM (CAD)W/GEOFF BILAT COMPARISON: Prior exam(s) were compared FINDINGS: TISSUE DENSITY: The breasts are heterogeneously dense, which may obscure small masses. Bilateral Breast Mammographic Findings: No suspicious masses, calcifications or other abnormalities are identified. BI/SCRN MAMM (CAD)W/GEOFF BILAT IMPRESSION: No mammographic evidence of malignancy in either breast. OVERALL FINAL ASSESSMENT BI-RADS 1: NEGATIVE. RECOMMENDATION: Routine annual follow-up in 1 Year A letter with findings and recommendations will be mailed to the patient. Reading Location: [id number] CC: NUCLEAR EQUIPMENT RESEARCH ENGINEER-Anisha Dodge; Dr. Alexander King MD ~ Band Tier: Signed [facility] SCRN MAMM (CAD)W/GEOFF BILATo n 09-30-2024 SCRN MAMM (CAD)W/GEOFF BILAT [facility] Imaging Services [address] [place] [address] SCRN MAMM (CAD)W/GEOFF BILAT MR#: [id number] Acct: [id number] Name: TRINA DAVIS Rep #: [id number] : 1965 F 59 From: Charleen Russell i, MD PCP: Dr. Alexander King MD Status: REG CL Study: SCRN MAMM (CAD)W/GEOFF BILAT Date of Exam: 09/08 07/02 Exam# [id number] Ordering Dr: Merary Dodge NUCLEAR EQUIPMENT RESEARCH ENGINEER NUCLEAR EQUIPMENT RESEARCH ENGINEER -C EXAM: SCRN MAMM (CAD)W/GEOFF BILAT DATE: 09/30/2024 CLINICAL HISTORY: F, Age 59 y/o , SCREEN TECHNIQUE: SCRN MAMM (CAD)W/GEOFF BILAT COMPARISON: Prior exam(s) were compared FINDINGS: TISSUE DENSITY: The breasts are heterogeneously dense, which may obscure small masses. Bilateral Breast Mammographic Findings: No suspicious masses, calcifications or other abnormalities are identified. BI/SCRN MAMM (CAD)W/GEOFF BILAT IMPRESSION: No mammographic evidence of malignancy in either breast. OVERALL FINAL ASSESSMENT BI-RADS 1: NEGATIVE. RECOMMENDATION: Routine annual follow-up in 1 Year A letter with findings and recommendations will be mailed to the patient. Reading Location: [id number] CC: JUAN DIEGO Dodge; Dr. Alexander King MD Band Tier: Signed Normal [facility] Neurology Visit Reporton Neurology Visit Report [facility] [address], [address] [place] [address] OFFICE VISIT Date of Service: 09/15/24 MR#: [id number] Acct: [id number] Name: TRINA DAVIS Rep #: [id number] : 1965 Provider: Dr. Manuel toth MD Age/Sex: 59/F Location: [facility] [place] Status: Signed HPI HPI Chief Complaint: Right breast nipple soreness Details: Interim History: Trina returns for follow-up visit. She has a history of benign thyroid nodules and basal cell skin cancer in the right nasal region status post excision. She began to experience a burning sensation in the mouth in 2019, and this persisted and was prominent until 2020. She denied having dyspepsia. A trial of omeprazole was not of benefit for her oral symptoms. Amitriptyline was initiated for her oral pain and this was of some benefit. In 2020, gabapentin was added for her oral pain and this was of some benefit. She continues to experience oral pain daily though this overall is diminished. She is taking gabapentin 100 mg 1 to 3 capsules nightly. Following initiation of amitriptyline, she began to have oral dyskinesias characterized by pursing of the lips and involuntary tongue movements. Amitriptyline was discontinued in 2020 and benztropine was initiated in 2020 for her oral dyskinesias and her oral dyskinesias diminished moderately. An attempt to increase her dose of benztropine to 1 mg twice daily was not well- tolerated due to a side effect of lower extremity weakness and she resumed benztropine 1 mg daily. Since her oral dyskinesias persisted, benztropine was switched to trihexyphenidyl. Trihexyphenidyl 2 mg twice daily was not of benefit and was discontinued. Her oral dyskinesias have nearly completely resolved and now are very mild and infrequent. She has tried a wearing bite blocks at night for her oral symptoms however it these caused discomfort of her teeth. Amantadine 100 mg twice daily was not of benefit for her oral dyskinesias. She began having daily headaches in February 2021; her headaches were predominantly left-sided occipital headaches that radiated to the left temporal region. These headaches nearly completely resolved following discontinuation of chiropractic therapy which she had pursued for her neck pain; she now has generally mild headaches about 4 days per week and these are localized to the vertex and bilateral occipital region. Acetaminophen and over the counter ibuprofen are of benefit. She has occasional musculoskeletal pain in the knees. This diminished. She uses meloxicam occasionally. Baclofen was of benefit for her musculoskeletal pain however she no longer felt the need to take this medication. Prior to February 2021, she experienced headaches very infrequently. 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 A follow-up head MRI in June 2021 revealed no significant change in the meningioma (1.76 x 1.74 cm). A follow-up head MRI in November 2022 revealed no significant change in the size of the meningioma (1.79 x 1.89 cm in horizontal plane and 2.26 mm in vertical plane). A follow-up head MRI in May 2024 revealed a marginal increase in the size of the meningioma (1.99 x 2.07 cm in horizontal plane and 2.08 cm in vertical plane) compared to her head MRI from November 2022. Physical Exam: Neuro: The patient is awake and alert and responds appropriately; speech is fluent; no oral dyskinesias are noted Heart: Regular rate and rhythm Supplemental Info CBC, CMP, B12, vitamin D, free T4, TSH (09/22/2019): Unremarkable. B12, folate, TSH (03/24/2020): Folate 79.2 (elevated) ESR, Lyme antibody, rheumatoid factor, KAYLEIGH, SS-a/Ro IgG antibody, SS-B/La IgG antibody (07/06/2020): Unremarkable. CMP, zinc (12/07/2020): Zinc 116 (marginally elevated) Head MRI (01/01/2021): FINDINGS: BRAIN AND EXTRA-AXIAL SPACES: 16 x 18 mm lesion along the left cerebellar extra-axial space. Series 11 image 9. There is no underlying cerebellar edema. However, there is mass effect upon the left cerebral hemisphere. No intra- or extra-axial hemorrhage. No evidence of acute infarct. There is preservation of the smith/white matter interface. Ventricles are appropriate for age. No hydrocephalus. Basal cisterns are patent. SELLA: Unremarkable. Normal sella turcica, pituitary gland, infundibular stalk, optic chiasm and hypothalamus. AUDITORY SYSTEM: Unremarkable. The internal auditory canals are patent. BONES/JOINTS: Unremarkable. No discrete lytic or blastic abnormalities. SINUSES: Unremarkable as visualized. Clear. MASTOID AIR CELLS: Unremarkable as visualized. Clear. ORBITS: Unremarkable as visualized. Both globes, extraocular muscles, optic nerves and retrobulbar fat appear unremarkable. VASCULATURE: Unremarkable as visualized. Normal flow voids in the major intracranial circulation. IMPRESSION: Findings suggesting a left (more content not included)... Normal [facility] Assistant Professor Of Life Sciences Office Visit Reporton 07-15-2024 Assistant Professor Of Life Sciences Office Visit Report [facility] [address], [address] [place] [address] OFFICE VISIT Date of Service: 07/15/24 MR#: [id number] Acct: [id number] Name: TRINA DAVIS Rep #: [id number] : 1965 Provider: JUAN DIEGO luciano Age/Sex: 59/F Location: [facility] [place] Status: Signed Intake Vital Signs 10/15/23 11:30 07/13/24 15:13 07/15/24 08:40 Height 5 ft 7 in 5 ft 7 in 5 ft 7 in Weight: 192 lb 191 lb BMI 30.0 29.9 BP 138/92 H 146/86 H Blood Pressure Location Lt brachial Position Sitting Respiration 14 Pulse 79 Pulse Source Monitor Temp 97.6 F L Pulse Oximetry (%) 98 Oxygen Delivery Method room air Intake Visit Reasons: Climacteric symptoms Professional Programmer Analyst Required: No Is patient in pain?: No Allergies insect venom (yellow jacket) Allergy (Severe, Verified 07/15/24 08:39) Swelling Sulfa (Sulfonamide Antibiotics) Allergy (Intermediate, Verified 07/15/24 08:39) Hives Medications ???Medication ???Instructions ???Recorded ???Confirmed ???Type ivermectin 1 % topical cream applic topical 08/08/23 07/15/24 H istory (Soolantra) gabapentin 100 mg capsule See Rx Instructions .Route 4 07/15/24 Rx .COMPLEX #120 caps estradiol 0.01% (0.1 mg/gram) See Rx Instructions vaginal 07/15/24 Rx vaginal cream .COMPLEX #42.5 grams meloxicam 7.5 mg/5 mL oral 7.5 mg PO QDAY 07/15/24 07/15/24 H istory suspension Is last menstrual period known: No Post menopausal: Yes Patient : No : No Control Method: hysterectomy [facility] Medical History (Updated 07/15/24 @ 09:01 by Merary Dodge NUCLEAR EQUIPMENT RESEARCH ENGINEER, NUCLEAR EQUIPMENT RESEARCH ENGINEER-C) Open wound of left lower leg Dog bite of calf Cellulitis of left lower leg Burning mouth syndrome Multinodular goiter Arthritis Symptomatic menopausal or female climacteric states Rosacea Osteoarthritis of both knees Lump of breast Disorder of left rotator cuff Candidal vulvovaginitis Surgical History history of thyroid biopsy ( 10/20/19) dental laser surgery History of total abdominal hysterectomy History of bilateral ligation of fallopian tubes H/O colonoscopy Family History Mother Diabetes Alzheimer's dementia Father Heart disease Diabetes Grandmother Diabetes COPD (chronic obstructive pulmonary disease) Breast cancer Colon cancer Aunt Breast cancer Brother Diabetes Grandfather CVA (cerebral vascular accident) Brother Kidney malignant neoplasm Other Hypertension Social History Smoking Status: Never smoker Electronic Cigarette Use: not used second hand exposure: No alcohol intake: former substance use type: does not use caffeine: Yes what type of physical activity do you participate in: walking seatbelt use: always do you feel safe at home: Yes additional social history: 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 When seen for annual in September 2023 was instructed to start weaning off estradiol patch. She has now been off of it for 6 months. States last 2 months symptoms worsening. She has slept better last 2 nights because she has increased her dosage of gabapentin. She avoids medications for anxiety due to increases involuntary movements with sleep. Recent thyroid panel normal. History 0 Elective abortions Hx Para Spontaneous abortions Hx # Term Pregnancies Ectopic pregnancies Hx # Pregnancies Multiple births # of living children ROS Const Constitutional: Reports as per HPI : Reports as per HPI Exam Const General: cooperative and no acute distress Orientation: oriented x3 HENMT Head: normal to inspection and normocephalic Eyes General: appearance normal, both eyes and all related structures Neck Neck: normal visual inspection Resp Effort Inspection: normal respiratory effort Neuro Cognition: normal cognition Speech: speech normal Psych Appearance: grossly normal Mood: congruent mood Affect: normal affect Speech and Movement: speech and movement normal Attitude: cooperative Judgment: judgment good Coding Level of Care Code Off vis,est,level 3 Diagnoses Menopausal and female climacteric states N95.1 Hot flashes due to menopause N95.1 Dyspareunia Assessment and Plan Assessment and Plan (1) Menopausal and female climacteric states: Status: Acute (2) Hot flashes due to menopause: Status: Acute (3) Dyspareunia: Status: Acute Orders: Orders SCRN MAMM (CAD)W/GEOFF BILAT Today N95.1 - Menopausal and female climacteric states Medic (more content not included)... Normal [facility] Absolute lymphocyte countOrd ered By: Alexander King on 06-22-2024 Lymphocytes Auto (Unsp spec) [#/Vol] 2.25 10*3/uL 0.83-4.[address] [facility] Absolute neutrophil countOrd ered By: Alexander King on 06-22-2024 Neutrophils (Bld) [#/Vol] 4.6 10*3/uL 2.0-7.[address] [facility] Anion gap in Serum or Plasma Ordered By: Alexander King on 06-22-2024 Anion gap [Moles/Vol] 12 mmol/L 07-22 [facility] Automated lymphocyte count a s percentage of total leukocytesOrdered By: Alexander King on 06-22-2024 Lymphocytes/100 WBC Auto (Unsp spec) 29.9 % [facility] BUN/creatinine ratioOrdered By: Alexander King on 06-22-2024 Urea nitrogen/Creatinine [Mass ratio] 27.9 mg/mg High 10- [facility] Basophil percentageOrdered B y: Alexander King on 06-22-2024 Basophils/100 WBC (Bld) 0.4 % 0-1 [facility] Bilirubin Test strip Ql (U)O rdered By: Alexander King on 06-22-2024 Bilirubin Ql (U) Negative Negative [facility] Bilirubin, totalOrdered By: Alexander King on 06-22-2024 Bilirubin [Mass/Vol] 0.35 mg/dL 0.00-1.30 [facility] CBC W/Diff, Automatedon 06-08 Absolute Lymph 2.25 X10 3/uL Normal 0.83-4.[address] [facility] Comment on above: Order Comment: Order Date: 06/22/24 Order Info: 0184-1 - CBCD Performed By: #### L 501.5200, L100.0100, L500.4050 #### [facility] Laboratory [address] [place], [address] Absolute Neut 4.6 X10 3/uL Normal 2.0-7.[address] [facility] Comment on above: Order Comment: Order Date: 06/22/24 Order Info: 0184-1 - CBCD Performed By: #### L 501.5200, L100.0100, L500.4050 #### [facility] [address] [place], [address] Basophils/100 WBC (Bld) 0.4 % Normal 0-1 [facility] Comment on above: Order Comment: Order Date: 06/22/24 Order Info: 0184-1 - CBCD Performed By: #### L 501.5200, L100.0100, L500.4050 #### [facility] [address] [place], [address] Eosinophils/100 WBC (Bld) 2.8 % Normal 0-[address] [facility] Comment on above: Order Comment: Order Date: 06/22/24 Order Info: 0184-1 - CBCD Performed By: #### L 501.5200, L100.0100, L500.4050 #### [facility] [address] [place], [address] Erythrocyte distribution width (RBC) [Ratio] 12.0 % Normal 11.6-14.[address] [facility] Comment on above: Order Comment: Order Date: 06/22/24 Order Info: 0184- - CBCD Performed By: #### L 501.5200, L100.0100, L500.4050 #### [facility] [address] [place], [address] Hematocrit (Bld) [Volume fraction] 42.5 % Normal 37-[address] [facility] Comment on above: Order Comment: Order Date: 06/22/24 Order Info: 0184-1 - CBCD Performed By: #### L 501.5200, L100.0100, L500.4050 #### [facility] [address] [place], [address] Hemoglobin (Bld) [Mass/Vol] 14.6 g/dL Normal 12.0-15.[address] [facility] Comment on above: Order Comment: Order Date: 06/22/24 Order Info: 0184-1 - CBCD Performed By: #### L 501.5200, L100.0100, L500.4050 #### [facility] [address] [place], [address] IG% 0.300 Normal 0.0-0.[address] [facility] Comment on above: Order Comment: Order Date: 06/22/24 Order Info: 0184-1 - CBCD Result Comment: IG% - Immature Granulocytes (promyelocytes, myelocytes and metamyelocytes) > 1% indicates that a LEFT SHIFT is Present. Performed By: #### L 501.5200, L100.0100, L500.4050 #### [facility] [address] [place], [address] Lymphocytes/100 WBC (Bld) 29.9 % Normal 19-[address] [facility] Comment on above: Order Comment: Order Date: 06/22/24 Order Info: 0184-1 - CBCD Performed By: #### L 501.5200, L100.0100, L500.4050 #### [facility] [address] [place], [address] MCH (RBC) [Entitic mass] 31.7 pg Normal 27.0-32.[address] [facility] Comment on above: Order Comment: Order Date: 06/22/24 Order Info: 0184-1 - CBCD Performed By: #### L 501.5200, L100.0100, L500.4050 #### [facility] [address] [place], [address] MCHC (RBC) [Mass/Vol] 34.4 g/dL Normal 32-36 [facility] Comment on above: Order Comment: Order Date: 06/22/24 Order Info: 0184-1 - CBCD Performed By: #### L 501.5200, L100.0100, L500.4050 #### [facility] [address] [place], [address] MCV (RBC) [Entitic vol] 92.2 fL Normal 81-99 [facility] Comment on above: Order Comment: Order Date: 06/22/24 Order Info: 0184-1 - CBCD Performed By: #### L 501.5200, L100.0100, L500.4050 #### [facility] [address] [place], [address] Monocytes/100 WBC (Bld) 5.7 % Normal 0-10 [facility] Comment on above: Order Comment: Order Date: 06/22/24 Order Info: 0184-1 - CBCD Performed By: #### L 501.5200, L100.0100, L500.4050 #### [facility] [address] [place], [address] Neutrophils/100 WBC (Bld) 60.9 % Normal 47-[address] [facility] Comment on above: Order Comment: Order Date: 06/22/24 Order Info: 0184-1 - CBCD Performed By: #### L 501.5200, L100.0100, L500.4050 #### [facility] [address] [place], [address] Nucleated RBC (Bld) [#/Vol] 0 10*3/uL Normal 0-[address] [facility] Comment on above: Order Comment: Order Date: 06/22/24 Order Info: 0184-1 - CBCD Performed By: #### L 501.5200, L100.0100, L500.4050 #### [facility] [address] [place], [address] Platelet mean volume (Bld) [Entitic vol] 10.0 fL Normal 6.2-12.[address] [facility] Comment on above: Order Comment: Order Date: 06/22/24 Order Info: 0184-1 - CBCD Performed By: #### L 501.5200, L100.0100, L500.4050 #### [facility] [address] [place], [address] Platelets (Bld) [#/Vol] 242 10*3/uL Normal 150-[address] [facility] Comment on above: Order Comment: Order Date: 06/22/24 Order Info: 0184-1 - CBCD Performed By: #### L 501.5200, L100.0100, L500.4050 #### [facility] [address] [place], [address] RBC (Bld) [#/Vol] 4.61 10*6/uL Normal 4.2-5.4 [facility] Comment on above: Order Comment: Order Date: 06/22/24 Order Info: 0184-1 - CBCD Performed By: #### L 501.5200, L100.0100, L500.4050 #### [facility] [address] [place], [address] RDW SD 41.0 fl Normal 35.1-43.[address] [facility] Comment on above: Order Comment: Order Date: 06/22/24 Order Info: 0184- - CBCD Performed By: #### L 501.5200, L100.0100, L500.4050 #### [facility] [address] [place], [address] WBC (Bld) [#/Vol] 7.5 10*3/uL Normal 4.4-11.0 [facility] Comment on above: Order Comment: Order Date: 06/22/24 Order Info: 0184- - CBCD Performed By: #### L 501.5200, L100.0100, L500.4050 #### [facility] [address] [place], [address] Carbon dioxide, total [Moles /volume] in Central venous bloodOrdered By: Alexander King on 06-22-2024 CO2 [Moles/Vol] 25.3 mmol/L 21.0-32.[address] [facility] Chloride assayOrdered By: Scarlet King on 06-22-2024 Chloride [Moles/Vol] 103 mmol/L 98-108 [facility] Comprehensive Metabolic Prof ilon 06-22-2024 Albumin [Mass/Vol] 4.5 g/dL Normal 3.4-4.8 [facility] Comment on above: Order Comment: Order Date: 06/22/24 Order Info: 0786-1 - CMP Order Info: [id number] - MG Performed By: #### L 501.5200, L100.0100, L500.4050 #### [facility] [address] [place], [address] Albumin/Globulin [Mass ratio] 1.8 {ratio} Normal 0.9-2.[address] [facility] Comment on above: Order Comment: Order Date: 06/22/24 Order Info: 0786-1 - CMP Order Info: [id number] - MG Performed By: #### L 501.5200, L100.0100, L500.4050 #### [facility] [address] [place], [address] ALK PHOS 54 U/L Normal 35-[address] [facility] Comment on above: Order Comment: Order Date: 06/22/24 Order Info: 0786-1 - CMP Order Info: [id number] - MG Performed By: #### L 501.5200, L100.0100, L500.4050 #### [facility] [address] [place], [address] ALT [Catalytic activity/Vol] 25 U/L Normal <=[address] [facility] Comment on above: Order Comment: Order Date: 06/22/24 Order Info: 0786-1 - CMP Order Info: [id number] - MG Performed By: #### L 501.5200, L100.0100, L500.4050 #### [facility] [address] [place], [address] AST [Catalytic activity/Vol] 22 U/L Normal <=[address] [facility] Comment on above: Order Comment: Order Date: 06/22/24 Order Info: 0786-1 - CMP Order Info: [id number] - MG Performed By: #### L 501.5200, L100.0100, L500.4050 #### [facility] [address] [place], [address] Bilirubin [Mass/Vol] 0.35 mg/dL Normal 0.00-1.30 [facility] Comment on above: Order Comment: Order Date: 06/22/24 Order Info: 0786-1 - CMP Order Info: [id number] - MG Performed By: #### L 501.5200, L100.0100, L500.4050 #### [facility] [address] [place], [address] BUN/CRE 27.9 RATIO High 10-[address] [facility] Comment on above: Order Comment: Order Date: 06/22/24 Order Info: 0786-1 - CMP Order Info: [id number] - MG Performed By: #### L 501.5200, L100.0100, L500.4050 #### [facility] [address] [place], [address] Calcium [Mass/Vol] 10.2 mg/dL Normal 7.6-11.0 [facility] Comment on above: Order Comment: Order Date: 06/22/24 Order Info: 0786-1 - CMP Order Info: [id number] - MG Performed By: #### L 501.5200, L100.0100, L500.4050 #### [facility] [address] [place], [address] Chloride [Moles/Vol] 103 mmol/L Normal 98-108 [facility] Comment on above: Order Comment: Order Date: 06/22/24 Order Info: 0786-1 - CMP Order Info: [id number] - MG Performed By: #### L 501.5200, L100.0100, L500.4050 #### [facility] [address] [place], [address] CO2 [Moles/Vol] 25.3 mmol/L Normal 21.0-32.[address] [facility] Comment on above: Order Comment: Order Date: 06/22/24 Order Info: 0786-1 - CMP Order Info: [id number] - MG Performed By: #### L 501.5200, L100.0100, L500.4050 #### [facility] [address] [place], [address] Creatinine [Mass/Vol] 0.78 mg/dL Normal 0.70-1.20 [facility] Comment on above: Order Comment: Order Date: 06/22/24 Order Info: 0786-1 - CMP Order Info: [id number] - MG Performed By: #### L 501.5200, L100.0100, L500.4050 #### [facility] [address] [place], [address] GAP 12 Normal 5-[address] [facility] Comment on above: Order Comment: Order Date: 06/22/24 Order Info: 0786-1 - CMP Order Info: [id number] - MG Performed By: #### L 501.5200, L100.0100, L500.4050 #### [facility] [address] [place], [address] GFR/1.73 sq M.predicted among non-blacks MDRD (S/P/Bld) [Vol rate/Area] 86 mL/min/{1.73_m2} Normal >[address] [facility] Comment on above: Order Comment: Order Date: 06/22/24 Order Info: 0786-1 - CMP Order Info: [id number] - MG Result Comment: mL/m in/1.73m2 CKD-EPI Creatinine Equation (2020) Performed By: #### L 501.5200, L100.0100, L500.4050 #### [facility] [address] [place], [address] Globulin (S) [Mass/Vol] 2.5 g/dL Normal 2.2-4.2 [facility] Comment on above: Order Comment: Order Date: 06/22/24 Order Info: 0786-1 - CMP Order Info: [id number] - MG Performed By: #### L 501.5200, L100.0100, L500.4050 #### [facility] [address] [place], [address] Glucose [Mass/Vol] 87 mg/dL Normal 70-99 [facility] Comment on above: Order Comment: Order Date: 06/22/24 Order Info: 0786-1 - CMP Order Info: [id number] - MG Performed By: #### L 501.5200, L100.0100, L500.4050 #### [facility] [address] [place], [address] Potassium [Moles/Vol] 3.8 mmol/L Normal 3.3-5.1 [facility] Comment on above: Order Comment: Order Date: 06/22/24 Order Info: 0786-1 - CMP Order Info: [id number] - MG Performed By: #### L 501.5200, L100.0100, L500.4050 #### [facility] [address] [place], [address] Sodium [Moles/Vol] 140 mmol/L Normal 133-145 [facility] Comment on above: Order Comment: Order Date: 06/22/24 Order Info: 0786-1 - CMP Order Info: [id number] - MG Performed By: #### L 501.5200, L100.0100, L500.4050 #### [facility] [address] [place], [address] T PROT 6.9 g/dL Normal 5.9-8.[address] [facility] Comment on above: Order Comment: Order Date: 06/22/24 Order Info: 0786-1 - CMP Order Info: [id number] - MG Performed By: #### L 501.5200, L100.0100, L500.4050 #### [facility] [address] [place], [address] Urea nitrogen [Mass/Vol] 22 mg/dL High 4-[address] [facility] Comment on above: Order Comment: Order Date: 06/22/24 Order Info: [id number] - CMP Order Info: [id number] - MG Performed By: #### L 501.5200, L100.0100, L500.4050 #### [facility] [place], [address] Eosinophil percentageOrdered By: Alexander King on 06-22-2024 Eosinophils/100 WBC (Bld) 2.8 % 0-[address] [facility] Epithelial cells.squamous LM Ql (Urine sed)Ordered By: Alexander King on 06-22-2024 Epithelial cells.squamous LM.HPF (Urine sed) [#/Area] 0 /[HPF] 5-[address] [facility] Erythrocyte distribution wid th (RBC) [Ratio]Ordered By: Alexander King on 06-22-2024 Erythrocyte distribution width (RBC) [Entitic vol] 41.0 fL 35.1-43.[address] [facility] Erythrocyte distribution wid th ratioOrdered By: Alexander King on 06-22-2024 Erythrocyte distribution width (RBC) [Ratio] 12.0 % 11.6-14.[address] [facility] Erythrocyte distribution wid th standard deviationOrdered By: Alexander King on 06-22-2024 Erythrocyte distribution width (RBC) [Ratio] 41.0 fl 35.1-43.[address] [facility] GFR/1.73 sq M.predicted christiano g non-blacks MDRD (S/P/Bld) [Vol rate/Area]Ordered By: Alexander King on 06-22-2024 Estimated GFR (MDRD) Non-Af Amer 86 >[address] [facility] Comment on above: mL/min/1.73m2 CKD-EP I Creatinine Equation (2020) Glomerular filtration rate ( GFR) estimation/1.73 sq m using serum, plasma, or whole bOrdered By: Alexander King on 06-22-2024 GFR/1.73 sq M.predicted among non-blacks MDRD (S/P/Bld) [Vol rate/Area] 86 mL/min/{1.73_m2} >[address] [facility] Comment on above: mL/min/1.73m2 CKD-EP I Creatinine Equation (2020) Glucose Ql (U)Ordered By: Scarlet King on 06-22-2024 Urine Glucose (UA) Normal mg/dl Normal [facility] Hematocrit Auto (Bld) [Volum e fraction]Ordered By: Alexander King on 06-22-2024 Hematocrit (Bld) [Volume fraction] 42.5 % 37-[address] [facility] Hemoglobin measurementOrdere d By: Alexander King on 06-22-2024 Hemoglobin (Bld) [Mass/Vol] 14.6 g/dL 12.0-15.[address] [facility] Immature granulocytes/100 WB C Auto (Bld)Ordered By: Alexander King on 06-22-2024 Immature granulocytes/100 WBC (Bld) 0.300 % 0.0-0.[address] [facility] Comment on above: IG% - Immature Granu locytes (promyelocytes, myelocytes and metamyelocytes) > 1% indicates that a LEFT SHIFT is Present. Ketones Test strip Ql (U)Ord ered By: Alexander King on 06-22-2024 Ketones Ql (U) Negative Negative [facility] - Chemistry and C hemistry - challengeOrdered By: Alexander King on 06-22-2024 AST [Catalytic activity/Vol] 22 U/L <[address] [facility] Lymphocytes Auto (Unsp spec) [#/Vol]Ordered By: Alexander King on 06-22-2024 Lymphocytes (Bld) [#/Vol] 2.25 10*3/uL 0.83-4.[address] [facility] Lymphocytes/100 WBC Auto (Un sp spec)Ordered By: Alexander King on 06-22-2024 Lymphocytes/100 WBC (Bld) 29.9 % 19-[address] [facility] MCV (mean corpuscular volume ) determinationOrdered By: Alexander King on 06-22-2024 MCV (RBC) [Entitic vol] 92.2 fL 81-99 [facility] Magnesiumon 06-22-2024 Magnesium [Mass/Vol] 2.4 mg/dL High 1.5-2.2 [facility] Comment on above: Order Comment: Order Date: 06/22/24 Order Info: [id number] - CMP Order Info: [id number] - MG Performed By: #### L 501.5200, L100.0100, L500.4050 #### [facility] [address] [place], [address] Magnesium (Unsp spec) [Mass/ Vol]Ordered By: Alexander King on 06-22-2024 Magnesium [Mass/Vol] 2.4 mg/dL High 1.5-2.2 [facility] Magnesium measurement (mass/ volume)Ordered By: Alexander King on 06-22-2024 Magnesium (Unsp spec) [Mass/Vol] 2.4 mg/dL High 1.5-2.[address] [facility] Mean corpuscular hemoglobin (MCH) determinationOrdered By: Alexander King on 06-22-2024 MCH (RBC) [Entitic mass] 31.7 pg 27.0-32.[address] [facility] Mean corpuscular hemoglobin concentration (MCHC) determinationOrdered By: Alexander King on 06-22-2024 MCHC (RBC) [Mass/Vol] 34.4 g/dL 32-36 [facility] Mean platelet volume determi nationOrdered By: Alexander King on 06-22-2024 Platelet mean volume (Bld) [Entitic vol] 10.0 fL 6.2-12.[address] [facility] Microscopic analysis of urin e for red blood cells (RBC)Ordered By: Alexander King on 06-22-2024 Microscopic analysis of urine for red blood cells (RBC) 0-5 SEEN /hpf 0-[address] [facility] Urine RBC 0-5 SEEN /hpf 0-[address] [facility] Monocyte percentageOrdered B y: Alexander King on 06-22-2024 Monocytes/100 WBC (Bld) 5.7 % 0-10 [facility] Mucus LM Ql (Urine sed)Order ed By: Alexander King on 06-22-2024 Mucus Ql (Urine sed) 0 SEEN /hpf [facility] Neutrophil percentageOrdered By: Alexander King on 06-22-2024 Neutrophils/100 WBC (Bld) 60.9 % 47-[address] [facility] Nitrite Test strip Ql (U)Ord ered By: Alexander King on 06-22-2024 Nitrite Ql (U) Negative Negative [facility] Nucleated red blood cell per centageOrdered By: Alexander King on 06-22-2024 Nucleated RBC/100 WBC (Bld) [Ratio] 0 % 0-[address] [facility] Platelet countOrdered By: Scarlet King on 06-22-2024 Platelets (Bld) [#/Vol] 242 10*3/uL 150-[address] [facility] Potassium (Unsp spec) [Mass/ Vol]Ordered By: Alexander King on 06-22-2024 Potassium [Moles/Vol] 3.8 mmol/L 3.3-5.1 [facility] Potassium measurement (mass/ volume)Ordered By: Alexander King on 06-22-2024 Potassium (Unsp spec) [Mass/Vol] 3.8 mmol/L 3.3-5.[address] [facility] Protein Test strip Ql (U)Ord ered By: Alexander King on 06-22-2024 Protein Ql (U) 15 mg/dl High Negative [facility] RBC Auto (Bld) [#/Vol]Ordere d By: Alexander King on 06-22-2024 RBC (Bld) [#/Vol] 4.61 10*6/uL 4.2-5.4 [facility] Serum creatinine measurement (mass/volume)Ordered By: Alexander King on 06-22-2024 Creatinine [Mass/Vol] 0.78 mg/dL 0.70-1.20 [facility] Serum globulin measurementOr dered By: Alexander King on 06-22-2024 Globulin (S) [Mass/Vol] 2.5 g/dL 2.2-4.2 [facility] Serum glucose measurement (m ass/volume)Ordered By: Alexander King on 06-22-2024 Glucose [Mass/Vol] 87 mg/dL 70-99 [facility] Serum or plasma alanine linton otransferase (ALT) measurementOrdered By: Alexander King on 06-22-2024 ALT [Catalytic activity/Vol] 25 U/L <[address] [facility] Serum or plasma albumin camilla urement (mass/volume)Ordered By: Alexander King on 06-22-2024 Albumin [Mass/Vol] 4.5 g/dL 3.4-4.8 [facility] Serum or plasma albumin/glob ulin mass ratioOrdered By: Alexander King on 06-22-2024 Albumin/Globulin [Mass ratio] 1.8 {ratio} 0.9-2.[address] [facility] Serum or plasma alkaline zonia sphatase measurementOrdered By: Alexander King on 06-22-2024 ALP [Catalytic activity/Vol] 54 U/L 35-[address] [facility] Serum or plasma calcium camilla urement (mass/volume)Ordered By: Alexander King on 06-22-2024 Calcium [Mass/Vol] 10.2 mg/dL 7.6-11.0 [facility] Serum or plasma urea nitroge n measurement (mass/volume)Ordered By: Alexander King on 06-22-2024 Urea nitrogen [Mass/Vol] 22 mg/dL High 4-[address] [facility] Sodium levelOrdered By: Alexander King on 06-22-2024 Sodium [Moles/Vol] 140 mmol/L 133-145 [facility] Squamous epithelial cells de tection in urine sediment by light microscopyOrdered By: Alexander King on 06-22-2024 Epithelial cells.squamous LM Ql (Urine sed) 0-5 SEEN /hpf 07-[address] [facility] Total proteinOrdered By: Ru King on 06-22-2024 Protein [Mass/Vol] 6.9 g/dL 5.9-8.4 [facility] Urinalysis, Completeon 06-22 EPI,SQUAMOUS 0-5 SEEN Normal 07-[address] [facility] Comment on above: Order Comment: Urine , Random Performed By: #### L 506.1001, L400.0001 #### [facility] [address] [place], [address] RBC 0-5 SEEN Normal 0-[address] [facility] Comment on above: Order Comment: Urine , Random Performed By: #### L 506.1001, L400.0001 #### [facility] [address] [place], [address] WBC 0-5 SEEN Normal 0-[address] [facility] Comment on above: Order Comment: Urine , Random Performed By: #### L 506.1001, L400.0001 #### [facility] [address] [place], [address] BACTERIA 0 SEEN Normal None Seen [facility] Comment on above: Order Comment: Urine , Random Performed By: #### L 506.1001, L400.0001 #### [facility] [address] [place], [address] Mucus Ql (Urine sed) [address] [facility] Comment on above: Order Comment: Urine , Random Performed By: #### L 506.1001, L400.0001 #### [facility] [address] [place], [address] Urine blood detectionOrdered By: Alexander King on 06-22-2024 Urine Occult Blood Negative Negative [facility] Urine clarityOrdered By: Ru King on 06-22-2024 Clarity (U) Clear Clear [facility] Urine color determinationOrd ered By: Alexander King on 06-22-2024 Color (U) Yellow Yellow [facility] Urine glucose detectionOrder ed By: Alexander King on 06-22-2024 Glucose Ql (U) Normal mg/dl Normal [facility] Urine leukocyte esterase det ection by dipstickOrdered By: Alexander King on 06-22-2024 Leukocyte esterase Test strip Ql (U) Negative Negative [facility] Urine pHOrdered By: Alexander polk on 06-22-2024 pH (U) 6.5 [pH] 5.0 - 8.[address] [facility] Urine sediment bacteria coun t by microscopy (number/high power field)Ordered By: Alexander King on 06-22-2024 Bacteria LM.HPF (Urine sed) [#/Area] 0 /[HPF] None Seen [facility] Urine specific gravity measu rementOrdered By: Alexander King on 06-22-2024 Specific gravity (U) [Rel density] 1.010 1.002-1.[address] [facility] Urine urobilinogen measureme ntOrdered By: Alexander King on 06-22-2024 Urobilinogen Ql (U) Normal mg/dl Normal [facility] Urobilinogen Ql (U)Ordered B y: Alexander King on 06-22-2024 Urine Urobilinogen Normal mg/dl Normal [facility] Vitamin D, 25-hydroxyOrdered By: Alexander King on 06-22-2024 Vitamin D 25-Hydroxy 32.1 ng/mL 30-100 [facility] Comment on above: Vitamin D StatusDefi ciency: <20 ng/mL (50nmol/L)Insufficiency: 20-30 ng/mL (50-75 nmol/L)Sufficiency: 30-100 ng/mL (75-250 nmol/L)Toxicity: >100 ng/mL (>250 nmol/L) Vitamin D,25 Hydroxyon 06-22 Vitamin D 25-OH 32.1 ng/mL Normal 30-[address] [facility] Comment on above: Order Comment: Order Date: 06/22/24 Order Info: 0786-1 - CMP Order Info: [id number] - MG Result Comment: Pina min D Status Deficiency: <20 ng/mL (50nmol/L) Insufficiency: 20-30 ng/mL (50-75 nmol/L) Sufficiency: 30-100 ng/mL (75-250 nmol/L) Toxicity: >100 ng/mL (>250 nmol/L) Performed By: #### L 506.1001, L400.0001 #### [facility] [address] [place], [place], [address] White blood cell (WBC) count Ordered By: Alexander King on 06-22-2024 WBC (Bld) [#/Vol] 7.5 10*3/uL 4.4-11.0 [facility] White blood cell countOrdere d By: Alexander King on 06-22-2024 Urine WBC 0-5 SEEN /hpf 0-[address] [facility] White blood cell count 0-5 SEEN /hpf 0-[address] [facility] Brain W/WO Contraston 2024 Brain W/WO Contrast [facility] [address] [place] [address] Brain W/WO Contrast MR#: [id number] Acct: [id number] Name: TRINA DAVIS Rep #: [id number] : 1965 F 59 From: Alexander Alegria PCP: Dr. Alexander King MD Status: REG CLI Study: Brain W/WO Contrast Date of Exam: 05/24/24 Exam# [id number] Ordering Dr: Manuel Henderson MD PROCEDURE: BRAIN W/WO CONTRAST REASON FOR EXAM: FOLLOW-UP MENINGIOMA TECHNIQUE: Multiplanar, multisequence MRI of the brain performed with intravenous gadolinium-based contrast. CONTRAST: 18 cc Clariscan COMPARISON: 11/2022 FINDINGS: Extra-axial lesion again detected measuring 19 x 20 mm with enhancement who with imaging characteristics of a meningioma. This has not changed. This abuts the left cerebellar hemisphere and is located just below the tentorium. No midline shift. No mass effect. No acute infarct. No acute hemorrhage. Mastoid air cells and paranasal sinuses otherwise clear MRI/Brain W/WO Contrast IMPRESSION: Stable left posterior fossa meningioma Reading Location: [facility] CC: Dr. Alexander King MD; Dr. Manuel Henderson MD Band Tier: Signed Normal [facility] Magnetic resonance imaging r eportOrdered By: Alexander Mary on 05-24-2024 Study report [facility] Services [address] [place] [address] Brain W/WO Contrast MR#: [id number] Acct: [id number] Name: TRINA DAVIS Rep #: [id number] : 1965 F 59 From: Ru Mary MD PCP: Dr. Alexander King MD Status: RE G CLI Study:Brain W/WO Contrast Date of Exam: 05/24/24 Exam# [id number] Ordering Dr: Manuel Henderson MD PROCEDURE: BRAIN W/WO CONTRAST REASON FOR EXAM: FOLLOW-UP MENINGIOMA TECHNIQUE: Multiplanar, multisequence MRI of the brain performed with intravenous gadolinium-based contrast. CONTRAST: 18 cc Clariscan COMPARISON: 11/2022 FINDINGS: Extra-axial lesion again detected measuring 19 x 20 mm with enhancement who withimaging characteristics of a meningioma. This has not changed. This abuts the left cerebellar hemisphere and is located just below the tentorium. No midline shift. No mass effect. No acute infarct. No acute hemorrhage. Mastoid air cells and paranasal sinuses otherwise clear MRI/Brain W/WO Contrast IMPRESSION: Stable left posterior fossa meningioma Reading Location: [facility] CC: Dr. Alexander King MD; Dr. Manuel Henderson MD ~ Band Tier: Signed [facility] Absolute lymphocyte countOrd ered By: Alexander King on 05-29-2023 Lymphocytes Auto (Unsp spec) [#/Vol] 2.34 10*3/uL 0.83-4.[address] [facility] Automated lymphocyte count a s percentage of total leukocytesOrdered By: Alexander King on 05-29-2023 Lymphocytes/100 WBC Auto (Unsp spec) 30.0 % 19-[address] [facility] Basophil percentageOrdered B y: Alexander King on 05-29-2023 Basophil percentage 0 SEEN /hpf 0-5 [facility] Basophils/100 WBC (Bld) 0.5 % 0-1 [facility] Bilirubin [Mass/Vol] 0.40 mg/dL 0.20-1.00 [facility] Comment on above: For patients on eltr ombopag therapy, use of Dimension [place] TBIL is not recommended. Chloride [Moles/Vol] 108 mmol/L 98-107 [facility] Cholesterol [Mass/Vol] 253 mg/dL <200 [facility] Comment on above: <200 mg/dL Desirable 200-240 mg/dL Borderline >240 mg/dL High Risk Eosinophils/100 WBC (Bld) 2.3 % 0-[address] [facility] Glucose [Mass/Vol] 88 mg/dL 74-106 [facility] Hemoglobin (Bld) [Mass/Vol] 14.7 g/dL 12.0-15.[address] [facility] Monocytes/100 WBC (Bld) 6.0 % 0-10 [facility] Neutrophils (Bld) [#/Vol] 4.8 10*3/uL 2.0-7.[address] [facility] Neutrophils/100 WBC (Bld) 60.9 % 47-[address] [facility] Potassium [Moles/Vol] 4.0 mmol/L 3.5-5.1 [facility] Protein [Mass/Vol] 6.9 g/dL 6.4-8.2 [facility] Sodium [Moles/Vol] 140 mmol/L 136-145 [facility] Triglyceride [Mass/Vol] 117 mg/dL <199 [facility] Comment on above: The drugs N-Acetylcy steine and Metamizole may falsely depress this assay.Serum Triglycerides Reference Interval Normal <150 mg/dL Borderline high 150 - 199 mg/dL High 200 - 499 mg/dL Very High > or = 500 mg/dL WBC (Bld) [#/Vol] 7.8 10*3/uL 4.4-11.0 [facility] Bilirubin Test strip Ql (U)O rdered By: Alexander King on 05-29-2023 Bilirubin Ql (U) Negative Negative [facility] Determination of erythrocyte mean corpuscular volume (MCV)Ordered By: Alexander King on 05-29-2023 MCV (RBC) [Entitic vol] 93.1 fL 81-99 [facility] Erythrocyte distribution wid th ratioOrdered By: Alexander King on 05-29-2023 Erythrocyte distribution width (RBC) [Ratio] 11.8 % 11.6-14.[address] [facility] Erythrocyte distribution wid th standard deviationOrdered By: Alexander King on 05-29-2023 Erythrocyte distribution width (RBC) [Entitic vol] 40.3 fL 35.1-43.[address] [facility] Hematocrit Auto (Bld) [Volum e fraction]Ordered By: Alexander King on 05-29-2023 Hematocrit (Bld) [Volume fraction] 43.2 % 37-[address] [facility] Immature granulocytes/100 WB C Auto (Bld)Ordered By: Alexander King on 05-29-2023 Immature granulocytes/100 WBC (Bld) 0.300 % 0.0-0.[address] [facility] Comment on above: IG% - Immature Granu locytes (promyelocytes, myelocytes and metamyelocytes) > 1% indicates that a LEFT SHIFT is Present. Ketones Test strip Ql (U)Ord ered By: Alexander King on 05-29-2023 Ketones Ql (U) 5 mg/dl Negative [facility] - Chemistry and C hemistry - challengeOrdered By: Alexander King on 05-29-2023 Albumin/Globulin [Mass ratio] 1.2 {ratio} 0.9-2.[address] [facility] ALP [Catalytic activity/Vol] 52 U/L 45-[address] [facility] ALT [Catalytic activity/Vol] 29 U/L 13-[address] [facility] Cholesterol in HDL [Mass/Vol] 84 mg/dL >[address] [facility] Comment on above: The drugs N-Acetylcy steine and Metamizole may falsely depress this assay. Reference Range HDL <40 mg/dL Low HDL Cholesterol HDL >or= 60 mg/dL High HDL Cholesterol Cholesterol in LDL [Mass/Vol] 146 mg/dL 0-[address] [facility] CO2 [Moles/Vol] 27.0 mmol/L 21.0-32.[address] [facility] Globulin (S) [Mass/Vol] 3.2 g/dL 2.2-4.2 [facility] Magnesium [Mass/Vol] 2.3 mg/dL 1.6-2.6 [facility] Urea nitrogen/Creatinine [Mass ratio] 23.8 mg/mg 10-[address] [facility] - Hematology and Cell countsOrdered By: Alexander King on 05-29-2023 MCH (RBC) [Entitic mass] 31.7 pg 27.0-32.[address] [facility] MCHC (RBC) [Mass/Vol] 34.0 g/dL 32-36 [facility] Nucleated RBC/100 WBC (Bld) [Ratio] 0 % 0-[address] [facility] Platelet mean volume (Bld) [Entitic vol] 10.0 fL 6.2-12.[address] [facility] Platelets (Bld) [#/Vol] 247 10*3/uL 150-[address] [facility] Mucus LM Ql (Urine sed)Order ed By: Alexander King on 05-29-2023 Mucus Ql (Urine sed) 0 SEEN /hpf [facility] Nitrite Test strip Ql (U)Ord ered By: Alexander King on 05-29-2023 Nitrite Ql (U) Negative Negative [facility] No Panel InformationOrdered By: Alexander King on 05-29-2023 Estimated GFR (MDRD) Amer 115 mL/min >[address] [facility] Comment on above: GFR Calc Estimated GFR (MDRD) Non-Af Amer 95 mL/min >[address] [facility] Comment on above: Non- GFR Calc Urine RBC 0 SEEN /hpf 0-[address] [facility] VLDL Cholesterol 23 mg/dL 5-[address] [facility] Protein Test strip Ql (U)Ord ered By: Alexander King on 05-29-2023 Protein Ql (U) Negative Negative [facility] RBC Auto (Bld) [#/Vol]Ordere d By: Alexander King on 05-29-2023 RBC (Bld) [#/Vol] 4.64 10*6/uL 4.2-5.4 [facility] Serum or plasma calcium camilla urement (mass/volume)Ordered By: Alexander King on 05-29-2023 Calcium [Mass/Vol] 8.9 mg/dL 8.5-10.1 [facility] Serum or plasma creatinine m easurement (mass/volume)Ordered By: Alexander King on 05-29-2023 Creatinine [Mass/Vol] 0.67 mg/dL 0.55-1.02 [facility] Comment on above: The validity of the calculated GFR & GFRAA in patients over 70 years has not been determined. Clinical correlation is essential. Serum or plasma thyroid stim ulating hormone (TSH) measurement (units/volume)Ordered By: Alexander King on 05-29-2023 TSH Qn 1.55 uIU/mL 0.358-3.[address] [facility] Serum or plasma urea nitroge n measurement (mass/volume)Ordered By: Alexander King on 05-29-2023 Urea nitrogen [Mass/Vol] 16 mg/dL 7-[address] [facility] Squamous epithelial cells de tection in urine sediment by light microscopyOrdered By: Alexander King on 05-29-2023 Epithelial cells.squamous LM Ql (Urine sed) 0 SEEN /hpf 5-[address] [facility] Thin prep Papanicolaou smear with manual screeningOrdered By: Alexander King on 05-29-2023 Thin prep Papanicolaou smear with manual screening 3.7 g/dL 3.2-5.[address] [facility] Thin prep Papanicolaou smear with manual screening 29 U/L 15-[address] [facility] Thin prep Papanicolaou smear with manual screening 5 5-[address] [facility] Urine blood detectionOrdered By: Alexander King on 05-29-2023 RBC Ql (U) Negative Negative [facility] Urine clarityOrdered By: Ru King on 05-29-2023 Clarity (U) Clear Clear [facility] Urine color determinationOrd ered By: Alexander King on 05-29-2023 Color (U) Yellow Yellow [facility] Urine glucose detectionOrder ed By: Alexander King on 05-29-2023 Glucose Ql (U) Normal mg/dl Normal [facility] Urine leukocyte esterase det ection by dipstickOrdered By: Alexander King on 05-29-2023 Leukocyte esterase Test strip Ql (U) Negative Negative [facility] Urine pHOrdered By: Alexander polk on 05-29-2023 pH (U) 6.0 [pH] 5.0 - 8.[address] [facility] Urine sediment bacteria coun t by microscopy (number/high power field)Ordered By: Alexander King on 05-29-2023 Bacteria LM.HPF (Urine sed) [#/Area] 0 /[HPF] None Seen [facility] Urine specific gravity measu rementOrdered By: Alexander King on 05-29-2023 Specific gravity (U) [Rel density] 1.010 1.002-1.[address] [facility] Urine urobilinogen measureme ntOrdered By: Alexander King on 05-29-2023 Urobilinogen Ql (U) Normal mg/dl Normal [facility] Absolute lymphocyte counton 10-03-2021 Lymphocytes Auto (Unsp spec) [#/Vol] 2.55 10*3/uL 0.83-4.[address] [facility] Work Phone: Basophil percentageon 2021 Basophils/100 WBC (Bld) 0.5 % 0-1 [facility] Work Phone: Bilirubin [Mass/Vol] 0.30 mg/dL 0.20-1.00 [facility] Work Phone: Comment on above: For patients on eltr ombopag therapy, use of Dimension [place] TBIL is not recommended. Chloride [Moles/Vol] 108 mmol/L 98-107 [facility] Work Phone: Eosinophils/100 WBC (Bld) 3.0 % 0-[address] [facility] Work Phone: Glucose [Mass/Vol] 112 mg/dL 74-106 [facility] Work Phone: Comment on above: Fasting Glucose resu lt from 100 to 125 mg/dL suggests IMPAIRED HOMEOSTASIS per A.D.A. criteria. Neutrophils (Bld) [#/Vol] 4.9 10*3/uL 2.0-7.[address] [facility] Work Phone: Neutrophils/100 WBC (Bld) 58.9 % 47-[address] [facility] Work Phone: Potassium [Moles/Vol] 3.6 mmol/L 3.5-5.1 [facility] Work Phone: Protein [Mass/Vol] 6.7 g/dL 6.4-8.2 [facility] Work Phone: Sodium [Moles/Vol] 140 mmol/L 136-145 [facility] Work Phone: WBC (Bld) [#/Vol] 8.4 10*3/uL 4.4-11.0 [facility] Work Phone: Blood erythrocytes count (nu mber/volume)on 10-03-2021 RBC (Bld) [#/Vol] 4.53 10*6/uL 4.2-5.4 [facility] Work Phone: [phone] Blood hemoglobin measurement (mass/volume)on 10-03-2021 Hemoglobin (Bld) [Mass/Vol] 14.3 g/dL 12.0-15.[address] [facility] Work Phone: Blood lymphocytes/100 leukoc yteson 10-03-2021 Lymphocytes/100 WBC (Bld) 30.5 % 19-[address] [facility] Work Phone: Blood monocytes/100 leukocyt eson 10-03-2021 Monocytes/100 WBC (Bld) 6.7 % 0-10 [facility] Work Phone: Blood platelet mean volumeon 10-03-2021 Platelet mean volume (Bld) [Entitic vol] 9.9 fL 6.2-12.[address] [facility] Work Phone: Determination of erythrocyte mean corpuscular volume (MCV)on 10-03-2021 MCV (RBC) [Entitic vol] 93.2 fL 81-99 [facility] Work Phone: Hematocrit Auto (Bld) [Volum e fraction]on 10-03-2021 Hematocrit (Bld) [Volume fraction] 42.2 % 37-[address] [facility] Work Phone: Laboratory - Chemistry and C hemistry - challengeon 10-03-2021 ALP [Catalytic activity/Vol] 55 U/L 45-[address] [facility] Work Phone: ALT [Catalytic activity/Vol] 24 U/L 13-[address] [facility] Work Phone: CO2 [Moles/Vol] 28.0 mmol/L 21.0-32.[address] [facility] Work Phone: Free T4 [Mass/Vol] 0.94 ng/dL 0.76-1.46 [facility]: Globulin (S) [Mass/Vol] 3.1 g/dL 2.2-4.2 [facility] Work Phone: Urea nitrogen/Creatinine [Mass ratio] 25.5 mg/mg 10-[address] [facility] Work Phone: Laboratory - Hematology and Cell countson 10-03-2021 Erythrocyte distribution width (RBC) [Entitic vol] 40.6 fL 35.1-43.[address] [facility] Work Phone: [phone] Erythrocyte distribution width (RBC) [Ratio] 11.9 % 11.6-14.[address] [facility] Work Phone: Immature granulocytes/100 WBC (Bld) 0.400 % 0.0-0.[address] [facility] Work Phone: Comment on above: IG% - Immature Granu locytes (promyelocytes, myelocytes and metamyelocytes) > 1% indicates that a LEFT SHIFT is Present. MCH (RBC) [Entitic mass] 31.6 pg 27.0-32.[address] [facility] Work Phone: Nucleated RBC/100 WBC (Bld) [Ratio] 0 % 0-[address] [facility] Work Phone: MCHC Auto (RBC) [Mass/Vol]on 10-03-2021 MCHC (RBC) [Mass/Vol] 33.9 g/dL 32-36 [facility] Work Phone: No Panel Informationon 10-03 Estimated GFR (MDRD) Amer 103 mL/min >[address] [facility] Work Phone: Comment on above: GFR Calc Estimated GFR (MDRD) Non-Af Amer 85 mL/min >[address] [facility] Work Phone: Comment on above: Non- GFR Calc Thyroid Stimulating Hormone (TSH) 1.38 uIU/mL 0.358-3.[address] [facility] Work Phone: Platelets bldon 10-03-2021 Platelets (Bld) [#/Vol] 248 10*3/uL 150-[address] [facility] Work Phone: Serum or plasma albumin camilla urement (mass/volume)on 10-03-2021 Albumin [Mass/Vol] 3.6 g/dL 3.2-5.0 [facility] Work Phone: Serum or plasma albumin/glob ulin mass ratioon 10-03-2021 Albumin/Globulin [Mass ratio] 1.2 {ratio} 0.9-2.[address] [facility] Work Phone: Serum or plasma calcium camilla urement (mass/volume)on 10-03-2021 Calcium [Mass/Vol] 8.7 mg/dL 8.5-10.1 [facility] Work Phone: Serum or plasma creatinine m easurement (mass/volume)on 10-03-2021 Creatinine [Mass/Vol] 0.74 mg/dL 0.55-1.02 [facility] Work Phone: Comment on above: The validity of the calculated GFR & GFRAA in patients over 70 years has not been determined. Clinical correlation is essential. Serum or plasma urea nitroge n measurement (mass/volume)on 10-03-2021 Urea nitrogen [Mass/Vol] 19 mg/dL 7-[address] [facility] Work Phone: Thin prep Papanicolaou smear with manual screeningon 10-03-2021 Thin prep Papanicolaou smear with manual screening 17 U/L 15-[address] [facility] Work Phone: Thin prep Papanicolaou smear with manual screening 4 5-[address] [facility] Work Phone: Whole blood hemoglobin A1c/t otal hemoglobin ratio (mass fraction)on 10-03-2021 HbA1c (Bld) [Mass fraction] 5.1 % 3.8-5.[address] [facility] Work Phone: Comment on above: Normal < 5.7 % Predi abetic 5.7 - 6.4 % Diabetic >or= 6.5 % Please note range changes. Serum or plasma calcitriol m easurement (mass/volume)on 05-31-2021 1,25-dihydroxyvitamin D3 [Mass/Vol] 50.4 pg/mL [facility] Work Phone: Comment on above: Performed at: [address] [id number] Director: Pilo Phillips MD, Phone: [phone] Laboratory - Microbiology an d Antimicrobial susceptibilityon 03-21-2021 SARS-CoV-2 (COVID-19) RNA GISELLE+probe Ql (Unsp spec) Detected Not Detect [facility] Work Phone: Comment on above: Normal Reference Ran ge: Not DetectedMethod:(RT-PCR) real-time reverse transcriptase PCRLuminex ALBA Instrument*The Food and Drug Administration (FDA) has issued an Emergency Use Authorization (EAU) for the ALBA SARS-CoV-2 Assay for the rapid detection of the virus that causes COVID-19. This test has been validated, but the FDAs independent review of this validation is pending.*Negative results do not preclude infection and should not be used as the sole basis for treatment or patient management. Optimum specimen types and timing for peak viral levels during infections caused by SARS-CoV-2 have not been determined. Collection of multiple specimens from the same patient may be necessary to detect the virus. The possibility of a false negative result should be considered if the patient has clinical presentation or has had recent exposure. PROGRESSon 07-08-2017 PROGRESS HNO ID: [id number] thor: Khushbu Fowler RdmsSerelkee: (none)Author Type: (none)Type: Progress NotesFiled: 07/08/2017 9:47 AMNote Text: Radiology Service Progress NotePATIENT NAME: Trina WorthyRN: [id number] OF SERVICE: July 08, 2017TIME: 9:47 AMPATIENT IDENTITY VERIFICATION COMPLETED USING TWO (2) METHODS: Patientconfirmed name verbally and Date of .PATIENT GENDER DATA: Female. status: : NoBreastfeeding status: NO.PATIENT RELEVANT IMPLANT DATA REVIEWED: Not ApplicableRADIOLOGY DEPARTMENT: UltrasoundPERIPHERAL IV DATA: Not applicableSIGNED BY: Khushbu Fowler RdmsMay 2017 9:47 AM Normal [facility] US ABD RIGHT UPPER QUADRANTo n 07-08-2017 US ABD RIGHT UPPER QUADRANT * * *Final Report* * *DATE OF EXAM: Jul 08 2017 9:46AM U 1032 - US ABD RIGHT UPPER QUADRANT / REASON: Abnormal levels of other serum enzymes * * * * Physician Interpretation * * * * EXAM TITLE: US ABD RIGHT UPPER QUADRANTHISTORY: Abnormal liver function test.TECHNIQUE: Sonography of the right upper quadrant was performed. Images were obtained and stored in a permanent archive.MQ: [id number]: None.RESULT:Pancreas: Normal sonographic appearance in the visualized portions Portions obscured: tailLiver: Echotexture: Homogeneous Echogenicity: Normal Surface contour: Smooth Lesions: None.Biliary: No intrahepatic biliary duct dilation. CBD: 3 mm. Gallbladder: Normal caliber -Contents: No cholelithiasis -Wall: Within normal limits -Other: Negative sonographic Turpin's signRight Kidney: Normal sonographic appearance measuring 11.3 cm in length.Ascites: None.Others: The spleen measures 11.2 x 5.5 x 10.1 cm.IMPRESSION:NORMAL SONOGRAPHIC APPEARANCE OF THE RIGHT UPPER QUADRANT.Band Tier : DINORAH Transcribe Date/Time: Jul 08 2017 9:55ADictated by : MINNA MARTIN MDThisuleiman examination was interpreted and the report reviewed and electronically signed by: MINNA MARTIN MD on Jul 08 2017 9:58AM [id number] Normal [facility] CBC and Differentialon 06-30 Abs Baso 0.04 k/uL Normal <0.11 [facility] Comment on above: Performed By: #### C BCDIF, CMP, LD6, CEA ####[place] [address] [place] [phone] Abs [place] 0.42 k/uL Normal <0.87 [facility] Comment on above: Performed By: #### C BCDIF, CMP, LD6, CEA ####[place] [phone] Abs Neut 3.79 k/uL Normal 1.45-7.50 [facility] Comment on above: Performed By: #### C BCDIF, CMP, LD6, CEA ####[place] [id number] Av[place] [phone] Basophils/100 WBC Auto (Bld) 0.6 % Normal [facility] Comment on above: Performed By: #### C BCDIF, CMP, LD6, CEA ####[place] [id number] [place] [phone] DTYPE Auto Diff Normal [facility] Comment on above: Performed By: #### C BCDIF, CMP, LD6, CEA ####[address] [place], [place] [phone] Eosinophils 0.23 10*3/uL Normal <0.46 [facility] Comment on above: Performed By: #### C BCDIF, CMP, LD6, CEA ####[facility] AveClevelPatricia [place] [phone] Eosinophils/100 leukocytes 3.4 % Normal [facility] Comment on above: Performed By: #### C BCDIF, CMP, LD6, CEA ####[facility]ClevelPatricia [place]ille [phone] Erythrocyte distribution width Auto Ratio (RBC) 12.4 % Normal 11.5-15.0 [facility] Comment on above: Performed By: #### C BCDIF, CMP, LD6, CEA ####[place] [address] [address]CStephen [place] [phone] Erythrocytes (RBC) 0.0 /100 WBC Normal 0 [facility] Comment on above: Performed By: #### C BCDIF, CMP, LD6, CEA ####[place] [address] [address] [place] [phone] Erythrocytes (RBC) 10*6/uL Normal <0.01 [facility] Comment on above: Performed By: #### C BCDIF, CMP, LD6, CEA ####[place] [address] [address] [place] [phone] Erythrocytes (RBC) 4.57 10*6/uL Normal 3.90-5.20 [facility] Comment on above: Performed By: #### C BCDIF, CMP, LD6, CEA ####[facility]ClevelPatricia [place]ille [phone] Hematocrit (HCT) 44.0 % Normal 36.0-46.0 [facility] Comment on above: Performed By: #### C BCDIF, CMP, LD6, CEA ####[place] [phone] Hemoglobin mass conc (Bld) 15.0 g/dL Normal 11.5-15.5 [facility] Comment on above: Performed By: #### C BCDIF, CMP, LD6, CEA ####[place] [phone] Lymphocytes 2.21 10*3/uL Normal 1.00-4.00 [facility] Comment on above: Performed By: #### C BCDIF, CMP, LD6, CEA ####[address] [place] [phone] Lymphocytes/100 leukocytes 32.9 % Normal [facility] Comment on above: Performed By: #### C BCDIF, CMP, LD6, CEA ####[place] [phone] MCH 32.8 pG Normal 26.0-34.0 [facility] Comment on above: Performed By: #### C BCDIF, CMP, LD6, CEA ####[place] [phone] MCHC mass conc (RBC) 34.1 g/dL Normal 30.5-36.0 [facility] Comment on above: Performed By: #### C BCDIF, CMP, LD6, CEA ####[place] [phone] MCV 96.3 fL Normal 80.0-100.0 [facility] Comment on above: Performed By: #### C BCDIF, CMP, LD6, CEA ####[place] [phone] Monocytes/100 leukocytes 6.3 % Normal [facility] Comment on above: Performed By: #### C BCDIF, CMP, LD6, CEA ####[address] [facility] [phone] Neutrophils/100 WBC Auto (Bld) 56.8 % Normal [facility] Comment on above: Performed By: #### C BCDIF, CMP, LD6, CEA ####[address], [place] [phone] Platelet mean volume (PMV) 10.1 fL Normal 9.0-12.7 [facility] Comment on above: Performed By: #### C BCDIF, CMP, LD6, CEA ####[address] [phone] Platelets 269 10*3/uL Normal 150-400 [facility] Comment on above: Performed By: #### C BCDIF, CMP, LD6, CEA ####[address], [place] [phone] WBC (Leukocytes) 6.71 10*3/uL Normal 3.70-11.00 [facility] Comment on above: Performed By: #### C BCDIF, CMP, LD6, CEA ####[address] [phone] CEAon 06-30-2017 CEA 7.7 ng/mL High 0.0-2.9 [facility] Comment on above: Result Comment: Test analyzed by the Aminata DxI method. Performed By: #### C BCDIF, CMP, LD6, CEA ####[address], [place] [phone] CNOVon 06-30-2017 CNOV Office Visit (INTMWS) NESTOR DAVIS ([id number]) 1965 FDate Time Provider Department06/30/17 2:00 PM PASTOR NAIK During your visit today, we recorded the following information about you: Temperature Pulse Respiration Blood pressure 99.2 degrees 68/minute 20/minute 130/82 Weight 83.8 kgPastor Niak MD 06/30/2017 2:36 PM SignedThis note was created using NoteWriter.Gabriela Davis is a 52 year old female was here for follow up of elevated CEA. She was feeling well. She recovered from bronchitis treated at [facility].She saw [facility] for check up in March in the context of CEA elevation.Her mammograms and gynecologic examinations were current, and so was colorectalcancer screening. Pelvic US was done.Review of SystemsConstitutional: Negative.Respiratory: Negative.Gastrointestinal : Negative.Genitourinary: Negative.Neurological: Positive for tremors.Hematological: Negative. ObjectiveBP 130/82 (BP Site: Right Arm, BP Position: Sitting, BP Cuff Size: RegularAdult) Pulse 68 Temp 37.3 ?C (99.2 ?F) (Left Tympanic) Resp 20 Wt 83.8kg (184 lb 12.8 oz) LMP 08/28/2005 BMI 28.94 kg/c1Xqrzmyju ExamConstitutional: She appears well-nourished.HENT:Nose: Nose normal.Mouth/Throat: Oropharynx is clear and moist.Pulmonary/Chest: Breath sounds normal.Lymphadenopathy: She has no cervical adenopathy.Neurological: She is alert. She has normal strength. She displays tremor. Nosensory deficit.Mild intention tremor of the right hand. Assessment and Plan1. Elevated carcinoembryonic antigen (CEA) - ICD9: 795.81, ICD10: R97.0(primary diagnosis)Recheck labs. If still elevating, consider hem/onc consultation (e consult ifavailable). If stable, continue observation.- CEA BLD- CBC + DIFF- COMP METABOLIC PANEL- LD LACTATE DEHYDRO2. Tremor of right hand - ICD9: 781.0, ICD10: R25.1Mild. She had noted this for a few years, and was concerned due to herfather's neurologic condition. Consider neurology consult if symptoms worseand impact on activities of daily living.3. Adjustment disorder with mixed anxiety and depressed mood - ICD9: 309.28,ICD10: F43.23Mild. She preferred no medication.Pastor Naik MDReferring Provider: PASTOR NAIK [[id number]]Allergies As of Date: 06/30/2017 Noted Allergy ReactionHONEY 11/29/2014 8 - GI Upset Comments: Pt had raw honey from the fair.SULFA (SULFONAMIDE ANTIBIOTICS) 02/22/2005 4 - HivesDate Reviewed: 06/30/2017Reviewed by: Eden Watt LPN - Fully AssessedReason for Visit: 5 month follow-up [Other]Primary Visit Diagnosis:Elevated carcinoembryonic antigen (CEA) [R97.0] Other Visit Diagnoses:Tremor of right hand [R25.1] Adjustment disorder with mixed anxiety and depressed mood [F43.23]Order(s):CEA BLD [SQCEA] Order #: [id number] FUTURE CBC + DIFF [SQCBCDIF] Order #: [id number] FUTURE COMP METABOLIC PANEL [SQCMP] Order #: [id number] FUTURE LD LACTATE DEHYDRO [SQLD6] Order #: [id number] FUTUREPrescriptions as of 06/30/2017 Sig: ALBUTEROL SULFATE HFA 90 MCG/* Inhale 2 Puffs as instructed * ESTRADIOL 0.05 MG/24 HR SEMIW* Apply 1 Patch as directed onc* OXAZEPAM 15 MG CAPSULE Take 1 capsule by mouth at be* NYSTATIN-TRIAMCINOLONE 100,00* Apply 1 application to affect* * COMPOUNDED PRESCRIPTION takes a probiotic and a prebi* * COMPLETE MULTIVITAMIN TABLETMedication notes this encounter TRAZODONE 50 MG TABLET >> Eden Watt LPN 06/30/2017 2:06 PM >> EDEN WATT LPN FriJun 30, 2017 2:06 PM Patient filled RX, did not take.Problem List As Of Date 06/30/2017 Noted Resolved CANDIDAL VULVOVAGINITIS [B37.3] INVALID FOR*04/11/2015 S/P subtotal hysterectomy [Z90.711] INVALID FOR* Rosacea [L71.9] INVALID FOR* More... Lump or mass in breast [N63.0] INVALID FOR*06/30/2017 Symptomatic menopausal or female climacteric st*INVALID FOR* Osteoarthritis of both knees [M17.0] INVALID FOR* More... Mixed incontinence [N39.46] INVALID FOR* Adjustment disorder with mixed anxiety and depr*INVALID FOR* Tinnitus of both ears [H93.13] INVALID FOR* Tremor of right hand [R25.1] INVALID FOR*Medications Discontinued During This Encounter traZODone (DESYREL) 50 mg tablet 30 t* 2 01/28/2017 06/30/2017 Route: ORAL Sig: Take 1 tablet by mouth daily at bedtime. Disc: Reason for discontinue is not on file. predniSONE (DELTASONE) 10 mg tablet 21 t* 0 05/26/2017 06/30/2017 Sig: Day 1 take 6 tablets, day 2 take 5 tablets, day 3 take 4 tablets, day 4 take 3 tablets, day 5 take 2 tablets, day 6 take 1 tablet. Disc: Reason for discontinue is not on file.Disposition: Return in about 1 year (around 06/30/2018).Follow-up and Disposition History RecordedEncounter Number: [id number] Status:Closed by PASTOR NAIK MD on 06/30/17 Normal [facility] Comp Metabolic Panelon 06-30 Alanine aminotransferase (ALT) 23 U/L Normal 7-38 [facility] Comment on above: Performed By: #### C BCDIF, CMP, LD6, CEA ####[facility] [address] [place], [place] [phone] Albumin 4.3 g/dL Normal 3.9-4.9 [facility] Comment on above: Performed By: #### C BCDIF, CMP, LD6, CEA ####[facility] [address], [place] [phone] Alkaline phosphatase (ALP) 51 U/L Normal 32-117 [facility] Comment on above: Performed By: #### C BCDIF, CMP, LD6, CEA ####[facility] [address], [place] [phone] Anion gap 13 mmol/L Normal 9-18 [facility] Comment on above: Performed By: #### C BCDIF, CMP, LD6, CEA ####[place] [address] [address] [place] [phone] Aspartate aminotransferase (AST) 37 U/L High 13-35 [facility] Comment on above: Performed By: #### C BCDIF, CMP, LD6, CEA ####[place] [address] [address] [place] [phone] Bilirubin (total) 0.2 mg/dL Normal 0.2-1.3 [facility] Comment on above: Performed By: #### C BCDIF, CMP, LD6, CEA ####[place] [address] [address] [place] [phone] Calcium 8.7 mg/dL Normal 8.5-10.2 [facility] Comment on above: Performed By: #### C BCDIF, CMP, LD6, CEA ####[place] [address] [address] [place] [phone] Chloride 104 mmol/L Normal 97-105 [facility] Comment on above: Performed By: #### C BCDIF, CMP, LD6, CEA ####[place] [address] [address] [place] [phone] CO2 24 mmol/L Normal 22-30 [facility] Comment on above: Performed By: #### C BCDIF, CMP, LD6, CEA ####[place] [address] [address] [place] [phone] Creatinine 0.75 mg/dL Normal 0.58-0.96 [facility] Comment on above: Performed By: #### C BCDIF, CMP, LD6, CEA ####[place] [address] [address] [place] [phone] eGFR (non-black) mL/min/{1.73_m2} Normal [facility] Comment on above: Result Comment: eGFR (Estimated GFR) Units of measure: mL/min/1.73 meters squaredeGFR is derived from the reexpressed MDRD Study equation using the following parameters: serum creatinine, age, gender and race. The creatinine assay has been calibrated to be traceable to IDMS.An eGFR <60 mL/min/1.73m2 for >3 months is consistent with chronic kidney disease. Refer to KDOQI guidelines for clinical interpretation.In patients with unstable renal function, e.g. those with acute kidney injury, the eGFR may not accurately reflect actual GFR. Performed By: #### C BCDIF, CMP, LD6, CEA ####[facility] [place], [place] [phone] Glucose mass conc 85 mg/dL Normal 74-99 [facility] Comment on above: Result Comment: The [place] [employer] (ADA) provides guidance for cutoff values for fasting glucose and random glucose. The ADA defines fasting as no caloric intake for at least 8 hours. Fasting plasma glucose results between 100 to 125 mg/dL indicate increased risk for diabetes (prediabetes).Fasting plasma glucose results greater than or equal to 126 mg/dL meet the criteria for diagnosis of diabetes. In the absence of unequivocal hyperglycemia, results should be confirmed by repeat testing. In a patient with classic symptoms of hyperglycemia or hyperglycemic crisis, random plasma glucose results greater than or equal to 200 mg/dL meet the criteria for diagnosis of diabetes.Reference: Standards of Medical Care in Diabetes 2016, [place] [employer]. Diabetes Care. 2016.39(Suppl 1). Performed By: #### C BCDIF, CMP, LD6, CEA ####[facility] [address], [place] [phone] Potassium molar conc 4.0 mmol/L Normal 3.7-5.1 [facility] Comment on above: Performed By: #### C BCDIF, CMP, LD6, CEA ####[facility] [address]CCul[address] [place], [place] [phone] Protein 6.7 g/dL Normal 6.3-8.0 [facility] Comment on above: Performed By: #### C BCDIF, CMP, LD6, CEA ####[facility] [address] AveCCulver City, [place] [phone] Sodium 141 mmol/L Normal 136-144 [facility] Comment on above: Performed By: #### C BCDIF, CMP, LD6, CEA ####[facility] [address] AveCCulver [place], [place] [phone] Urea nitrogen 14 mg/dL Normal 7-21 [facility] Comment on above: Performed By: #### C BCDIF, CMP, LD6, CEA ####[facility] [address]CCulver [place], [place] [phone] LDon 06-30-2017 LD 211 U/L Normal 135-214 [facility] Comment on above: Performed By: #### C BCDIF, CMP, LD6, CEA ####[facility] [address], [place] [phone] PROGRESSon 06-30-2017 PROGRESS HNO ID: [id number] thor: Pastor Livingston: (none)Author Type: PhysicianType: Progress NotesFiled: 06/30/2017 2:36 PMNote Text:This note was created using [employer] Angel[employer].Gabriela Davis is a 52 year old female was here for follow up of elevatedCEA. She was feeling well. [facility] for check up in March in the contextof CEA elevation. Her mammograms and gynecologic examinations werecurrent, and so was colorectal cancer screening. Pelvic US was done.Review of SystemsConstitutional: Negative.Respiratory: Negative.Gastrointestinal : Negative.Genitourinary: Negative.Neurological: Positive for tremors.Hematological: Negative. ObjectiveBP 130/82 (BP Site: Right Arm, BP Position: Sitting, BP Cuff Size: RegularAdult) Pulse 68 Temp 37.3 ?C (99.2 ?F) (Left Tympanic) Resp 20 Wt83.8 kg (184 lb 12.8 oz) LMP 08/28/2005 BMI 28.94 kg/s2Jchbfcdb ExamConstitutional: She appears well-nourished.HENT:Nose: Nose normal.Mouth/Throat: Oropharynx is clear and moist.Pulmonary/Chest: Breath sounds normal.Lymphadenopathy: She has no cervical adenopathy.Neurological: She is alert. She has normal strength. She displays tremor.No sensory deficit.Mild intention tremor of the right hand. Assessment and Plan1. Elevated carcinoembryonic antigen (CEA) - ICD9: 795.81, ICD10: R97.0(primary diagnosis)Recheck labs. If still elevating, consider hem/onc consultation (econsult if available). If stable, continue observation.- CEA BLD- CBC + DIFF- COMP METABOLIC PANEL- LD LACTATE DEHYDRO2. Tremor of right hand - ICD9: 781.0, ICD10: R25.1Mild. She had noted this for a few years, and was concerned due to herfather's neurologic condition. Consider neurology consult if symptomsworse and impact on activities of daily living.3. Adjustment disorder with mixed anxiety and depressed mood - ICD9:309.28, ICD10: F43.23Mild. She preferred no medication.Pastor Naik MD [facility] CNOVon 05-26-2017 CNOV Office Visit (UCWSTR) NESTOR DAVIS ([id number]) 1965 [facility] Department05/26/17 12:30 PM JOSHUA LIN (FARHAD) WSTR During your visit today, we recorded the following information about you: Temperature Pulse Respiration Blood pressure 98.5 degrees 73/minute 16/minute 134/88 Weight 83.8 kgJoshua Lin APRN.CNP, APRN.CNP 05/26/2017 12:54 PM SignedSubjectiveHPIHPI Trina Davis is a 52 year old female who presents today for CC of sinuscongestion, pressure, headache, ears feel full, coughing, chest congestionThis started 10 days ago, she has been flying she has tried sudafed, nasocort,advil cold and sinusACTIVE PROBLEM LISTS/P Subtotal HysterectomyRosaceaLump Or Mass in BreastSymptomatic Menopausal Or Female Climacteric StatesOsteoarthritis of Both KneesMixed IncontinenceAdjustment Disorder With Mixed Anxiety and Depressed MoodTinnitus of Both EarsBP 134/88 (BP Site: Left Arm, BP Position: Sitting, BP Cuff Size: RegularAdult) Pulse 73 Temp 36.9 ?C (98.5 ?F) (Right Tympanic) Resp 16 Wt 83.8kg (184 lb 12.8 oz) LMP 08/28/2005 SpO2 98% BMI 28.94 kg/w6BQCDRSFKENgdbfvlw Reactions- Honey GI Upset Pt had raw honey from the fair.- Sulfa (Sulfonamide * HivesCurrent Outpatient Prescriptions:estradiol (VIVELLE-DOT) 0.05 mg/24 hr Apply 1 Patch as directed once each week.TWICE WEEKLY Disp: 25 Patch Rfl: 3traZODone (DESYREL) 50 mg tablet Take 1 tablet by mouth daily at bedtime. Disp:30 tablet Rfl: 2oxazepam (SERAX) 15 mg capsule Take 1 capsule by mouth at bedtime as needed.Disp: 20 capsule Rfl: 2nystatin-triamcinolone ointment Apply 1 application to affected area asdirected. Disp: 1 Tube Rfl: 0COMPOUNDED PRESCRIPTION takes a probiotic and a prebiotic, an immune busterDisp: Rfl: 0COMPLETE MULTIVITAMIN TAB Disp: Rfl: 0No current facility-administered medications for this visit.Review of SystemsConstitutional: Positive for fever (low grade). Negative for chills,diaphoresis and malaise/fatigue.HENT: Positive for congestion, ear pain and sinus pain. Negative for sorethroat.Respiratory: Positive for cough. Negative for wheezing.Gastrointestinal : Negative for abdominal pain, diarrhea, nausea and vomiting.Musculoskeletal: Negative for joint pain and myalgias.Skin: Negative for rash.Neurological: Positive for headaches. Negative for weakness.ObjectivePhysica l ExamConstitutional: She is oriented to person, place, and time and well-developed,well-hadley shed, and in no distress.HENT:Head: Normocephalic and atraumatic.Right Ear: Ear canal normal. A middle ear effusion (serous) is present.Left Ear: Ear canal normal. Tympanic membrane is erythematous and bulging. Amiddle ear effusion (yellos) is present.Nose: Mucosal edema (moderate) and rhinorrhea (thick yellow) present. Rightsinus exhibits maxillary sinus tenderness. Right sinus exhibits no frontalsinus tenderness. Left sinus exhibits maxillary sinus tenderness. Left sinusexhibits no frontal sinus tenderness.Mouth/Throat: Uvula is midline, oropharynx is clear and moist and mucousmembranes are normal. Normal dentition. No oropharyngeal exudate or tonsillarabscesses.Eyes: Conjunctivae and EOM are normal. Pupils are equal, round, and reactive tolight.Neck: Normal range of motion. Neck supple.Cardiovascular: Normal rate, regular rhythm and normal heart sounds.Pulmonary/Chest: Effort normal. No respiratory distress. She has wheezes(expiratory).Harsh cough present throughout the examLymphadenopathy: Head (right side): No submental, no submandibular, no tonsillar, nopreauricular, no posterior auricular and no occipital adenopathy present. Head (left side): No submental, no submandibular, no tonsillar, nopreauricular, no posterior auricular and no occipital adenopathy present. She has no cervical adenopathy.Neurological: She is alert and oriented to person, place, and time. Gaitnormal.Skin: Skin is warm and dry.Psychiatric: Affect normal.Nursing note and vitals reviewed.ASSESSMENT/PLAN: 1. Sinobronchitis - ICD9: 473.9, 490, ICD10: J32.9, J40 (primary diagnosis)- Supportive care with plenty of fluids, rest, and analgesia prn.- Follow up in one week if symptoms persist or worsen.- AMOXICILLIN 875 MG-POTASSIUM CLAVULANATE 125 MG TABLET- BENZONATATE 100 MG CAPSULE- PREDNISONE 10 MG TABLET- ALBUTEROL SULFATE HFA 90 MCG/ACTUATION AEROSOL INHALER2. Acute otitis media, left - ICD9: 382.9, ICD10: H66.92- Supportive care with plenty of fluids, rest, and analgesia prn.- Follow up in one week if symptoms persist or worsen.- AMOXICILLIN 875 MG-POTASSIUM CLAVULANATE 125 MG TABLETMeeta Yung APRN.CNP, APRN.CNP 05/26/2017 12:50 PM SignedASSESSMENT/PLAN:1. Sinobronchitis - ICD9: 473.9, 490, ICD10: J32.9, J40 (primary diagnosis)- Supportive care with plenty of fluids, rest, and analgesia prn.- Follow up in one week if symptoms persist or worsen.- AMOXICILLIN 875 MG-POTASSIUM CLAVULANATE 125 MG TABLET- BENZONATATE 100 MG CAPSULE- PREDNISONE 10 MG TABLET- ALBUTEROL SULFATE HFA 90 MCG/ACTUATION AEROSOL INHALER2. Acute otitis media, left - ICD9: 382.9, ICD10: H66.92- Supportive care with plenty of fluids, rest, and analgesia prn.- Follow up in one week if symptoms persist or worsen.- AMOXICILLIN 875 MG-POTASSIUM CLAVULANATE 125 MG TABLETReferring Provider: SELF [[id number]]Allergies As of Date: 05/26/2017 Noted Allergy ReactionHONEY 11/29/2014 8 - GI Upset Comments: Pt had raw honey from the fair.SULFA (SULFONAMIDE ANTIBIOTICS) 02/22/2005 4 - HivesDate Reviewed: 05/26/2017Reviewed by: Joshua Yu (Farhad) OSWALDO Lin - Fully AssessedReason for Visit: Cough [28] Cmt: with sinus congestion AND H/A x 1.5 weeksPrimary Visit Diagnosis:Sinobronchitis [J32.9, J40] Other Visit Diagnosis:Acute otitis media, left [H66.92]Order(s):amoxicil swathi-clavulanic acid (AUGMENTIN) 875-125 mg per tabletTake 1 tablet by mouth twice daily for 10 days.Disp: 20 tabletRfl: 0 benzonatate (TESSALON PERLE) 100 mg capsuleTake 2 capsules by mouth three times daily as needed for Cough for up to 7 days.Disp: 25 capsuleRfl: 0 predniSONE (DELTASONE) 10 mg tabletDay 1 take 6 tablets, day 2 take 5 tablets, day 3 take 4 tablets, day 4 take 3 tablets, day 5 take 2 tablets, day 6 take 1 tablet.Disp: 21 tabletRfl: 0 albuterol HFA (VENTOLIN HFA) 90 mcg/actuation inhalerInhale 2 Puffs as instructed every 4 hours as needed for Wheezing/Shortness of Breath.Disp: 1 InhalerRfl: 0Prescriptions as of 05/26/2017 Sig: ESTRADIOL 0.05 MG/24 HR SEMIW* Apply 1 Patch as directed onc* TRAZODONE 50 MG TABLET Take 1 tablet by mouth daily * OXAZEPAM 15 MG CAPSULE Take 1 capsule by mouth at be* NYSTATIN-TRIAMCINOLONE 100,00* Apply 1 application to affect* * COMPOUNDED PRESCRIPTION takes a probiotic and a prebi* * COMPLETE MULTIVITAMIN TABLET AMOXICILLIN 875 MG-POTASSIUM * Take 1 tablet by mouth twice * BENZONATATE 100 MG CAPSULE Take 2 capsules by mouth thre* PREDNISONE 10 MG TABLET Day 1 take 6 tablets, day 2 t* ALBUTEROL SULFATE HFA 90 MCG/* Inhale 2 Puffs as instructed *Problem List As Of Date 05/26/2017 Noted Resolved CANDIDAL VULVOVAGINITIS [B37.3] INVALID FOR*04/11/2015 S/P subtotal hysterectomy [Z90.711] INVALID FOR* Rosacea [L71.9] INVALID FOR* More... Lump or mass in breast [N63.0] INVALID FOR* Symptomatic menopausal or female climacteric st*INVALID FOR* Osteoarthritis of both knees [M17.0] INVALID FOR* More... Mixed incontinence [N39.46] INVALID FOR* Adjustment disorder with mixed anxiety and depr*INVALID FOR* Tinnitus of both ears [H93.13] INVALID FOR* Other instructions from your clinician: ASSESSMENT/PLAN: 1. Sinobronchitis - ICD9: 473.9, 490, ICD10: J32.9, J40 (primary diagnosis) - Supportive care with plenty of fluids, rest, and analgesia prn. - Follow up in one week if symptoms persist or worsen. - AMOXICILLIN 875 MG-POTASSIUM CLAVULANATE 125 MG TABLET - BENZONATATE 100 MG CAPSULE - PREDNISONE 10 MG TABLET - ALBUTEROL SULFATE HFA 90 MCG/ACTUATION AEROSOL INHALER 2. Acute otitis media, left - ICD9: 382.9, ICD10: H66.92 - Supportive care with plenty of fluids, rest, and analgesia prn. - Follow up in one week if symptoms persist or worsen. - AMOXICILLIN 875 MG-POTASSIUM CLAVULANATE 125 MG TABLETPrescriptions ordered this encounter Disp Refills Start End AMOXICILLIN 875 MG-POTASSIUM CLAVULA* 20 t* 0 05/26/2017 06/05/2017 Route: ORAL Sig: Take 1 tablet by mouth twice daily for 10 days. BENZONATATE 100 MG CAPSULE 25 c* 0 05/26/2017 06/02/2017 Route: ORAL Sig: Take 2 capsules by mouth three times daily as needed for Cough for up to 7 days. PREDNISONE 10 MG TABLET 21 t* 0 05/26/2017 Sig: Day 1 take 6 tablets, day 2 take 5 tablets, day 3 take 4 tablets, day 4 take 3 tablets, day 5 take 2 tablets, day 6 take 1 tablet. ALBUTEROL SULFATE HFA 90 MCG/ACTUATI* 1 In* 0 05/26/2017 Route: INHALATION Sig: Inhale 2 Puffs as instructed every 4 hours as needed for Wheezing/Shortness of Breath. Status:Closed by JOSHUA LIN on 05/26/17 Normal [facility] PROGRESSon 05-26-2017 PROGRESS HNO ID: [id number] thor: Joshua Yu ([facility]) ABHISHEK Lin.CNPService: (none)Author Type: Nurse PractitionerType: Progress NotesFiled: 05/26/2017 12:54 PMNote Text:SubjectiveHPIHPI Trina Davis is a 52 year old female who presents today for CC ofsinus congestion, pressure, headache, ears feel full, coughing, chestcongestion This started 10 days ago, she has been flying she has triedsudafed, nasocort, advil cold and sinusACTIVE PROBLEM LISTS/P Subtotal HysterectomyRosaceaLump Or Mass in BreastSymptomatic Menopausal Or Female Climacteric StatesOsteoarthritis of Both KneesMixed IncontinenceAdjustment Disorder With Mixed Anxiety and Depressed MoodTinnitus of Both EarsBP 134/88 (BP Site: Left Arm, BP Position: Sitting, BP Cuff Size: RegularAdult) Pulse 73 Temp 36.9 ?C (98.5 ?F) (Right Tympanic) Resp 16 Wt83.8 kg (184 lb 12.8 oz) LMP 08/28/2005 SpO2 98% BMI 28.94 kg/n4TBLXPDSTGJhwdrlrf Reactions- Honey GI Upset Pt had raw honey from the fair.- Sulfa (Sulfonamide * HivesCurrent Outpatient Prescriptions:estradiol (VIVELLE-DOT) 0.05 mg/24 hr Apply 1 Patch as directed once eachweek. TWICE WEEKLY Disp: 25 Patch Rfl: 3traZODone (DESYREL) 50 mg tablet Take 1 tablet by mouth daily at bedtime.Disp: 30 tablet Rfl: 2oxazepam (SERAX) 15 mg capsule Take 1 capsule by mouth at bedtime asneeded. Disp: 20 capsule Rfl: 2nystatin-triamcinolone ointment Apply 1 application to affected area asdirected. Disp: 1 Tube Rfl: 0COMPOUNDED PRESCRIPTION takes a probiotic and a prebiotic, an immunebuster Disp: Rfl: 0COMPLETE MULTIVITAMIN TAB Disp: Rfl: 0No current facility-administered medications for this visit.Review of SystemsConstitutional: Positive for fever (low grade). Negative for chills,diaphoresis and malaise/fatigue.HENT: Positive for congestion, ear pain and sinus pain. Negative for sorethroat.Respiratory: Positive for cough. Negative for wheezing.Gastrointestinal : Negative for abdominal pain, diarrhea, nausea andvomiting.Musculoskelet al: Negative for joint pain and myalgias.Skin: Negative for rash.Neurological: Positive for headaches. Negative for weakness.ObjectivePhysica l ExamConstitutional: She is oriented to person, place, and time andwell-developed, well-nourished, and in no distress.HENT:Head: Normocephalic and atraumatic.Right Ear: Ear canal normal. A middle ear effusion (serous) is present.Left Ear: Ear canal normal. Tympanic membrane is erythematous and bulging.A middle ear effusion (yellos) is present.Nose: Mucosal edema (moderate) and rhinorrhea (thick yellow) present.Right sinus exhibits maxillary sinus tenderness. Right sinus exhibits nofrontal sinus tenderness. Left sinus exhibits maxillary sinus tenderness.Left sinus exhibits no frontal sinus tenderness.Mouth/Throat: Uvula is midline, oropharynx is clear and moist and mucousmembranes are normal. Normal dentition. No oropharyngeal exudate ortonsillar abscesses.Eyes: Conjunctivae and EOM are normal. Pupils are equal, round, andreactive to light.Neck: Normal range of motion. Neck supple.Cardiovascular: Normal rate, regular rhythm and normal heart sounds.Pulmonary/Chest: Effort normal. No respiratory distress. She has wheezes(expiratory).Harsh cough present throughout the examLymphadenopathy: Head (right side): No submental, no submandibular, no tonsillar, nopreauricular, no posterior auricular and no occipital adenopathy present. Head (left side): No submental, no submandibular, no tonsillar, nopreauricular, no posterior auricular and no occipital adenopathy present. She has no cervical adenopathy.Neurological: She is alert and oriented to person, place, and time. Gaitnormal.Skin: Skin is warm and dry.Psychiatric: Affect normal.Nursing note and vitals reviewed.ASSESSMENT/PLAN: 1. Sinobronchitis - ICD9: 473.9, 490, ICD10: J32.9, J40 (primarydiagnosis)- Supportive care with plenty of fluids, rest, and analgesia prn.- Follow up in one week if symptoms persist or worsen.- AMOXICILLIN 875 MG-POTASSIUM CLAVULANATE 125 MG TABLET- BENZONATATE 100 MG CAPSULE- PREDNISONE 10 MG TABLET- ALBUTEROL SULFATE HFA 90 MCG/ACTUATION AEROSOL INHALER2. Acute otitis media, left - ICD9: 382.9, ICD10: H66.92- Supportive care with plenty of fluids, rest, and analgesia prn.- Follow up in one week if symptoms persist or worsen.- AMOXICILLIN 875 MG-POTASSIUM CLAVULANATE 125 MG TABLETJoshua Lin APRN.[facility] Normal [facility] PROGRESSon 02-11-2017 PROGRESS HNO ID: [id number] thor: Dominique Guillenervice: (none)Author Type: PhysicianType: Progress NotesFiled: 02/11/2017 4:06 PMNote Text:The patient presents for a requested ultrasound.A full report is available in the " imaging" tab in [facility].Dominique Lazo MD, PhDMFM senior treasury consultant, [facility] OBSOLETEon 02-05-2017 OBSOLETE Procedure (WOOB) LINGTRINA ([id number]) 1965 FDate Time Provider Scelglnxhb27/29/17 1:00 PM DOMINIQUE LAZO During your visit today, we recorded the following information about you:Dominique Lazo MD 02/11/2017 4:06 PM SignedThe patient presents for a requested ultrasound.A full report is available in the ANDquot; imagingANDquot; tab in [employer].Dominique Lazo MD, PhDMFM senior treasury consultant, [facility] HospitalReferring Provider: ASHELY ASHLEY [[id number]]Allergies As of Date: 02/05/2017 Noted Allergy ReactionHONEY 11/29/2014 8 - GI Upset Comments: Pt had raw honey from the fair.SULFA (SULFONAMIDE ANTIBIOTICS) 02/22/2005 4 - HivesDate Reviewed: 01/31/2017Reviewed by: Aissatou Blanco Ma - Fully AssessedPrimary Visit Diagnosis:Elevated CEA [R97.0] Other Visit Diagnosis:Suspected condition not found [Z04.9]Prescriptions as of 02/05/2017 Sig: ESTRADIOL 0.05 MG/24 HR SEMIW* Apply 1 Patch as directed onc* TRAZODONE 50 MG TABLET Take 1 tablet by mouth daily * OXAZEPAM 15 MG CAPSULE Take 1 capsule by mouth at be* NYSTATIN-TRIAMCINOLONE 100,00* Apply 1 application to affect* * COMPOUNDED PRESCRIPTION takes a probiotic and a prebi* * COMPLETE MULTIVITAMIN TABLETProblem List As Of Date 02/05/2017 Noted Resolved CANDIDAL VULVOVAGINITIS [B37.3] INVALID FOR*04/11/2015 S/P subtotal hysterectomy [Z90.711] INVALID FOR* Rosacea [L71.9] INVALID FOR* More... Lump or mass in breast [N63.0] INVALID FOR* Symptomatic menopausal or female climacteric st*INVALID FOR* Osteoarthritis of both knees [M17.0] INVALID FOR* More... Mixed incontinence [N39.46] INVALID FOR* Adjustment disorder with mixed anxiety and depr*INVALID FOR* Tinnitus of both ears [H93.13] INVALID FOR* Status:Closed by DOMINIQUE LAZO MD on 02/11/17 Normal [facility] CNCOon 01-31-2017 CNCO HNO ID: [id number] thor: Mammography CoordinatorService: (none)Author Type: PhysicianType: LetterFiled: 02/03/2017 11:32 PMNote Text:January 31, 2017 PID: [id number] [id number] [place], [place] [address]Cpua Ling,We are pleased to inform you that the results of your recent breastimaging exam on 01/31/2017 are normal.Your mammogram demonstrates that you have dense breast tissue, which couldhide abnormalities. Dense breast tissue, in and of itself, is arelatively common condition. Therefore, this information is not providedto cause undue concern; rather, it is to raise your awareness and promotediscussion with your health care provider regarding the presence of densebreast tissue in addition to other risk factors. Early detection ofcancer is very important. We also understand recommendations regardingbreast cancer screening are controversial. Please discuss with yourprimary care provider which strategy is best for you and whether amammogram is right for you.Your imaging studies and report will [facility] part [facility] permanent medical record and are available for yourcontinuing care.Thank you for allowing us to help in meeting your health care needs.Sincerely,Dr. FriendInterpreting RadiologistWooster Women's Health Center (Normal over 40) Normal [facility] CNOVon 01-31-2017 CNOV Office Visit (WOOB) TRINA DAVIS ([id number]) 1965 [facility] Gkobcqozqz32/24/17 4:10 PM ASHELY ASHLEY During your visit today, we recorded the following information about you: Blood pressure Weight Height 130/84 84.8 kg 1.702 Fabi Degroot MD 01/31/2017 4:45 PM SignedLorrico Davis is a 51 year old who presents for her annual gynecologicexam without complaints. Pt had blood drawn for insurance- had CEA that waselevated. 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 Climbed [employer] [place] this yearPostmenopausal: Yes supracervical hysterectomyHRT use: yes Vivelle dotLast Pap: 2015 normalHPV: 2015 negativeHistory of abnormal pap: NoLast mammogram: 2016 normalHistory of abnormal mammogram: NoSexually active: YesHistory of STDS: NonePatient concerns for STD exposure: No.Pain with intercourse: NoPostcoital bleeding: NoHot flashes: NoNight sweats: NoVaginal dryness: NoExercise: routineDiet: baalncedObstetric History T0 L0 SAB0 TAB0 Ectopic0 Multiple0 Live Sfzgyd4UTCP MEDICAL HISTORYDiagnosis Date- CANDIDAL VULVOVAGINITIS 02/25/2005- Disorder of left rotator cuff 04/11/2015- Lump or mass in breast 07/08/2012- Osteoarthritis of both knees 04/11/[address] Serrato.- PMH - PAST MEDICAL HISTORY OF fibroid and heavy bleeding, hence a hysterectomy with no cervix removal- Rosacea 11/01/2011- S/P subtotal hysterectomy 11/01/2011- Symptomatic menopausal or female climacteric states 12/25/2012PAST SURGICAL HISTORYProcedure Laterality Date- COLONOSCOP W/ OR W/O [facility] SPEC 06/19/2015 Colonoscopy- LIGATE FALLOPIAN TUBE 1993- TOTAL ABDOM HYSTERECTOMY 09/2005 still has ovaries and cervixFAMILY HISTORYProblem Relation Age of Onset- Diabetes Mother Type 2- Heart Father had a couple of heart proceedures / HEART ATTACK 05/21/08- Hypertension Father- Diabetes Father Type 2- Diabetes Maternal Grandmother age on set- COPD Paternal Grandmother- Diabetes Paternal Grandmother- Breast Cancer Paternal Grandmother- Colon Cancer Paternal Grandmother- Breast Cancer Maternal Aunt- Hypertension Other both sides of family- Breast Cancer Paternal Aunt- Diabetes Brother Type 2SOCIAL HISTORYSocial HistorySubstance Use Topics- Smoking status: Never Smoker- Smokeless tobacco: Never Used- Alcohol use Yes Comment: ANDquot;Very littleANDquot;REVIEW OF SYSTEMSAbdomen: No abdominal pain, nausea, vomiting, diarrhea, or constipation. Nobloating, early satiety, indigestion, or increased flatulence.Bladder: No dysuria, gross hematuria, urinary frequency, urinary urgency, orincontinenceBreast: No breast lumps, nipple d/c, overlying skin changes, redness or skinretractionAllergies and current medication updated:YesEXAM: LMP 08/28/2005GENERAL: pleasant, female in no apparent distressHEENT: Normocephalic, atraumatic, mucus membranes moist and no lesionsNECK: Supple, full range of motion, no adenopathy and thyroid normalDERMATOLOGY: Normal, without lesions, non-icteric and non-hirsuteBREAST: soft, non-tender, symmetric, no dominant mass, normal nipple-areolarcomplex, no lymphadenopathy and no nipple dischargeABDOMEN: soft, non-tender and no massesPELVIC: external genitalia normal, normal Bartholin's glands, urethra, Grants'sglands, no vulvar lesions, no cervical lesions, good vaginal support,physiologic discharge present, normal appearing perineal body and perianalregionBIMANUAL: no adnexal masses, non-tender and uterus surgically absentRECTOVAGINAL: deferred.NEURO: alert and oriented x3,exam grossly non-focalEXTREMITIES: normalASSESSMENT/PLAN:1) Health maintenance:Pap/HPV up to date.Mammogram orderedMammogram up to dateNutrition, exercise and routine health maintenance exams reviewed.Calcium/Vitamin D supplementation information provided.Colon cancer screening: up to date with screening2) Follow up one year or sooner as needed3) reviewed many benign reasons for CEA to be elevated- pt very anxious- willget pelvic us but on exam nothing suspicious or concerning noted.[place] Provider: ASHELY ASHLEY [[id number]]Allergies As of Date: 01/31/2017 Noted Allergy ReactionHONEY 11/29/2014 8 - GI Upset Comments: Pt had raw honey from the fair.SULFA (SULFONAMIDE ANTIBIOTICS) 02/22/2005 4 - HivesDate Reviewed: 01/31/2017Reviewed by: Aissatou Blanco Ma - Fully AssessedReason for Visit: Yearly Exam [187]Primary Visit Diagnosis:Encounter for gynecological examination (general) (routine) without abnormal findings [Z01.419] Other Visit Diagnoses:Visit for screening mammogram [Z12.31] Elevated CEA [R97.0]Order(s):LLOYD SCREENING [[id number]] Order #: [id number] FUTURE estradiol (VIVELLE-DOT) 0.05 mg/24 hrApply 1 Patch as directed once each week. TWICE WEEKLYDisp: 25 PatchRfl: 3 PELVIC US WHI [[id number]] Order #: [id number]: 1Prescriptions as of 01/31/2017 Sig: ESTRADIOL 0.05 MG/24 HR SEMIW* Apply 1 Patch as directed onc* OXAZEPAM 15 MG CAPSULE Take 1 capsule by mouth at be* NYSTATIN-TRIAMCINOLONE 100,00* Apply 1 application to affect* * COMPOUNDED PRESCRIPTION takes a probiotic and a prebi* * COMPLETE MULTIVITAMIN TABLET TRAZODONE 50 MG TABLET Take 1 tablet by mouth daily *Problem List As Of Date 01/31/2017 Noted Resolved CANDIDAL VULVOVAGINITIS [B37.3] INVALID FOR*04/11/2015 S/P subtotal hysterectomy [Z90.711] INVALID FOR* Rosacea [L71.9] INVALID FOR* More... Lump or mass in breast [N63.0] INVALID FOR* Symptomatic menopausal or female climacteric st*INVALID FOR* Osteoarthritis of both knees [M17.0] INVALID FOR* More... Mixed incontinence [N39.46] INVALID FOR* Adjustment disorder with mixed anxiety and depr*INVALID FOR* Tinnitus of both ears [H93.13] INVALID FOR*Prescriptions ordered this encounter Disp Refills Start End ESTRADIOL 0.05 MG/24 HR SEMIWEEKLY T* 25 P* 3 01/31/2017 Route: TRANSDERM. Sig: Apply 1 Patch as directed once each week. TWICE WEEKLYMedications Discontinued During This Encounter estradiol (VIVELLE-DOT) 0.05 mg/24 hr 25 P* 2 09/12/2016 01/31/2017 Route: TRANSDERMAL Sig: Apply 1 Patch as directed once each week. TWICE WEEKLY Disc: Reason for discontinue is not on file.Disposition: Return in 1 year (on 01/31/2018) for Annual Exam.Follow-up and Disposition History RecordedEncounter Number: [id number] Status:Closed by ASHELY COLEMAN MD on 01/31/17 Normal [facility] SCREENINGon 01-31-2017 LLOYD SCREENING * * *Final Report* * *DATE OF EXAM: Jan 31 2017 4:11PM [facility] [address] [facility] SCREENING / REASON: Encounter for screening mammogram for malignant neoplasm of breast * * * * Physician Interpretation * * * *RESULT: #[id number] - LLOYD SCREENINGBILATERAL DIGITAL SCREENING MAMMOGRAM WITH CAD: 01/31/2017HISTORY: Encounter For Screening Mammogram For Malignant Neoplasm Of Breast /Screening Mammogram - patient reports NO breast symptoms /Priors available for comparison.RESULT:TECHNIQ UE: The study was acquired using full field digital technology and interpreted from soft copy.Current study was also evaluated with a Computer Aided Detection (CAD).Comparison is made to exams dated: 01/23/2016 mammogram - [facility], 12/22/2014 mammogram - [facility], and 11/29/2014 mammogram - [facility].The tissue of both breasts is extremely dense, which lowers the sensitivity of mammography.No significant masses, calcifications, or other findings are seen in either breast.There has been no significant interval change.IMPRESSION: NEGATIVEThere is no mammographic evidence of malignancy.A 1 year screening mammogram is recommended.Oumar Vargas/dionisio:01/31/2017 16:14:15Imaging Technologist: Ekaterina ARITA (R)([place]), [facility] Centerletter sent: Normal over 40Mammogram BI-RADS: 1 NegativeTranscriptionist: DionisioTranscribe Date/Time: Jan 31 2017 3:54PDictated by: OUMAR FRIEND MDThis examination was interpreted and the report reviewed and electronically signed by: OUMAR FRIEND MD on Jan 31 2017 4:14PM [id number] Normal [facility] PROGRESSon 01-31-2017 PROGRESS HNO ID: [id number] thor: Ashely Mathewe: (none)Author Type: PhysicianType: Progress NotesFiled: 01/31/2017 4:45 PMNote Text:Trina Davis is a 51 year old who presents for her annualgynecologic exam without complaints. Pt had blood drawn for insurance- hadCEA that was elevated. 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 [facility] [facility] [place] this yearPostmenopausal: Yes supracervical hysterectomyHRT use: yes Vivelle dotLast Pap: 2015 normalHPV: 2015 negativeHistory of abnormal pap: NoLast mammogram: 2016 normalHistory of abnormal mammogram: NoSexually active: YesHistory of STDS: NonePatient concerns for STD exposure: No.Pain with intercourse: NoPostcoital bleeding: NoHot flashes: NoNight sweats: NoVaginal dryness: NoExercise: routineDiet: baalncedObstetric History T0 L0 SAB0 TAB0 Ectopic0 Multiple0 Live Acoxsn1GKRV MEDICAL HISTORYDiagnosis Date- CANDIDAL VULVOVAGINITIS 02/25/2005- Disorder of left rotator cuff 04/11/2015- Lump or mass in breast 07/08/2012- Osteoarthritis of both knees 04/11/[address] Serrato.- PMH - PAST MEDICAL HISTORY OF fibroid and heavy bleeding, hence a hysterectomy with no cervix removal- Rosacea 11/01/2011- S/P subtotal hysterectomy 11/01/2011- Symptomatic menopausal or female climacteric states 12/25/2012PAST SURGICAL HISTORYProcedure Laterality Date- COLONOSCOP W/ OR W/O BRSH SPEC 06/19/2015 Colonoscopy- LIGATE FALLOPIAN TUBE 1993- TOTAL ABDOM HYSTERECTOMY 09/2005 still has ovaries and cervixFAMILY HISTORYProblem Relation Age of Onset- Diabetes Mother Type 2- Heart Father had a couple of heart proceedures / HEART ATTACK 05/21/08- Hypertension Father- Diabetes Father Type 2- Diabetes Maternal Grandmother age on set- COPD Paternal Grandmother- Diabetes Paternal Grandmother- Breast Cancer Paternal Grandmother- Colon Cancer Paternal Grandmother- Breast Cancer Maternal Aunt- Hypertension Other both sides of family- Breast Cancer Paternal Aunt- Diabetes Brother Type 2SOCIAL HISTORYSocial HistorySubstance Use Topics- Smoking status: Never Smoker- Smokeless tobacco: Never Used- Alcohol use Yes Comment: "Very little"REVIEW OF SYSTEMSAbdomen: No abdominal pain, nausea, vomiting, diarrhea, or constipation.No bloating, early satiety, indigestion, or increased flatulence.Bladder: No dysuria, gross hematuria, urinary frequency, urinary urgency,or incontinenceBreast: No breast lumps, nipple d/c, overlying skin changes, redness orskin retractionAllergies and current medication updated:YesEXAM: LMP 08/28/2005GENERAL: pleasant, female in no apparent distressHEENT: Normocephalic, atraumatic, mucus membranes moist and no lesionsNECK: Supple, full range of motion, no adenopathy and thyroid normalDERMATOLOGY: Normal, without lesions, non-icteric and non-hirsuteBREAST: soft, non-tender, symmetric, no dominant mass, normalnipple-areolar complex, no lymphadenopathy and no nipple dischargeABDOMEN: soft, non-tender and no massesPELVIC: external genitalia normal, normal Bartholin's glands, urethra,Grants's glands, no vulvar lesions, no cervical lesions, good vaginalsupport, physiologic discharge present, normal appearing perineal body andperianal regionBIMANUAL: no adnexal masses, non-tender and uterus surgically absentRECTOVAGINAL: deferred.NEURO: alert and oriented x3,exam grossly non-focalEXTREMITIES: normalASSESSMENT/PLAN:1) Health maintenance:Pap/HPV up to date.Mammogram orderedMammogram up to dateNutrition, exercise and routine health maintenance exams reviewed.Calcium/Vitamin D supplementation information provided.Colon cancer screening: up to date with screening2) Follow up one year or sooner as needed3) reviewed many benign reasons for CEA to be elevated- pt very anxious-will get pelvic us but on exam nothing suspicious or concerning noted.Ashely Degroot MD Normal [facility] CBC and Differentialon 01-28 Abs Baso 0.03 k/uL Normal <0.11 [facility] Comment on above: Performed By: #### C BCDIF, TSH, CEA ####[place] [address] [address] [place] [phone] Abs [place] 0.37 k/uL Normal <0.87 [facility] Comment on above: Performed By: #### C BCDIF, TSH, CEA ####[place] [address] [address] [place] [phone] Abs Neut 3.46 k/uL Normal 1.45-7.50 [facility] Comment on above: Performed By: #### C BCDIF, TSH, CEA ####[place] [address] [address] [place] [phone] Basophils/100 WBC Auto (Bld) 0.5 % Normal [facility] Comment on above: Performed By: #### C BCDIF, TSH, CEA ####[place] [address] [address] [phone] DTYPE Auto Diff Normal [facility] Comment on above: Performed By: #### C BCDIF, TSH, CEA ####[place] [address] [address] [place] [phone] Eosinophils 0.19 10*3/uL Normal <0.46 [facility] Comment on above: Performed By: #### C BCDIF, TSH, CEA ####[place] [address] [address] [place] [phone] Eosinophils/100 leukocytes 3.2 % Normal [facility] Comment on above: Performed By: #### C BCDIF, TSH, CEA ####[place] [address] [address] [place] [phone] Erythrocyte distribution width Auto Ratio (RBC) 12.3 % Normal 11.5-15.0 [facility] Comment on above: Performed By: #### C BCDIF, TSH, CEA ####[facility]ClevelScottsville, [place] [phone] Erythrocytes (RBC) 10*6/uL Normal <0.01 [facility] Comment on above: Performed By: #### C BCDIF, TSH, CEA ####[place] [address] [address] [place] [phone] Erythrocytes (RBC) 0.0 /100 WBC Normal 0 [facility] Comment on above: Performed By: #### C BCDIF, TSH, CEA ####[place] [address] [address]CCul[address] [place], [place] [phone] Erythrocytes (RBC) 4.69 10*6/uL Normal 3.90-5.20 [facility] Comment on above: Performed By: #### C BCDIF, TSH, CEA ####[place] [address] [address] [place] [phone] Hematocrit (HCT) 44.5 % Normal 36.0-46.0 [facility] Comment on above: Performed By: #### C BCDIF, TSH, CEA ####[place] [address] [address], [place] [phone] Hemoglobin mass conc (Bld) 14.9 g/dL Normal 11.5-15.5 [facility] Comment on above: Performed By: #### C BCDIF, TSH, CEA ####[place] [address] [address] [place] [phone] Lymphocytes 1.81 10*3/uL Normal 1.00-4.00 [facility] Comment on above: Performed By: #### C BCDIF, TSH, CEA ####[place] [address] [address] [place] [phone] Lymphocytes/100 leukocytes 30.9 % Normal [facility] Comment on above: Performed By: #### C BCDIF, TSH, CEA ####[place] [address] [address] [place] [phone] MCH 31.8 pG Normal 26.0-34.0 [facility] Comment on above: Performed By: #### C BCDIF, TSH, CEA ####[address] AvFrank Ville [phone] MCHC mass conc (RBC) 33.5 g/dL Normal 30.5-36.0 [facility] Comment on above: Performed By: #### C BCDIF, TSH, CEA ####[place] [phone] MCV 94.9 fL Normal 80.0-100.0 [facility] Comment on above: Performed By: #### C BCDIF, TSH, CEA ####[address] AvFrank [place] [phone] Monocytes/100 leukocytes 6.3 % Normal [facility] Comment on above: Performed By: #### C BCDIF, TSH, CEA ####[place] [phone] Neutrophils/100 WBC Auto (Bld) 59.1 % Normal [facility] Comment on above: Performed By: #### C BCDIF, TSH, CEA ####[address] AvFrank [place] [phone] Platelet mean volume (PMV) 10.3 fL Normal 9.0-12.7 [facility] Comment on above: Performed By: #### C BCDIF, TSH, CEA ####[address]CStephen [place] [phone] Platelets 228 10*3/uL Normal 150-400 [facility] Comment on above: Performed By: #### C BCDIF, TSH, CEA ####[facility] [address] [place], [place] [phone] WBC (Leukocytes) 5.86 10*3/uL Normal 3.70-11.00 [facility] Comment on above: Performed By: #### C BCDIF, TSH, CEA ####[facility] [address] AvMer[address], [place] [phone] CEAon 01-28-2017 CEA 8.7 ng/mL High 0.0-2.9 [facility] Comment on above: Result Comment: Test analyzed by the Qustodio DxI method. Performed By: #### C BCDIF, TSH, CEA ####[facility] [address] AvMer[place], [place] [phone] CNOVon 01-28-2017 CNOV Office Visit (INTMWS) ARTHURJEANNESTOR Eid ([id number]) 1965 [facility] Time Provider Slejgnrpuo34/21/17 8:00 AM PASTOR NAIK INTMWS During your visit today, we recorded the following information about you: Pulse Respiration Blood pressure Weight 80/minute 12/minute 129/90 84.8 kgPastor Naik MD 01/28/2017 9:14 AM SignedThis note was created using NoteWriter.TamiTrina Davis is a 51 year old female.Concern was elevated CEA on life insurance screening. She had no history ofcancer, and all her health screenings were current. She had protracted coughlast year. She was scheduled to see gynecology this week.She also mentioned tinnitus. 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 Her blood pressure was elevated then, but came down. Her insurancescreening blood pressure was normal.She had chronic insomnia, sleep maintenance. Family stressors werecontributing, and depression and anxiety were noted. Serax was rarely used.Energy level was variable.ACTIVE PROBLEM LISTS/P Subtotal HysterectomyRosaceaLump Or Mass in BreastSymptomatic Menopausal Or Female Climacteric StatesOsteoarthritis of Both KneesMixed IncontinenceAdjustment Disorder With Mixed Anxiety and Depressed MoodTinnitus of Both EarsCurrent Outpatient Prescriptions:estradiol (VIVELLE-DOT) 0.05 mg/24 hr Apply 1 Patch as directed once each week.TWICE WEEKLYoxazepam (SERAX) 15 mg capsule Take 1 capsule by mouth at bedtime as needed.nystatin-triamcino lone ointment Apply 1 application to affected area asdirected.COMPOUNDED PRESCRIPTION takes a probiotic and a prebiotic, an immune busterCOMPLETE MULTIVITAMIN TABtraZODone (DESYREL) 50 mg tablet Take 1 tablet by mouth daily at bedtime.No current facility-administered medications for this visit.Social History Marital status: Spouse name: Fawn Years of education: 14 Number of children: 0Occupational 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 Negative for sore throat,trouble swallowing and voice change.Respiratory: Negative.Gastrointestinal : Negative.Genitourinary: Negative.Hematological: Negative.Psychiatric/Beha vioral: Positive for dysphoric mood and sleep disturbance. Thepatient is nervous/anxious.Objective BP 129/90 Pulse 80 Resp 12 Wt 84.8 kg (187 lb) LMP 08/28/2005 BMI29.29 kg/v0Pcxhtuqg ExamConstitutional: She appears well-developed and well-nourished.HENT:Right Ear: Tympanic membrane and ear canal normal.Left Ear: Tympanic membrane and ear canal normal.Neck: No thyromegaly present.Cardiovascular: Normal rate and regular rhythm.Pulmonary/Chest: Effort normal and breath sounds normal.Abdominal: There is no hepatosplenomegaly.Muscul oskeletal: She exhibits no edema.Lymphadenopathy: She has no cervical adenopathy.Psychiatric: She has a normal mood and affect.PHQ-9=9 see flowsheet.ASSESSMENT/PLAN :1. Elevated CEA - ICD9: 795.81, ICD10: R97.0 (primary diagnosis)Doubtful significance. Keep gynecology appointment and mammogram.- CBC + DIFF- CEA BLD2. Malaise and fatigue - ICD9: 780.79, ICD10: R53.81, R53.83- CBC + DIFF- TSH BLD3. Cough - ICD9: 786.2, ICD10: R05- XR CHEST 2V FRONTAL/LAT4. Screening for colon cancer - ICD9: V76.51, ICD10: Z12.11- FECAL OCCULT BLOOD TEST5. Adjustment disorder with mixed anxiety and depressed mood - ICD9: 309.28,ICD10: F43.23New medication. Discussed medication dosage, usage, goals of therapy, and sideeffects.- TRAZODONE 50 MG TABLET6. Elevated blood pressure reading - ICD9: 796.2, ICD10: R03.0Avoid caffeine for BP check.- BP true this Friday.7. Tinnitus of both ears - ICD9: 388.30, ICD10: H93.13Likely from noise exposure as discussed.- CONSULT TO Janet Blas Provider: SELF [200]Allergies As of Date: 01/28/2017 Noted Allergy ReactionHONEY 11/29/2014 8 - GI Upset Comments: Pt had raw honey from the fair.SULFA (SULFONAMIDE ANTIBIOTICS) 02/22/2005 4 - HivesDate Reviewed: 01/28/2017Reviewed by: Fadia Walters LPN - Fully AssessedReason for Visit: Recheck [92] Cmt: follow upPrimary Visit Diagnosis:Elevated CEA [R97.0] Other Visit Diagnoses:Malaise and fatigue [R53.81, R53.83] Cough [R05] Screening for colon cancer [Z12.11] Adjustment disorder with mixed anxiety and depressed mood [F43.23] Elevated blood pressure reading [R03.0] Tinnitus of both ears [H93.13]Order(s):HBA1C (OUTSIDE) [3347825] Order #: [id number] LIPID PANEL (OUTSIDE) [7537247] Order #: [id number] CBC + DIFF [SQCBCDIF] Order #: [id number] FUTURE CEA BLD [SQCEA] Order #: [id number] FUTURE FECAL OCCULT BLOOD TEST [SQIFOBT] Order #: [id number] FUTURE TSH BLD [SQTSH] Order #: [id number] FUTURE XR CHEST 2V FRONTAL/LAT [7906477] Order #: [id number] FUTURE traZODone (DESYREL) 50 mg tabletTake 1 tablet by mouth daily at bedtime.Disp: 30 tabletRfl: 2 CONSULT TO ENT [9008] Order #: [id number]: 1Prescriptions as of 01/28/2017 Sig: ESTRADIOL 0.05 MG/24 HR SEMIW* Apply 1 Patch as directed onc* OXAZEPAM 15 MG CAPSULE Take 1 capsule by mouth at be* NYSTATIN-TRIAMCINOLONE 100,00* Apply 1 application to affect* * COMPOUNDED PRESCRIPTION takes a probiotic and a prebi* * COMPLETE MULTIVITAMIN TABLET TRAZODONE 50 MG TABLET Take 1 tablet by mouth daily *Medication notes this encounter METROGEL 0.75 % TOPICAL >> Fadia Walters INVASIVE MANAGER 01/28/2017 8:05 AM >> FADIA WALTERS LPN FriJan 28, 2017 8:05 AM Not currently using DIFFERIN 0.1 % TOPICAL CREAM >> Fadia Walters INVASIVE MANAGER 01/28/2017 8:06 AM >> FADIA WALTERS LPN Jan 28, 2017 8:06 AM Not currently usingProblem List As Of Date 01/28/2017 Noted Resolved CANDIDAL VULVOVAGINITIS [B37.3] INVALID FOR*04/11/2015 S/P subtotal hysterectomy [Z90.711] INVALID FOR* Rosacea [L71.9] INVALID FOR* More... Lump or mass in breast [N63.0] INVALID FOR* Symptomatic menopausal or female climacteric st*INVALID FOR* Osteoarthritis of both knees [M17.0] INVALID FOR* More... Mixed incontinence [N39.46] INVALID FOR* Adjustment disorder with mixed anxiety and depr*INVALID FOR* Tinnitus of both ears [H93.13] INVALID FOR*Prescriptions ordered this encounter Disp Refills Start End TRAZODONE 50 MG TABLET 30 t* 2 01/28/2017 Route: ORAL Sig: Take 1 tablet by mouth daily at bedtime.Medications Discontinued During This Encounter albuterol HFA (PROVENTIL HFA, VENTOL* 1 In* 1 12/20/2015 01/28/2017 Route: INHALATION Sig: Inhale 2 Puffs as instructed every 6 hours as needed for Wheezing/Shortness of Breath. Disc: Reason for discontinue is not on file. METROGEL 0.75 % TOPICAL 0 02/25/2005 01/28/2017 Class: Med Update Route: TOPICAL Sig: Disc: Reason for discontinue is not on file. DIFFERIN 0.1 % TOPICAL CREAM 0 02/25/2005 01/28/2017 Class: Med Update Route: TOPICAL Sig: Disc: Reason for discontinue is not on file.Disposition: Return in about 5 months (around 06/28/2017), or if symptoms worsen or fail to improve.Follow-up and Disposition History Recorded Questionnair e: PHQ-9Little interest or pleasure in doing things -> 1 SEVERAL DAYSFeeling down, depressed, or hopeless -> 1Trouble falling or staying asleep, or sleeping too much -> 3Feeling tired or having little energy -> 1Poor appetite or overeating -> 1Feeling bad yourself-you are a failure or have let yourself or others -> 1Trouble concentrating, like reading the paper or watching TV -> 1Moving/speaking slowly (others notice) OR being more fidgety/restless -> 0Thoughts that you would be better off or of hurting yourself -> 0PHQ TOTAL SCORE = -> 9PHQ problems effect on difficulty of work, home, and social activity: -> 2 - SOMEWHAT DIFFICULTEncounter Number: [id number] Status:Closed by PASTOR NAIK MD on 01/28/17 Normal [facility] Fecal Occult Bld Tston 01-28 Immuno FOB Negative Normal Negative [facility] Comment on above: Result Comment: This test was developed and its performance characteristics determined by [facility]'s Braulio Cisse [facility] [place] ([facility]).It has not been cleared or approved by the FDA. [facility] is regulated under CLIA as qualified to perform high-complexity testing.This test is used for clinical purposes. It should not be regarded as investigational or for research. Performed By: #### I FOBT ####[facility] [address] [place], [place] [phone] PROGRESSon 01-28-2017 PROGRESS HNO ID: [id number] thor: Betty Gordon RtService: (none)Author Type: (none)Type: Progress NotesFiled: 01/28/2017 9:24 AMNote Text: Radiology Service Progress NotePATIENT NAME: Trina WorthyRN: [id number] OF SERVICE: January 28, 2017TIME: 9:17 AMPATIENT IDENTITY VERIFICATION COMPLETED USING TWO (2) METHODS: Patientconfirmed name verbally and Date of .PATIENT GENDER DATA: Female. status: : NoBreastfeeding status: NO.PATIENT RELEVANT IMPLANT DATA REVIEWED: Not ApplicableRADIOLOGY DEPARTMENT: General X-ray: Exam(s) Completed: Chest X-RayPERIPHERAL IV DATA: Not applicableSIGNED BY: Betty Gordon RtNov2016 9:17 AM Normal [facility] PROGRESS HNO ID: [id number] thor: Pastor Livingston: (none)Author Type: PhysicianType: Progress NotesFiled: 01/28/2017 9:14 AMNote Text:This note was created using Recycling Angelriter.Gabriela Davis is a 51 year old female.Concern was elevated CEA on life insurance screening. She had no historyof cancer, and all her health screenings were current. She had protractedcough last year. She was scheduled to see gynecology this week.She also mentioned tinnitus. 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 Her blood pressure was elevated then, but came down. Herinsurance screening blood pressure was normal.She had chronic insomnia, sleep maintenance. Family stressors werecontributing, and depression and anxiety were noted. Serax was rarelyused. Energy level was variable.ACTIVE PROBLEM LISTS/P Subtotal HysterectomyRosaceaLump Or Mass in BreastSymptomatic Menopausal Or Female Climacteric StatesOsteoarthritis of Both KneesMixed IncontinenceAdjustment Disorder With Mixed Anxiety and Depressed MoodTinnitus of Both EarsCurrent Outpatient Prescriptions:estradiol (VIVELLE-DOT) 0.05 mg/24 hr Apply 1 Patch as directed once eachweek. 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 Negative for sore throat,trouble swallowing and voice change.Respiratory: Negative.Gastrointestinal : Negative.Genitourinary: Negative.Hematological: Negative.Psychiatric/Beha vioral: Positive for dysphoric mood and sleep disturbance.The patient is nervous/anxious.Objective BP 129/90 Pulse 80 Resp 12 Wt 84.8 kg (187 lb) LMP 08/28/2005 BMI 29.29 kg/v9Eicnkali ExamConstitutional: She appears well-developed and well-nourished.HENT:Right Ear: Tympanic membrane and ear canal normal.Left Ear: Tympanic membrane and ear canal normal.Neck: No thyromegaly present.Cardiovascular: Normal rate and regular rhythm.Pulmonary/Chest: Effort normal and breath sounds normal.Abdominal: There is no hepatosplenomegaly.Muscul oskeletal: She exhibits no edema.Lymphadenopathy: She has no cervical adenopathy.Psychiatric: She has a normal mood and affect.PHQ-9=9 see flowsheet.ASSESSMENT/PLAN :1. Elevated CEA - ICD9: 795.81, ICD10: R97.0 (primary diagnosis)Doubtful significance. Keep gynecology appointment and mammogram.- CBC + DIFF- CEA BLD2. Malaise and fatigue - ICD9: 780.79, ICD10: R53.81, R53.83- CBC + DIFF- TSH BLD3. Cough - ICD9: 786.2, ICD10: R05- XR CHEST 2V FRONTAL/LAT4. Screening for colon cancer - ICD9: V76.51, ICD10: Z12.11- FECAL OCCULT BLOOD TEST5. Adjustment disorder with mixed anxiety and depressed mood - ICD9:309.28, ICD10: F43.23New medication. Discussed medication dosage, usage, goals of therapy, andside effects.- TRAZODONE 50 MG TABLET6. Elevated blood pressure reading - ICD9: 796.2, ICD10: R03.0Avoid caffeine for BP check.- BP true this Friday.7. Tinnitus of both ears - ICD9: 388.30, ICD10: H93.13Likely from noise exposure as discussed.- CONSULT TO ENTVictor Mariel Naik MD Normal [facility] TSHon 01-28-2017 Thyroid stimulating hormone (TSH) 2.850 uU/mL Normal 0.400-5.500 [facility] Comment on above: Performed By: #### C BCDIF, TSH, CEA ####[facility] [id number] [place], [place] [phone] XR CHEST 2V FRONTAL/LATon XR CHEST 2V FRONTAL/LAT * * *Final Repor t* * *DATE OF EXAM: Jan 28 2017 9:24AM WOX [id number] - XR CHEST 2V FRONTAL/LAT / REASON: Cough * * * * Physician Interpretation * * * * EXAMINATION: CHEST RADIOGRAPH (2 VIEW FRONTAL and LATERAL)Clinical History: CoughM: XC2_3Comparison: 12/20/2015RESULT:Lines, tubes, and devices: None.Lungs and pleura: No consolidation, pleural effusion or pneumothorax.Cardiomedias tinal silhouette: Stable.Other: No acute osseous abnormality is identified.IMPRESSION:No acute radiographic abnormality is identified.Transcriptioni st: PSCB Transcribe Date/Time: Jan 28 2017 10:40ADictated by : MARY ORTIZ MDThis examination was interpreted and the report reviewed and electronically signed by: MARY ORTIZ MD on Jan 28 2017 10:43AM [id number] Normal [facility] CNPNon 12-16-2016 CNPN Telephone (WHQ) TRINA DAVIS ([id number]) 1965 [facility] Time Provider Wxcuzuhemx74/9/17 ASHELY ASHLEY Shereen During your visit today, we recorded the following information about you:Layne Gonzales Psr 12/16/2016 4:03 PM SignedPt has been scheduled for her Annual exam and mammogram. Please enter the neworder for the screening mammo and I will attach to the visit. Thank Edmar Suarez RN 12/16/2016 4:06 PM SignedAddended by: CHANO SUAREZ RN on: 12/16/2016 04:06 PM Modules accepted: Marivel Degroot MD 12/16/2016 4:18 PM SignedorderClari Degroot MD 12/16/2016 4:18 PM SignedAddended by: ASHELY COLEMAN MD on: 12/16/2016 04:18 PM Modules accepted: Korin As of Date: 12/16/2016 Noted Allergy ReactionHONEY 11/29/2014 8 - GI Upset Comments: Pt had raw honey from the fair.SULFA (SULFONAMIDE ANTIBIOTICS) 02/22/2005 4 - HivesDate Reviewed: 05/22/2016Reviewed by: Aissatou Blanco Ma - Fully AssessedReason for Visit: Orders [681]Primary Visit Diagnosis:Encounter for screening mammogram for malignant neoplasm of breast [Z12.31]Order(s):[facility] SCREENING [[id number]] Order #: [id number] FUTUREPrescriptions as of 12/16/2016 Sig: ESTRADIOL 0.05 MG/24 HR SEMIW* Apply 1 Patch as directed onc* ALBUTEROL SULFATE HFA 90 MCG/* Inhale 2 Puffs as instructed * OXAZEPAM 15 MG CAPSULE Take 1 capsule by mouth at be* NYSTATIN-TRIAMCINOLONE 100,00* Apply 1 application to affect* * COMPOUNDED PRESCRIPTION takes a probiotic and a prebi* * METROGEL 0.75 % TOPICAL * DIFFERIN 0.1 % TOPICAL CREAM * COMPLETE MULTIVITAMIN TABLETProblem List As Of Date 12/16/2016 Noted Resolved CANDIDAL VULVOVAGINITIS [B37.3] INVALID FOR*04/11/2015 S/P subtotal hysterectomy [Z90.711] INVALID FOR* Rosacea [L71.9] INVALID FOR* More... Lump or mass in breast [N63.0] INVALID FOR* Symptomatic menopausal or female climacteric st*INVALID FOR* Osteoarthritis of both knees [M17.0] INVALID FOR* More... Mixed incontinence [N39.46] INVALID FOR* Status:Closed by LAYNE FREY on 12/16/16 [facility] OBSOLETEon 09-12-2016 OBSOLETE Refill (WOOB) [facility][id number][facility] 1965 [facility] Department09/12/16 ASHELY ASHLEY During your visit today, we recorded the following information about you:Aidee Padilla RN 09/12/2016 10:43 AM SignedPatient request for medication is as follows: States the 0.05 mg dose has beenworking well for herPending Prescriptions Disp Refills ESTRADIOL 0.05 MG/24 HR SEMIWEEKLY TRANSDERMAL PATCH 25 Patch 2 Sig: Apply 1 Patch as directed once each week. TWICE WEEKLY [place]: NoNext annual exam scheduled: 01/24/17Please approve the above prescription(s) to electronically send to pharmacy.Aidee shailesh RNAlljohanna As of Date: 09/12/2016 Noted Allergy ReactionHONEY 11/29/2014 8 - GI Upset Comments: Pt had raw honey from the fair.SULFA (SULFONAMIDE ANTIBIOTICS) 02/22/2005 4 - HivesDate Reviewed: 05/22/2016Reviewed by: Aissatou Blanco Ma - Fully AssessedReason for Visit: Refill Request [94]Order(s):estradiol (VIVELLE-DOT) 0.05 mg/24 hrApply 1 Patch as directed once each week. TWICE WEEKLYDisp: 25 PatchRfl: 2Prescriptions as of 09/12/2016 Sig: ESTRADIOL 0.05 MG/24 HR SEMIW* Apply 1 Patch as directed onc* ALBUTEROL SULFATE HFA 90 MCG/* Inhale 2 Puffs as instructed * OXAZEPAM 15 MG CAPSULE Take 1 capsule by mouth at be* NYSTATIN-TRIAMCINOLONE 100,00* Apply 1 application to affect* * COMPOUNDED PRESCRIPTION takes a probiotic and a prebi* * METROGEL 0.75 % TOPICAL * DIFFERIN 0.1 % TOPICAL CREAM * COMPLETE MULTIVITAMIN TABLETProblem List As Of Date 09/12/2016 Noted Resolved CANDIDAL VULVOVAGINITIS [B37.3] INVALID FOR*04/11/2015 S/P subtotal hysterectomy [Z90.711] INVALID FOR* Rosacea [L71.9] INVALID FOR* More... Lump or mass in breast [N63] INVALID FOR* Symptomatic menopausal or female climacteric st*INVALID FOR* Osteoarthritis of both knees [M17.0] INVALID FOR* More... Mixed incontinence [N39.46] INVALID FOR*Prescriptions ordered this encounter Disp Refills Start End ESTRADIOL 0.05 MG/24 HR SEMIWEEKLY T* 25 P* 2 09/12/2016 Route: TRANSDERM. Sig: Apply 1 Patch as directed once each week. TWICE WEEKLYMedications Discontinued During This Encounter estradiol (VIVELLE-DOT) 0.05 mg/24 hr 25 P* 2 05/22/2016 09/12/2016 Route: TRANSDERMAL Sig: Apply 1 Patch as directed once each week. TWICE WEEKLY Disc: Reason for discontinue is not on file. Status:Closed by ASHELY COLEMAN MD on 09/12/16 Normal [facility] Vital Signs Date Time Vital Sign Value Performing Clinician Suzy camp 10-05-2024 13:18-0400 Body height 170.[address] Alexander King MD Work Phone: [facility] 10-05-2024 13:18-0400 Body mass index (BMI) [Ratio] 27.6 kg/m2 Dr. Alexander King MD Work Phone: [facility] 10-05-2024 13:18-0400 Body weight 80.[address] Alexander King MD Work Phone: [facility] 10-05-2024 13:18-0400 Diastolic blood pressure 84 mm[Hg] Dr. Alexander King MD Work Phone: [facility] 10-05-2024 13:18-0400 Systolic blood pressure 124 mm[Hg] Dr. Alexander King MD Work Phone: [facility] 09-15-2024 10:30-0400 Body height 170.[address] Alexander King MD Work Phone: [facility] 09-15-2024 10:30-0400 Body mass index (BMI) [Ratio] 27.8 kg/m2 Dr. Alexander King MD Work Phone: [facility] 09-15-2024 10:30-0400 Body temperature 98.4 [degF] Dr. Alexander King MD Work Phone: [facility] 09-15-2024 10:30-0400 Body weight 80.[address] Alexander King MD Work Phone: [facility] 09-15-2024 10:30-0400 Diastolic blood pressure 86 mm[Hg] Dr. Alexander King MD Work Phone: [facility] 09-15-2024 10:30-0400 Heart rate 73 /min Dr. Alexander King MD Work Phone: 7(999)196-746511 [place] [address] 09-15-2024 10:30-0400 Respiratory rate 16 /min Dr. Alexander King MD Work Phone: 8(633)538-181011 [place] [address] 09-15-2024 10:30-0400 SaO2% (BldA) [Mass fraction] 98 % Dr. Alexander King MD Work Phone: 3(485)365-007711 [place] [address] 09-15-2024 10:30-0400 Systolic blood pressure 129 mm[Hg] Dr. Alexander King MD Work Phone: 5(475)424-429411 [place] [address] 07-13-2024 15:13-0400 Body mass index (BMI) [Ratio] 29.9 kg/m2 Dr. Alexander King MD Work Phone: 1(581)314-938211 [place] [address] 07-13-2024 15:13-0400 Body weight 86.[address] Alexander King MD Work Phone: 0(396)263-749011 [place] [address] 07-13-2024 15:13-0400 Diastolic blood pressure 86 mm[Hg] Dr. Alexander King MD Work Phone: 0(435)227-044411 [place] [address] 07-13-2024 15:13-0400 Systolic blood pressure 146 mm[Hg] Dr. Alexander Kign MD Work Phone: 3(467)219-501911 [place] [address] 03-20-2022 10:05-0500 Body height 170.[address] Alexander King Work Phone: 7(394)[phone] [place] [address] 03-20-2022 10:00-0500 Body mass index (BMI) [Ratio] 30.5 kg/m2 Dr. Alexander King Work Phone: 6(247)460-724611 [place] [address] 03-20-2022 10:00-0500 Body weight 88.[address] Alexander King Work Phone: [facility] 03-20-2022 10:00-0500 Diastolic blood pressure 82 mm[Hg] Dr. Alexander King Work Phone: [facility] 03-20-2022 10:00-0500 Systolic blood pressure 132 mm[Hg] Dr. Alexander King Work Phone: [facility] 03-07-2022 12:56-0500 Body mass index (BMI) [Ratio] 30.7 kg/m2 Dr. Alexander King Work Phone: [facility] 03-07-2022 12:56-0500 Body temperature 97.8 [degF] Dr. Alexander King Work Phone: [facility] 03-07-2022 12:56-0500 Body weight 88.[address] Alexander King Work Phone: [facility] 03-07-2022 12:56-0500 Diastolic blood pressure 88 mm[Hg] Dr. Alexander King Work Phone: [facility] 03-07-2022 12:56-0500 Heart rate 78 /min Dr. Alexander King Work Phone: [facility] 03-07-2022 12:56-0500 Respiratory rate 17 /min Dr. Alexander King Work Phone: [facility] 03-07-2022 12:56-0500 SaO2% (BldA) [Mass fraction] 97 % Dr. Alexander King Work Phone: [facility] 03-07-2022 12:56-0500 Systolic blood pressure 120 mm[Hg] Dr. Alexander King Work Phone: [facility] 10-16-2021 13:18-0400 Body height 170.[address] Alexander King Work Phone: [facility] Work Phone: 10-16-2021 13:18-0400 Body mass index (BMI) [Ratio] 29.6 kg/m2 Dr. Alexander King Work Phone: [facility] Work Phone: 10-16-2021 13:18-0400 Body temperature 98 [degF] Dr. Alexander King Work Phone: [facility] Work Phone: 10-16-2021 13:18-0400 Body weight 85.[address] Alexander iKng Work Phone: [facility] Work Phone: 10-16-2021 13:18-0400 Diastolic blood pressure 88 mm[Hg] Dr. Alexander King Work Phone: [facility] Work Phone: 10-16-2021 13:18-0400 Heart rate 74 /min Dr. Alexander King Work Phone: [facility] Work Phone: 10-16-2021 13:18-0400 Respiratory rate 1 /min Dr. Alexander King Work Phone: [facility] Work Phone: 10-16-2021 13:18-0400 SaO2% (BldA) [Mass fraction] 99 % Dr. Alexander King Work Phone: [facility] Work Phone: 10-16-2021 13:18-0400 Systolic blood pressure 122 mm[Hg] Dr. Alexander King Work Phone: [facility] Work Phone: 07-05-2021 14:44-0400 Body height 170.[address] Alexander King Work Phone: [facility] Work Phone: 07-05-2021 14:44-0400 Body mass index (BMI) [Ratio] 28.8 kg/m2 Dr. Alexander King Work Phone: [facility] Work Phone: 07-05-2021 14:44-0400 Body weight 83.[address] Alexander King Work Phone: [facility] Work Phone: 06-21-2021 13:42-0400 Diastolic blood pressure 92 mm[Hg] Dr. Alexander King Work Phone: [facility] Work Phone: 06-21-2021 13:42-0400 Heart rate 77 /min Dr. Alexander King Work Phone: [facility] Work Phone: 06-21-2021 13:42-0400 Respiratory rate 16 /min Dr. Alexander King Work Phone: [facility] Work Phone: 06-21-2021 13:42-0400 SaO2% (BldA) [Mass fraction] 99 % Dr. Alexander King Work Phone: [facility] Work Phone: 06-21-2021 13:42-0400 Systolic blood pressure 134 mm[Hg] Dr. Alexander King Work Phone: [facility] Work Phone: 06-21-2021 13:42-0400 Diastolic blood pressure 92 mm[Hg] Dr. Alexander King Work Phone: [facility] Work Phone: 06-21-2021 13:42-0400 Heart rate 77 /min Dr. Alexander King Work Phone: [facility] Work Phone: 06-21-2021 13:42-0400 Respiratory rate 16 /min Dr. Alexander King Work Phone: [facility] Work Phone: 06-21-2021 13:42-0400 SaO2% (BldA) [Mass fraction] 99 % Dr. Alexander King Work Phone: [facility] Work Phone: 06-21-2021 13:42-0400 Systolic blood pressure 134 mm[Hg] Dr. Alexander King Work Phone: [facility] Work Phone: 03-23-2021 14:25-0500 Body height 170.[address] Alexander King Work Phone: [facility] Work Phone: 03-23-2021 14:25-0500 Body mass index (BMI) [Ratio] 28.1 kg/m2 Dr. Alexander King Work Phone: [facility] Work Phone: 03-23-2021 14:25-0500 Body weight 81.[address] Alexander King Work Phone: [facility] Work Phone: 03-01-2021 09:34-0500 Body temperature 98.9 [degF] Dr. Alexander King Work Phone: [facility] Work Phone: 03-01-2021 09:34-0500 Diastolic blood pressure 94 mm[Hg] Dr. Alexander King Work Phone: [facility] Work Phone: 03-01-2021 09:34-0500 Heart rate 74 /min Dr. Alexander King Work Phone: [facility] Work Phone: 03-01-2021 09:34-0500 SaO2% (BldA) [Mass fraction] 98 % Dr. Alexander King Work Phone: [facility] Work Phone: 03-01-2021 09:34-0500 Systolic blood pressure 146 mm[Hg] Dr. Alexander King Work Phone: [facility] Work Phone: Encounters Encounter Date Encounter Type Care Provider Facility Start: 10-05-2024 End: 10-05-2024 Patient encounter procedure Merary Dodge NUCLEAR EQUIPMENT RESEARCH ENGINEER-C -[facility] Work Phone: Start: 10-05-2024 End: 10-05-2024 Patient encounter status Merary Dodge NUCLEAR EQUIPMENT RESEARCH ENGINEER-C [facility] Start: 10-05-2024 End: 10-05-[address] Alexander King MD Work Phone: -[facility] Start: 09-30-2024 End: 09-30-[address] Alexander King MD Work Phone: -[facility] Start: 09-30-2024 End: 09-30-2024 Patient encounter procedure Merary Dodge NUCLEAR EQUIPMENT RESEARCH ENGINEER-C -[facility] Work Phone: Start: 09-30-2024 End: 09-30-2024 ambulatory Alexander King Facility:[facility] Start: 09-15-2024 End: 09-15-[address] Manuel Henderson MD -[facility] Work Phone: Start: 09-15-2024 End: 09-15-[address] Alexander King MD Work Phone: -[facility] Start: 07-15-2024 End: 07-15-2024 Patient encounter procedure Merary Dodge NUCLEAR EQUIPMENT RESEARCH ENGINEER-C -[facility] Work Phone: Start: 07-15-2024 End: 07-15-2024 ambulatory Alexander King Facility:[facility] Start: 06-22-2024 End: 06-22-[address] Alexander King MD Work Phone: [facility] Work Phone: Start: 06-22-2024 End: 06-22-[address] Alexander King MD -[facility] Start: 06-22-2024 End: 06-22-2024 ambulatory Alexander King Facility:[facility] Start: 05-24-2024 End: 05-24-[address] Alexander King MD Work Phone: [facility] Work Phone: Start: 05-24-2024 End: 05-24-[address] Manuel Henderson MD -[facility] Work Phone: Start: 05-24-2024 End: 05-24-2024 ambulatory Manuel Henderson Facility:[facility] Start: 06-26-2023 End: 06-26-[address] [facility] Work Phone: Start: 06-26-2023 End: 06-26-2023 [facility] Start: 05-29-2023 End: 05-29-[address] [facility] Work Phone: Start: 05-29-2023 End: 05-29-2023 [facility] Start: 11-13-2022 End: 11-13-[address] [facility] Work Phone: Start: 11-13-2022 End: 11-13-2022 Patient encounter procedure [facility] Work Phone: Start: 03-26-2022 End: 03-26-[address] Alexander King Work Phone: [facility] Work Phone: Start: 03-26-2022 End: 03-26-[address] Alexander King Work Phone: [facility]-Outpatient Breast Imaging Start: 03-20-2022 End: 03-20-[address] Alexander King Work Phone: [facility] Start: 03-07-2022 End: 03-07-[address] Alexander King Work Phone: [facility] Start: 10-16-2021 End: 10-16-[address] Alexander King Work Phone: [facility] Start: 10-12-2021 End: 10-12-[address] Alexander King Work Phone: [facility]-Ultrasound, [facility] Start: 10-03-2021 End: 10-03-[address] Alexander King Work Phone[facility] Start: 07-31-2021 End: 07-31-[address] Alexander King Work Phone[facility] Start: 07-05-2021 End: 07-05-[address] Alexander King Work Phone: [facility] Start: 06-21-2021 End: 06-21-[address] Alexander King Work Phone: [facility] Start: 06-18-2021 End: 06-18-[address] Alexander King Work Phone: [facility] Start: 05-31-2021 End: 05-31-[address] [facility] Start: 04-13-2021 End: 04-13-[address] Alexander King Work Phone: [facility]-Outpatient Breast Imaging Start: 03-23-2021 End: 03-23-[address] Alexander King Work Phone: [facility]-Pulmonary [facility] Start: 03-21-2021 End: 03-21-[address] Alexander King Work Phone: [facility]-Laboratory, Specimen Start: 03-01-[address] Alexander King [facility] [place] Start: 03-01-2021 End: 03-01-[address] Alexander King Work Phone: [facility] Start: 07-08-2017 End: 07-08-2017 Ambulatory PASTOR Floyd HEENA [facility] Start: 06-30-2017 End: 07-02-2017 Ambulatory PASTOR Floyd NAIK [facility] Start: 05-26-2017 End: 05-27-2017 Ambulatory PASTOR JEONGQUEZ [facility] Start: 02-05-2017 End: 02-12-2017 Ambulatory DOMINIQUE LAZO [facility] Start: 01-31-2017 End: 02-03-2017 Ambulatory ASHELY COLEMAN [facility] Start: 01-28-2017 End: 01-28-2017 Ambulatory PSATOR Floyd NAIK [facility] Start: 01-28-2017 End: 01-28-2017 Ambulatory PASTOR Floyd HEENA [facility] Procedures Date Procedure Procedure Detail Performing Clinician Start: 09-30-2024 Screening mammography Raji King MD Work Phone: Start: 06-22-2024 Urnls dip stick/tabl et reagent auto microscopy Dr. Alexander King MD Work Phone: Start: 06-22-2024 Vitamin D, 25-hydrox y measurement Dr. Alexander King MD Work Phone: Comment on above: Vitamin D StatusDefi ciency: <20 ng/mL (50nmol/L)Insufficiency: 20-30 ng/mL (50-75 nmol/L)Sufficiency: 30-100 ng/mL (75-250 nmol/L)Toxicity: >100 ng/mL (>250 nmol/L) Start: 05-24-2024 MRI of brain with contrast Dr. Alexander King MD Work Phone: Start: 06-26-2023 End: 06-26-2023 Radiologic examination of knee Start: 11-13-2022 MRI of brain with contrast Start: 03-26-2022 Bilateral mammography Raji King Work Phone: Start: 03-26-[address] Alexander King Work Phone: Start: 10-12-2021 US scan of thyroid Dr. Alexander King Work Phone: Start: 07-31-2021 Radiologic examinati on of knee Dr. Alexander King Work Phone: Start: 06-18-2021 MRI of brain with contrast Dr. Alexander King Work Phone: Start: 04-13-2021 Screening mammography Raji King Work Phone: Start: 03-01-2021 X-ray of cervical spine Dr. Alexander King Work Phone: H/O: tubal ligation History of b ilateral ligation of fallopian tubes Dr. Alexander King MD Work Phone: History of total hysterectomy History of total abdominal hysterectomy Dr. Alexander King MD Work Phone: Comment on above: still has ovaries, p ostmenopausal Plan of Treatment Date Care Activity Detail Author Start: 09-30-2024 MG Breast - bilateral Screening [facility] MR Brain WO and W contrast IV [facility] Patient referral [facility] Work Phone: Payers Date Payer Category Payer Self-pay [id number] 2023 Unknown [id number] Unknown [id number] Unknown [id number] Unknown [id number] 2.16.8 [id number] Unknown [id number] 2.16.8 [id number] Unknown [id number] 2.16.8 [id number] Unknown [id number] 2.16.8 [id number] Unknown [id number] 2.16.8 [id number] Unknown [id number] 2.16.8 [id number] Social History Date Type Detail Facility Start: 06-21-2021 End: 11-27-2022 Tobacco smoking status NEIS Unknown if ever smoked [facility] Start: 1965 Sex Assigned At Female [facility] Start: 08-08-2023 End: 07-13-2024 Tobacco smoking status NHIS Never smoked tobacco (finding) [facility] Start: 05-31-2024 End: 07-02-2024 Sex Female (finding) [facility] Evaluation note 07-15-2024 Note Date & Type Note Facility 07-15-2024 Evaluation note Diagnosis Onset Date Resolution Dyspareunia acute July 15, 2024 8:34am Hot flashes due to menopause acute July 15, 2024 8: 34am Menopausal and female climacteric states acute July 15, 2024 8:34am [employer] Work Phone: Evaluation note 07-15-2024 Note Date & Type Note Facility 07-15-2024 Evaluation note Diagnosis Onset Date Resolution Dyspareunia acute July 15, 2024 8:34am Hot flashes due to menopause acute July 15, 2024 8: 34am Menopausal and female climacteric states acute July 15, 2024 8:34am Burning mouth syndrome chronic Ju ly 2024 10:28am Intracranial meningioma chronic J sophia 2024 10:28am Oral dyskinesia chronic Hilaria 2024 10:28am Encounter for routine gynecological examination noneactive October 05, 2024 1:17pm [facility] Work Phone: Evaluation note 07-15-2024 Note Date & Type Note Facility 07-15-2024 Evaluation note Diagnosis Onset Date Resolution Dyspareunia acute July 15, 2024 8:34am Hot flashes due to menopause deleted July 15, 2024 8: 34am Menopausal and female climacteric states deleted July 15, 2024 8:34am Burning mouth syndrome chronic Ju ly 2024 10:28am Intracranial meningioma chronic J sophia 2024 10:28am Oral dyskinesia chronic September 15, 2024 10:28am 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 Work Phone: Evaluation note Note Date & Type Note Facility Evaluation note Diagnosis Onset Date Intracranial meningioma chronic manager jadya Oral dyskinesia chronic Burning mouth syndrome resol lc Headache resolved Neck pain resolved COVID-19 acute Intracranial meningioma chronic manager jayda Oral dyskinesia chronic Headache resolved Neck pain resolved [facility] Work Phone: Evaluation note Note Date & Type Note Facility Evaluation note Diagnosis Onset Date Intracranial meningioma chronic manager jayda Oral dyskinesia chronic Headache resolved Neck pain resolved Climacteric chronic [facility] Work Phone: Evaluation note Note Date & Type Note Facility Evaluation note Diagnosis Onset Date Intracranial meningioma chronic manager jayda Oral dyskinesia chronic Headache resolved Neck pain resolved Climacteric chronic Encounter for routine gyneco logical examination noneactive [facility] Work Phone: Evaluation note Note Date & Type Note Facility Evaluation note Diagnosis Onset Date Intracranial meningioma chronic manager jayda Oral dyskinesia chronic Headache resolved Neck pain resolved Climacteric chronic Encounter for routine gyneco logical examination noneactive Intracranial meningioma chronic manager jayda Oral dyskinesia chronic Headache resolved Neck pain resolved [facility] Work Phone: Evaluation note Note Date & Type Note Facility Evaluation note Diagnosis Onset Date Arthritis chronic Intracranial meningioma chronic manager jayda Oral dyskinesia chronic Breast pain, right acute [facility] Work Phone: Evaluation note Note Date & Type Note Facility Evaluation note No assessment information availa ble [facility] Work Phone: Reason for referral (narrative) Note Date & Type Note Facility Reason for referral (narrative) No reason for referral information available [facility] Work Phone: Summary Purpose Family History No Family History Records Found Relationship Condition Age at Onset Recorded Date/T chaz Not Specified Hypertension Unknown mother Diabetes mellitus Unknown Alzheimer's dementia Unknown father Cardiac disease Unknown Diabetes mellitus Unknown grandmother Diabetes mellitus Unknown Chronic obstructive pulmonary disease Unk nown Malignant neoplasm of breast Unknown Malignant neoplasm of colon Unknown aunt Malignant neoplasm of breast Unknown brother Diabetes mellitus Unknown grandfather Cerebrovascular accident (CVA) Unknown Relationship Condition Age at Onset Recorded Date/T chaz Not Specified Hypertension Unknown mother Diabetes mellitus Unknown Alzheimer's dementia Unknown father Cardiac disease Unknown Diabetes mellitus Unknown grandmother Diabetes mellitus Unknown Chronic obstructive pulmonary disease Unk nown Malignant neoplasm of breast Unknown Malignant neoplasm of colon Unknown aunt Malignant neoplasm of breast Unknown brother Diabetes mellitus Unknown grandfather Cerebrovascular accident (CVA) Unknown brother Malignant neoplasm of kidney Unknown Advance Directives No Advanced Directives Records Found Advance Directive Response Recorded Date/ Time Living Will Yes August 01, 2023 1 0:02am Do you have a Healthcare Power of [employer]? 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 Reason for Visit Intracranial meningi ros Oral dyskinesia Headache Neck pain Climacteric Chief Complaint INTRACRANIAL MENINGI ROS FOLLOW-UP SCAN 2 M FU 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 EORDER Reason for Visit Intracranial meningi ros Oral dyskinesia Headache Neck pain Climacteric Encounter for routine gynecological examination Chief Complaint 2 M FU 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 EORDER NODULES 4 M FU Reason for Visit Intracranial meningi ros Oral dyskinesia Headache Neck pain Climacteric Encounter for routine gynecological examination Intracranial meningioma Oral dyskinesia Headache Neck pain Chief Complaint 4 M FU Right breast nipple soreness RIGHT NIPPLE PAIN Reason for Visit Arthritis Intracranial meningioma Oral dyskinesia Breast pain, right Chief Complaint Benign neoplasm of c erebral meninges Chief Complaint EORDER Chief Complaint EORDER KNEE PAIN Chief Complaint Admit Date F/U MENINGIOMA May 24, 2024 1:1 4pm Chief Complaint Admit Date F/U MENINGIOMA May 24, 2024 1:1 4pm Climacteric symptoms July 15, 2024 8:34a m 11 MO FU September 15, 2024 10:28 am Reason for Visit Admit Date Dyspareunia July 15, 2024 8:34am Hot flashes due to menopause July 15 8:34am Menopausal and female climacteric states July 15, 2024 8:34am Chief Complaint Admit Date Climacteric symptoms July 15, 2024 8:34a m 11 MO FU September 15, 2024 10:28 am screen September 30, 2024 1:28 pm 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, 2024 1:17 pm Reason for Visit Admit Date Dyspareunia July 15, 2024 8:34am Hot flashes due to menopause July 15 8:34am Menopausal and female climacteric states July 15, 2024 8:34am Burning mouth syndrome September 15, 2024 10 :28am Intracranial meningioma September 15, 2024 1 0:28am Oral dyskinesia September 15, 2024 10:28 am Encounter for routine gynecological exam ination October 05, 2024 1:17pm Reason for Visit Admit Date Dyspareunia July 15, 2024 8:34am Hot flashes due to menopause July 15 8:34am Menopausal and female climacteric states July 15, 2024 8:34am Burning mouth syndrome September 15, 2024 10 :28am Intracranial meningioma September 15, 2024 1 0:28am Oral dyskinesia September 15, 2024 10:28 am Climacteric October 05, 2024 1:17 pm Encounter for routine gynecological exam ination October 05, 2024 1:17pm Additional Source Comments INFORMATION SOURCE (unrecogn ized section and content) DATE CREATED AUTHOR 08/28/2017 [facility] DATE CREATED AUTHOR KESHAWN DINERO [facility] Goals (unrecognized section and content) Goals may be documented in a n alternate sectionGoals may be documented in an alternate sectionGoals may be documented in an alternate sectionGoals may be documented in an alternate sectionGoals may be documented in an alternate sectionGoals may be documented in an alternate sectionGoals may be documented in an alternate sectionGoals may be documented in an alternate sectionGoals may be documented in an alternate sectionGoals may be documented in an alternate sectionGoals may be documented in an alternate sectionGoals may be documented in an alternate sectionGoals may be documented in an alternate section Care Teams (unrecognized sec tion and content) Team Status: Active Member Role Status Dates Dr. Pastor Naik MD Family Provider Active Dr. Alexander King MD Primary Care Provider Active Team Status: Inactive Member Role Status Dates Dr. Alexander King MD Primary Care Provider, Referr ing Provider Active Dr. Manuel Henderson MD Attending Provider Active Team Status: Inactive Member Role Status Dates Dr. Alexander King MD Primary Care Provider, Referr ing Provider Active Merary Dodge NUCLEAR EQUIPMENT RESEARCH ENGINEER, NUCLEAR EQUIPMENT RESEARCH ENGINEER-C Attending Provider Active Team Status: Inactive Member Role Status Dates Dr. Alexander King MD Primary Care Provider Active Merary Dodge NUCLEAR EQUIPMENT RESEARCH ENGINEER, NUCLEAR EQUIPMENT RESEARCH ENGINEER-C Attending Provider Active Team Status: Inactive Member Role Status Dates Dr. Alexander King MD Primary Care Provider Active Dr. Manuel Henderson MD Attending Provider, Referring Provider Active Team Status: Inactive Member Role Status Dates Dr. Alexander King MD Primary Care Pr ovider, Attending Provider, Referring Provider Active Team Status: Active Member Role Status Dates Dr. Alexander King MD Primary Care Provider Active Team Status: Inactive Member Role Status Dates Dr. Alexander King MD Primary Care Provider Active Start: May 24, 2024 End: May 24, 2024 Dr. Maneul Henderson MD Attending Provider Active Start: May 24, 2024 End: May 24, 2024 Dr. Manuel Henderson MD Referring Provider Active Start: May 24, 2024 End: May 24, 2024 Team Status: Inactive Member Role Status Dates Dr. Alexander King MD Primary Care Provider Active Start: June 22, 2024 End: June 22, 2024 Dr. Alexander King MD Attending Provider Active Start: June 22, 2024 End: June 22, 2024 Dr. Alexander King MD Referring Provider Active Start: June 22, 2024 End: June 22, 2024 Team Status: Active Member Role/Relationship Status Dates Dr. Alexander King MD Primary Care Provider Active Team Status: Inactive Member Role/Relationship Status Dates Dr. Alexander King MD Primary Care Provider Active Start: May 24, 2024 End: May 24, 2024 Dr. Manuel Henderson MD Attending Provider Active Start: May 24, 2024 End: May 24, 2024 Dr. Manuel Henderson MD Referring Provider Active Start: May 24, 2024 End: May 24, 2024 Team Status: Inactive Member Role/Relationship Status Dates Dr. Alexander King MD Primary Care Provider Active Start: June 22, 2024 End: June 22, 2024 Dr. Alexander King MD Attending Provider Active Start: June 22, 2024 End: June 22, 2024 Dr. Alexander King MD Referring Provider Active Start: June 22, 2024 End: June 22, 2024 Team Status: Inactive Member Role/Relationship Status Dates Dr. Alexander King MD Primary Care Provider Active Start: July 15, 2024 End: July 15, 2024 Dr. Alexander King MD Referring Provider Active Start: July 15, 2024 End: July 15, 2024 Merary Dodge NP, NUCLEAR EQUIPMENT RESEARCH ENGINEER-C Attending Provider Active Start: July 15, 2024 End: July 15, 2024 Team Status: Inactive Member Role/Relationship Status Dates Dr. Alexander King MD Primary Care Provider Active Start: September 15, 2024 End: September 15, 2024 Dr. Alexander King MD Referring Provider Active Start: September 15, 2024 End: September 15, 2024 Dr. Manuel Henderson MD Attending Provider Active Start: September 15, 2024 End: September 15, 2024 Team Status: Inactive Member Role/Relationship Status Dates Dr. Alexander King MD Primary Care Provider Active Start: June 22, 2024 End: June 22, 2024 Dr. Alexander King MD Attending Provider Active Start: June 22, 2024 End: June 22, 2024 Dr. Alexander King MD Referring Provider Active Start: June 22, 2024 End: June 22, 2024 Team Status: Inactive Member Role/Relationship Status Dates Dr. Alexander King MD Primary Care Provider Active Start: July 15, 2024 End: July 15, 2024 Dr. Alexander King MD Referring Provider Active Start: July 15, 2024 End: July 15, 2024 Merary Dodge NUCLEAR EQUIPMENT RESEARCH ENGINEER, NUCLEAR EQUIPMENT RESEARCH ENGINEER-C Attending Provider Active Start: July 15, 2024 End: July 15, 2024 Team Status: Inactive Member Role/Relationship Status Dates Dr. Alexander King MD Primary Care Provider Active Start: September 15, 2024 End: September 15, 2024 Dr. Alexander King MD Referring Provider Active Start: September 15, 2024 End: September 15, 2024 Dr. Manuel Henderson MD Attending Provider Active Start: September 15, 2024 End: September 15, 2024 Team Status: Active Member Role/Relationship Status Dates Dr. Alexander King MD Primary Care Provider Active Start: September 30, 2024 Merary Dodge NUCLEAR EQUIPMENT RESEARCH ENGINEER, NUCLEAR EQUIPMENT RESEARCH ENGINEER-C Attending Provider Active Start: September 30, 2024 Merary Dodge NUCLEAR EQUIPMENT RESEARCH ENGINEER, NUCLEAR EQUIPMENT RESEARCH ENGINEER-C Referring Provider Active Start: September 30, 2024 Team Status: Inactive Member Role/Relationship Status Dates Dr. Alexander King MD Primary Care Provider Active Start: October 05, 2024 End: October 05, 2024 Dr. Alexander King MD Referring Provider Active Start: October 05, 2024 End: October 05, 2024 Merary Dodge NUCLEAR EQUIPMENT RESEARCH ENGINEER, NUCLEAR EQUIPMENT RESEARCH ENGINEER-C Attending Provider Active Start: October 05, 2024 End: October 05, 2024 Team Status: Inactive Member Role/Relationship Status Dates Dr. Alexander King MD Primary Care Provider Active Start: September 30, 2024 End: September 30, 2024 Merary Dodge NUCLEAR EQUIPMENT RESEARCH ENGINEER, NUCLEAR EQUIPMENT RESEARCH ENGINEER-C Attending Provider Active Start: September 30, 2024 End: September 30, 2024 Merary Dodge NUCLEAR EQUIPMENT RESEARCH ENGINEER, NUCLEAR EQUIPMENT RESEARCH ENGINEER-C Referring Provider Active Start: September 30, 2024 End: September 30, 2024 FOR RECORDS PERTAINING TO PATIENTS WHO ARE OR HAVE BEEN ENROLLED IN A CHEMICAL DEPENDENCY/SUBSTANCEABUSE PROGRAM, SOME INFORMATION MAY BE OMITTED. This clinical summary was aggregated from multiple sources. Caution should be exercised in using it in the provision of clinical care. This summary normalizes information from multiple sources, and as a consequence, information in this document may materially change the coding, format and clinical context of patient data. In addition, data may be omitted in some cases. CLINICAL DECISIONS SHOULD BE BASED ON THE PRIMARY CLINICAL RECORDS. [employer] [facility]. provides no warranty or guarantee of the accuracy or completeness of information in this document.
== END | disposition home or self-care (01) ==
LOC: MTLAB 14:21
PROVIDERS: PCP Family Medicine
DX: T14.8XXA Other injury of unspecified body region, initial encounter (principal); W57.XXXA Bitten or stung by nonvenomous insect and other nonvenomous arthropods, initial encounter
CPT/HCPCS: 36415; 86617